=== PATIENT | female | born 1935 | race Caucasian/White ===

== ENCOUNTER 2017-03-12 14:53 | Emergency (ER) | payer OTHER ==
[2017-03-12 15:10] VITALS: BMI 34.3
[2017-03-12] MEDS ORDERED: LIDOCAINE 1%/EPI 1:100000 (50 ML MULTI DOSE VIAL) ONE (15:17)
--- NOTE | 2017-03-12 15:35 | PDOC ---
History of Present Illness - General History Source: Patient, Old Records Exam Limitations: No Limitations <Kasie Posadas - Last Filed: 03/12/17 15:37> - General History Source: Patient, Family, Old Records Exam Limitations: No Limitations - History of Present Illness Initial Comments: 03/12/17 15:48 The patient is a 81 year old female on coumadin for undetermined reason, who presents to the emergency department today with right thigh bleed. The patient states that she was sitting down when she began bleeding. The patient tried to wrap her thigh but the bleeding persisted. PCP: Dr. Kilgore [phone] <Wood Rojas - Last Filed: 03/12/17 15:48> <Wendy Carias - Last Filed: 03/12/17 18:30> - General Stated Complaint: LEG BLEED Time Seen by Provider: 03/12/17 15:08 Past History - Past Medical History Cardiac Disorders: Yes (A-Fib?) Hypercholesterolemia: Yes Thyroid Disease: Yes (hypothyroid) - Psycho/Social/Smoking Cessation Hx Anxiety: No Suicidal Ideation: No Smoking History: Never smoked Have you smoked in the past 12 months: No Information on smoking cessation initiated: No Hx Alcohol Use: No Drug/Substance Use Hx: No Substance Use Type: None <Kasie Posadas - Last Filed: 03/12/17 15:37> <Wood Rojas - Last Filed: 03/12/17 15:48> <Wendy Carias - Last Filed: 03/12/17 18:30> - Past Medical History Allergies/Adverse Reactions: Allergies Allergy/AdvReac Type Severity Reaction Status Date / Time No Known Allergies Allergy Verified 03/12/17 15:34 Home Medications: Ambulatory Orders Allopurinol 300 mg PO DAILY 03/12/17 Amlodipine Besylate [Norvasc -] 5 mg PO DAILY 03/12/17 Aspirin [Ecotrin] 81 mg PO DAILY 03/12/17 Cholecalciferol (Vitamin D3) [Vitamin D3] 2,000 unit PO DAILY 03/12/17 Furosemide [Lasix] 40 mg PO DAILY 03/12/17 Hydralazine HCl [Apresoline -] 75 mg PO BID 03/12/17 Losartan Potassium 100 mg PO DAILY 03/12/17 Methimazole 5 mg PO DAILY 03/12/17 Metoprolol Succinate [Toprol Xl] 100 mg PO BID 03/12/17 Pravastatin Sodium [Pravachol (Nf)] 80 mg PO HS 03/12/17 Warfarin Sodium [Coumadin] 6 mg PO DAILY 03/12/17 Review of Systems - Review of Systems Able to Perform ROS?: Yes Comments:: 03/12/17 15:48 CONSTITUTIONAL: Absent: fever, chills, diaphoresis, generalized weakness, malaise, loss of appetite HEENT: Absent: rhinorrhea, nasal congestion, throat pain, throat swelling, difficulty swallowing, mouth swelling, ear pain, eye pain, visual Changes CARDIOVASCULAR: Absent: chest pain, syncope, palpitations, irregular heart rate, lightheadedness , peripheral edema RESPIRATORY: Absent: cough, shortness of breath, dyspnea with exertion, orthopnea, wheezing, stridor, hemoptysis GASTROINTESTINAL: Absent: abdominal pain, abdominal distension, nausea, vomiting, diarrhea, constipation, melena, hematochezia GENITOURINARY: Absent: dysuria, frequency, urgency, hesitancy, hematuria, flank pain, genital pain MUSCULOSKELETAL: Absent: myalgia, arthralgia, joint swelling SKIN: Absent: rash, itching, pallor HEMATOLOGIC/IMMUNOLOGIC: Present: Easy bleeding Absent: easy bruising, lymphadenopathy, frequent infections ENDOCRINE: Absent: unexplained weight gain, unexplained weight loss, heat intolerance, cold intolerance NEUROLOGIC: Absent: headache, focal weakness or paresthesias, dizziness, unsteady gait, seizure, mental status changes, bladder or bowel incontinence PSYCHIATRIC: Absent: anxiety, depression, suicidal or homicidal ideation, hallucinations. <Wood Rojas - Last Filed: 03/12/17 15:48> *Physical Exam - Vital Signs Last Vital Signs Temp Pulse Resp BP Pulse Ox 98.1 F 84 18 191/93 03/12/17 15:02 03/12/17 15:02 03/12/17 15:02 03/12/17 15:02 <Kasie Posadas - Last Filed: 03/12/17 15:37> - Vital Signs Last Vital Signs Temp Pulse Resp BP Pulse Ox 98.1 F 84 18 191/93 03/12/17 15:02 03/12/17 15:02 03/12/17 15:02 03/12/17 15:02 - Physical Exam Comments: 03/12/17 15:49 GENERAL: Well developed, well nourished. Awake and alert. In no acute distress. HEENT: Normocephalic, atraumatic. PERRLA, EOMI. No conjunctival pallor. Sclera are non- icteric. Moist mucous membranes. Oropharynx is clear. NECK: Supple. Full ROM. No JVD. Carotid pulses 2+ and symmetric, without bruits. No thyromegaly. No lymphadenopathy. CARDIOVASCULAR: Regular rate and rhythm. No murmurs, rubs, or gallops. Distal pulses are 2+ and symmetric. PULMONARY: No evidence of respiratory distress. Lungs clear to auscultation bilaterally. No wheezing, rales or rhonchi. ABDOMINAL: Soft. Non-tender. Non-distended. No rebound or guarding. No organomegaly. Normoactive bowel sounds. MUSCULOSKELETAL Normal range of motion at all joints. No bony deformities or tenderness. No CVA tenderness. EXTREMITIES: (+) Active bleeding from a puncture lesion to post medial aspect of the distal thigh. Appears to be a small underlining varicosity. Thigh was soft and there was no subcutaneous hematoma development. No cyanosis. No clubbing. No edema. SKIN: Warm and dry. Normal capillary refill. No rashes. No jaundice. NEUROLOGICAL: Alert, awake, appropriate. Cranial nerves 2-12 intact. No deficits to light touch and temperature in face, upper extremities and lower extremities. No motor deficits in the in face, upper extremities and lower extremities. Normoreflexic in the upper and lower extremities. Normal speech. Toes are downgoing bilaterally. PSYCHIATRIC: Cooperative. Good eye contact. Appropriate mood and affect. <Wood Rojas - Last Filed: 03/12/17 15:48> - Vital Signs Last Vital Signs Temp Pulse Resp BP Pulse Ox 98.1 F 84 18 191/93 03/12/17 15:02 03/12/17 15:02 03/12/17 15:02 03/12/17 15:02 <Wendy Carias - Last Filed: 03/12/17 18:30> ED Treatment Course - LABORATORY CBC & Chemistry Diagram: 03/12/17 15:50 - ADDITIONAL ORDERS Additional order review: Laboratory Results 03/12/17 03/12/17 15:50 15:50 INR 2.71 H PTT (Actin FS) 41.1 H 03/12/17 15:50 RBC 4.18 MCV 87.8 MCHC 32.5 RDW 16.6 H MPV 8.7 Neutrophils % 80.8 Lymphocytes % 9.6 Monocytes % 6.7 Eosinophils % 1.7 Basophils % 1.2 <Wendy Carias - Last Filed: 03/12/17 18:30> Medical Decision Making - Medical Decision Making 03/12/17 15:37 81-year-old female with history of hypertension, on Coumadin for unclear reasons presents to the emergency department with bleeding from a varicosity that occurred spontaneously earlier this afternoon. Plan: 1. The patient was prepped with Betadine and anesthetized with 4 mL of 1% lidocaine with epinephrine. 4-0 Prolene was used to place a [id number] stitch at the bleeding site with appropriate hemostasis achieved. 2. Check CBC 3. Check PT/INR 4. Observe the bleeding site for hematoma and continued hemostasis 5. Observe and reevaluate <Kasie Posadas - Last Filed: 03/12/17 15:37> - Medical Decision Making 03/12/17 18:29 assumed care of pt at [address] Posadas,. pt here with bleeding varicose vein on coumadin which was tied off, and dressed. since observation no rebleeding or signs of induration or hematoma. given jv wrap for additional support and compression. advised to wear compression stocking. INR 2.7 within therapuetic limits. told to return for reeval or suture removal in 10 days. and follow [facility] pcp. nabil <Wendy Carias - Last Filed: 03/12/17 18:30> *DC/Admit/Observation/Transfer - Attestations Physician Attestion: 03/12/17 15:39 I, Dr. Kasie Posadas, attest that the scribes documentation that appears above has been prepared under my direction and personally reviewed by me in its entirety. I confirmed that the note above accurately reflects all work, treatment, procedures, and medical decision-making performed by me. <Kasie Posadas - Last Filed: 03/12/17 15:37> - Attestations Scribe Attestion: 03/12/17 15:49 Documentation prepared by Wood Rojas, acting as biomedical engineering technologist for Kasie Posadas MD. <Wood Rojas - Last Filed: 03/12/17 15:48> - Discharge Dispostion Admit: No <Wendy Carias - Last Filed: 03/12/17 18:30> Diagnosis at time of Disposition: Hemorrhage of varicose veins of right lower extremity - Referrals Referrals: Bg Kilgore MD [Primary Care Provider] - - Patient Instructions Printed Discharge Instructions: Varicose Veins (Alternative Therapy), Treatment of Varicose Veins of the Leg Additional Instructions: you should wear support stockings for prevention of worsening varicose veins. return for suture removal in 10 days. or sooner for signs of infection such as fever, redness , swelling or yellow discharge. if rebleeding, you should hold compression for 15 minutes. if it does not stop then return to ED. you should elevate legs today. use jv wrap for additional compression for 48 hours. follow up with your regular doctor. your INR is 2.7.
[2017-03-12 15:53] LABS: BASOPHIL 1.2 % (0-2.0); EOSINOPHIL 1.7 % (0-4.5); MCH 28.5 pg (25.7-33.7); MCHC 32.5 g/dl (32.0-36.0); MEAN CELL VOLUME 87.8 fl (80-96); MEAN PLT VOLUME 8.7 fl (7.5-11.1); NEUTROPHILS 80.8 % (42.8-82.8); PLATELET COUNT 168 K/MM3 (134-434); RDW 16.6 % (11.6-15.6); WHITE BLOOD COUNT 8.2 K/mm3 (4.0-10.0)
[2017-03-12 16:31] LABS: INR 2.71 (0.82-1.09); PROTHROMBIN TIME (PATIENT) 30.4 SEC (9.98-11.88)
[2017-03-12 18:42] VITALS: BP 172/78; PULSE 90; TEMP 98.4
== END 2017-03-12 18:43 | disposition home or self-care (01) ==
LOC: JER 14:53
PROC: 0HQHXZZ Repair Right Upper Leg Skin, External Approach (ICD-10-PCS; principal; 2017-03-12)
DX: I83.891 Varicose veins of right lower extremity with other complications (principal); I10 Essential (primary) hypertension; I48.91 Unspecified atrial fibrillation; Z79.01 Long term (current) use of anticoagulants; E03.9 Hypothyroidism, unspecified
CPT/HCPCS: 12001-25; 36415; 85025; 85610; 85730; 99283-25

== ENCOUNTER 2017-11-20 11:47 | Inpatient (IN) | payer OTHER ==
[2017-11-20 12:16] VITALS: BMI 35.7
--- NOTE | 2017-11-20 13:44 | PDOC ---
History of Present Illness - General Chief Complaint: Shortness of Breath Stated Complaint: SOB Time Seen by Provider: 11/20/17 13:07 History Source: Patient, Family Exam Limitations: No Limitations - History of Present Illness Initial Comments: This is a 81 YOF with h/o chronic constipation, A-fib on coumadin, HTN, HLD, and RLE venous stasis ulcer with prior bleeding varicose vein (seen by Dr. Prabhjot Long), who was advised by her PCP Dr. Kilgore to come to the ED to be seen for SOB, leg pain, and abdominal distention. The patient and her family state that for the past few weeks, she has been having worsening abdominal distention and leg swelling/pain. She additionally has had worsening shortness of breath for the past several days, which she describes as becoming winded quickly when exerting herself. She has been taking MiraLax as always for her chronic constipation, her last bowel movement was this morning and was small, and there has been no change in her baseline constipation. She has had no night sweats, fever, chills, nausea, vomiting, diarrhea, chest pain, abdominal pain, back pain, black/bloody stool, cough, or other symptoms. The family estimates she has gained at least 10 lbs in the past week. Past History - Past Medical History Allergies/Adverse Reactions: Allergies Allergy/AdvReac Type Severity Reaction Status Date / Time No Known Allergies Allergy Verified 03/12/17 15:34 Home Medications: Ambulatory Orders Allopurinol 300 mg PO DAILY 03/12/17 Amlodipine Besylate [Norvasc -] 5 mg PO DAILY 03/12/17 Aspirin [Ecotrin] 81 mg PO DAILY 03/12/17 Cholecalciferol (Vitamin D3) [Vitamin D3] 2,000 unit PO DAILY 03/12/17 Furosemide [Lasix] 40 mg PO DAILY 03/12/17 Losartan Potassium 100 mg PO DAILY 03/12/17 Methimazole 5 mg PO DAILY 03/12/17 Metoprolol Succinate [Toprol Xl] 100 mg PO BID 03/12/17 Pravastatin Sodium [Pravachol (Nf)] 80 mg PO HS 03/12/17 Warfarin Sodium [Coumadin] 6 mg PO DAILY 03/12/17 hydrALAZINE HCL [Apresoline -] 100 mg PO BID 03/12/17 Cardiac Disorders: Yes (A-Fib) COPD: No HTN: Yes Hypercholesterolemia: Yes Thyroid Disease: Yes (hypothyroid) - Suicide/Smoking/Psychosocial Hx Smoking History: Never smoked Have you smoked in the past 12 months: No Hx Alcohol Use: No Drug/Substance Use Hx: No Substance Use Type: None *Physical Exam - Vital Signs Last Vital Signs Temp Pulse Resp BP Pulse Ox 97.9 F 80 24 134/73 95 11/20/17 12:13 11/20/17 12:13 11/20/17 12:13 11/20/17 12:13 11/20/17 12:13 - Physical Exam General Appearance: Yes: Nourished, Appropriately Dressed, Mild Distress, Obese , Other (answering questions appropriately, accompanied by family, standing and swaying uncomfortably back and forth, holding her abdomen) HEENT: positive: EOMI, DICK, Normal Voice, Hearing Grossly Normal. negative: Scleral Icterus (R), Scleral Icterus (L), Nasal Congestion Neck: positive: Trachea midline, Supple. negative: Tender, Rigid Respiratory/Chest: positive: Lungs Clear, Normal Breath Sounds, Other (shallow respirations). negative: Respiratory Distress, Crackles, Rhonchi, Stridor, Wheezing Cardiovascular: positive: Regular Rhythm, Regular Rate, Edema (1+ pitting BLE). negative: Murmur Gastrointestinal/Abdominal: positive: Normal Bowel Sounds, Tender (minimal diffuse), Distended, Other (very protuberant tight abdomen, difficult to evaluate for organomegaly or pulsatile masses) Musculoskeletal: positive: Normal Inspection. negative: Decreased Range of Motion, Vertebral Tenderness Extremity: positive: Normal Capillary Refill, Normal Inspection, Normal Range of Motion. negative: Tender, Cyanosis Integumentary: positive: Normal Color, Dry, Warm, Other (very dry flaky skin BLE distally, BLE with venous stasis changes). 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 On exam VS are wnl, she is standing an swaying uncomfortably back and forth, holding her abdomen, very protuberant tight abdomen. Heart and lungs clear exams except shallow breathing, legs are painful with venous stasis changes, skin very dry/flaky. DDX IBNLT constipation, ascites, hemoperitoneum, diverticulitis, malignancy, ascites, organomegaly, AAA, etc. Ordered is CBCD CMP Mg Phos Cardiac panel BNP Lactate BCx Lipase UA and UCx EKG CXR and CT abdomen/pelvis. 11/20/17 15:17 INR is 2.96, BUN/Cr 46/1.8, LDH 292, otherwise blood labs unremarkable. Lactate is 2.2 (but notably patient gained weight even on diuretics Spoke with Dr. Kilgore who admits to Telemetry inpatient. States that she had ascites positive by US last week. Placed on diuretics but continued to gain. Requests consult placed to Dr. Irving. Decision to Admit and consult order placed. 11/20/17 16:00 Patient requesting pain medication for legs, Alk Phos 149 but otherwise LFTs wnl , given 650 Tylenol PO. *DC/Admit/Observation/Transfer Diagnosis at time of Disposition: Abdominal distention, Shortness of breath, Acute kidney injury - Discharge Dispostion Condition at time of disposition: Guarded Admit: Yes - Referrals - Patient Instructions - Post Discharge Activity
[2017-11-20 14:27] LABS: VENOUS PC02 45.6 mmHg (38-52); VENOUS PH 7.37 (7.32-7.42); VENOUS PO2 42.8 mmHg (28-48)
[2017-11-20 14:33] LABS: BASO % 1.4 % (0-2.0); EOS % 1.9 % (0-4.5); HEMATOCRIT 38.1 % (32.4-45.2); MCH 25.6 pg (25.7-33.7); MCHC 31.6 g/dl (32.0-36.0); MEAN CELL VOLUME 80.9 fl (80-96); MEAN PLT VOLUME 8.8 fl (7.5-11.1); MONO % 7.6 % (3.8-10.2); NEUT % 79.1 % (42.8-82.8); PLATELET COUNT 246 K/MM3 (134-434); RBC 4.71 M/mm3 (3.60-5.2); RDW 17.5 % (11.6-15.6); WHITE BLOOD COUNT 7.2 K/mm3 (4.0-10.0)
[2017-11-20 14:47] LABS: INR 2.96 (0.82-1.09); PROTHROMBIN TIME (PATIENT) 33.4 SEC (9.98-11.88)
[2017-11-20 14:50] LABS: ACTIVATED PTT 43.1 SECONDS (26.9-34.4)
[2017-11-20 15:00] LABS: ALBUMIN 3.4 g/dl (3.4-5.0); ANION GAP 14 (8-16); BLOOD UREA NITROGEN 46 mg/dL (7-18); CALCIUM 8.9 mg/dL (8.5-10.1); CHLORIDE 100 mmol/L (98-107); CO2 24 mmol/L (21-32); CREATININE 1.8 mg/dL (0.55-1.02); GLUCOSE,RANDOM 91 mg/dL (74-106); LDH 292 U/L (84-246); LIPASE 107 U/L (73-393); POTASSIUM 4.3 mmol/L (3.5-5.1); SGOT/AST 22 U/L (15-37); SGPT/ALT 18 U/L (12-78); SODIUM 138 mmol/L (136-145)
[2017-11-20 15:04] LABS: ALK PHOS 149 U/L (45-117)
--- NOTE | 2017-11-20 15:10 | PDOC ---
Attending Attestation - Resident Resident Name: Christine Jeong - ED Attending Attestation I have performed the following: I have examined & evaluated the patient, The case was reviewed & discussed with the resident, I agree w/resident's findings & plan, Exceptions are as noted - HPI HPI: 11/20/17 15:05 81y/o F p/w progressive abdominal distension and now MERINO over weeks. workup in Dr. Kilgore's office was unremarkable this week, sent to ED today for CTAP and further workup. no vomiting, some constipation. no edema, + SOB. at baseline sleeps in seated position. - Physicial Exam PE: 11/20/17 15:08 VSS well appearing speaking full sentences no jvd bibasilar crackles abd distended, tympanic. diffuse discomfort to palpation without guarding/ rebound. peripheral venous stasis changes, chronic - Medical Decision Making 11/20/17 15:09 Patient seen and evaluated with the resident. I agree with the overall evaluation, assessment, and management with the following summary of visit: 81-year-old female with progressive abdominal distention causing dyspnea on exertion. Question ascites versus obstruction, question primary cardiac pulmonary in etiology. Labs, urinalysis CT of the abdomen and pelvis. Chest and abdomen x-rays and echocardiogram performed as outpatient within the last week showed no acute abnormalities Reassess, likely admission, will discuss with Dr. Kilgore Heart Score/ECG Review #1 ECG reviewed & interpreted by me at: 14:28 11/20/17 15:11 afib at 76. inferior and V4-V6 TWI. no acute st changes.
--- NOTE | 2017-11-20 15:44 | EKG ---
Test Reason : Blood Pressure : / mmHG Vent. Rate : 074 BPM Atrial Rate : 075 BPM P-R Int : 000 ms QRS Dur : 100 ms QT Int : 390 ms P-R-T Axes : 000 105 -31 degrees QTc Int : 432 ms POOR DATA QUALITY, INTERPRETATION MAY BE ADVERSELY AFFECTED ATRIAL FIBRILLATION RIGHTWARD AXIS CANNOT RULE OUT ANTERIOR INFARCT , AGE UNDETERMINED ABNORMAL ECG NO PREVIOUS ECGS AVAILABLE Confirmed by NILS IRVING MD ([id number]) on 11/20/2017 3:44:20 PM Referred By: Confirmed By:NILS IRVING MD
[2017-11-20] MEDS ORDERED: ACETAMINOPHEN 325 MG TABLET (FP) PO ONE (16:00)
[2017-11-20] MEDS ORDERED: ACETAMINOPHEN 325 MG TABLET (FP) ONE (16:25)
[2017-11-20] MEDS: WARFARIN NA 3 MG TABLET PO SCH (21:33)
[2017-11-20] MEDS: ATORVASTATIN CA 20 MG TABLET (FP) PO SCH (21:33)
[2017-11-20] MEDS: hydrALAZINE HCL 50 MG TABLET (FP) PO SCH (21:33)
[2017-11-20] MEDS ORDERED: PATIENT'S OWN MEDICATION (NON-FORMULARY) (Pravastatin Sodium 80 MG) PO SCH (22:00)
[2017-11-21 07:12] LABS: EOS % 2.2 % (0-4.5); HEMATOCRIT 36.2 % (32.4-45.2); HEMOGLOBIN 11.4 GM/dL (10.7-15.3); LYMPH % 13.5 % (8-40); MCH 25.4 pg (25.7-33.7); MCHC 31.4 g/dl (32.0-36.0); MEAN CELL VOLUME 80.9 fl (80-96); MEAN PLT VOLUME 8.8 fl (7.5-11.1); MONO % 10.8 % (3.8-10.2); NEUT % 71.5 % (42.8-82.8); PLATELET COUNT 206 K/MM3 (134-434); RBC 4.48 M/mm3 (3.60-5.2); RDW 17.4 % (11.6-15.6); WHITE BLOOD COUNT 5.5 K/mm3 (4.0-10.0)
[2017-11-21 08:10] LABS: ALBUMIN 3.1 g/dl (3.4-5.0); ANION GAP 11 (8-16); BLOOD UREA NITROGEN 44 mg/dL (7-18); CALCIUM 8.6 mg/dL (8.5-10.1); CHLORIDE 102 mmol/L (98-107); CO2 28 mmol/L (21-32); GLUCOSE,RANDOM 107 mg/dL (74-106); POTASSIUM 4.2 mmol/L (3.5-5.1); SODIUM 141 mmol/L (136-145)
[2017-11-21 08:15] LABS: ALK PHOS 129 U/L (45-117); CREATININE 1.8 mg/dL (0.55-1.02); SGOT/AST 19 U/L (15-37); SGPT/ALT 16 U/L (12-78); TOT PROT 6.3 g/dl (6.4-8.2)
--- NOTE | 2017-11-21 08:59 | HP ---
Admitting History and Physical - Admission History of Present Illness: 81 YOF with h/o chronic constipation, A-fib on coumadin, HTN, HLD, and RLE venous stasis ulcer with prior bleeding varicose vein (seen by Dr. Prabhjot Long) , who was seen in office a few days ago with progressive swelling and refused admission and was started on diuretics and was seen in office yesterday and gained more wt and was advised to go to the ED to be seen for SOB, leg pain, and abdominal distention. The patient and her family state that for the past few weeks, she has been having worsening abdominal distention and leg swelling/ pain. She additionally has had worsening shortness of breath for the past several days, which she describes as becoming winded quickly when exerting herself. She has been taking MiraLax as always for her chronic constipation, her last bowel movement was this morning and was small, and there has been no change in her baseline constipation. She has had no night sweats, fever, chills , nausea, vomiting, diarrhea, chest pain, abdominal pain, back pain, black/ bloody stool, cough, or other symptoms. The family estimates she has gained at least 10 lbs in the past week. - Past Medical History Cardiovascular: Yes: AFIB, CHF, HTN, Other (venous insuficiency varicose veins) Pulmonary: Yes: COPD Gastrointestinal: Yes: Constipation, Other (has refused colonoscopy) - Smoking History Smoking history: Never smoked Have you smoked in the past 12 months: No - Alcohol/Substance Use Hx Alcohol Use: No Home Medications - Allergies Allergies/Adverse Reactions: Allergies Allergy/AdvReac Type Severity Reaction Status Date / Time No Known Allergies Allergy Verified 03/12/17 15:34 - Home Medications Home Medications: Ambulatory Orders Allopurinol 300 mg PO DAILY 03/12/17 Amlodipine Besylate [Norvasc -] 5 mg PO DAILY 03/12/17 Aspirin [Ecotrin] 81 mg PO DAILY 03/12/17 Cholecalciferol (Vitamin D3) [Vitamin D3] 2,000 unit PO DAILY 03/12/17 Furosemide [Lasix] 40 mg PO BID 03/12/17 Losartan Potassium 100 mg PO DAILY 03/12/17 Methimazole 5 mg PO DAILY 03/12/17 Metoprolol Succinate [Toprol Xl] 100 mg PO BID 03/12/17 Pravastatin Sodium [Pravachol (Nf)] 80 mg PO HS 03/12/17 Warfarin Sodium [Coumadin] 6 mg PO HS 03/12/17 hydrALAZINE HCL [Apresoline -] 100 mg PO BID 03/12/17 Acetaminophen 325 mg PO Q4H PRN 11/20/17 Polyethylene Glycol 3350 [Miralax (For Daily Use) -] 17 gm PO DAILY PRN Review of Systems - Review of Systems Cardiovascular: reports: Edema, Shortness of Breath. denies: Chest Pain Respiratory: reports: SOB, SOB on Exertion Gastrointestinal: reports: Abdominal Pain, Bloating, Constipation Genitourinary: denies: Burning, Dysuria, Flank Pain Physical Examination Vital Signs: Vital Signs Temperature 97.5 F L 11/21/17 06:30 Pulse Rate 69 11/21/17 06:30 Respiratory Rate 18 11/21/17 06:30 Blood Pressure 128/58 11/21/17 06:30 O2 Sat by Pulse Oximetry (%) 96 11/20/17 21:00 Neck: Yes: Supple Cardiovascular: Yes: S1, S2 Respiratory: Yes: Diminished, Rales Gastrointestinal: Yes: Normal Bowel Sounds, Soft, Ascites, Distention. No: Tenderness Edema: Yes Labs: CBC, BMP 11/21/17 06:27 11/21/17 06:27 Imaging - Results Cat Scan: Report Reviewed Problem List - Problems (1) Ascites Assessment/Plan: IV LASIX GI CONSULT CT NOTED Code(s): R18.8 - OTHER ASCITES (2) CHF (congestive heart failure) Assessment/Plan: IV LASIX ECHO CARDIO Code(s): I50.9 - HEART FAILURE, UNSPECIFIED (3) Abdominal distention Assessment/Plan: ABOVE Code(s): R14.0 - ABDOMINAL DISTENSION (GASEOUS) (4) Acute kidney injury Assessment/Plan: DUE TO DIURETICS CONTINUE WITH LASIX MONITOR Code(s): N17.9 - ACUTE KIDNEY FAILURE, UNSPECIFIED (5) Venous stasis ulcer Code(s): I83.009 - VARICOSE VEINS OF UNSP LOWER EXTREMITY W ULCER OF UNSP SITE; L97.909 - NON-PRS CHRONIC ULC UNSP PRT OF UNSP LOW LEG W UNSP SEVERITY
--- NOTE | 2017-11-21 09:25 | CON.CARD ---
Consult Consult Specialty:: Cardiology Referred by:: Dr. Torres Reason for Consultation:: Dyspnea with evidence of CHF - History of Present Illness Chief Complaint: Progressive SOB and leg edema History of Present Illness: 81 year-old woman with a PMHx of atrial fibrillation on Warfarin, HTN, HLD, venous stasis with ulcer and prior bleeding varicose vein (seen by Dr. Prabhjot Long), chronic constipation, admitted 11/20/2017 with progressive SOB, leg pain and abdominal distention. The patient has been having worsening shortness of breath on exertion with markedly decreased exercise tolerance, abdominal distention and leg swelling/ pain for several weeks before admission. She has been taking MiraLax as always for her chronic constipation. She has gained at least 10 lbs in the past week. She denies SOB at rest, chest pain, palpitation, dizziness, syncope or near syncope. No orthopnea on PND. ECG 11/20/2017 showed atrial fibrillation with controlled VR at 74 BPM with IVCD and inferior and lateral ST and T abnormalities. CT chest and abdomen 11/20/2017 revealed cardiomegaly, CHF, pleural effusion and free fluid in the abdomen. Echo 11/21/2017: LV is "D" shape with paradoxical septal motion and normal LV systolic function. RV is dilated and hypokinetic. Severe LA and RA dilatation. Severe pulmonary hypertension. PASP = 106 mmHg. - History Source History Provided By: Patient, Medical Record Limitations to Obtaining History: No Limitations - Past Medical History Cardio/Vascular: Yes: AFIB, CHF, HTN Gastrointestinal: Yes: Ascites, Other (Constipation) ...: No - Alcohol/Substance Use Hx Alcohol Use: No - Smoking History Smoking history: Never smoked Have you smoked in the past 12 months: No Home Medications - Allergies Allergies/Adverse Reactions: Allergies Allergy/AdvReac Type Severity Reaction Status Date / Time No Known Allergies Allergy Verified 03/12/17 15:34 - Home Medications Home Medications: Ambulatory Orders Allopurinol 300 mg PO DAILY 03/12/17 Amlodipine Besylate [Norvasc -] 5 mg PO DAILY 03/12/17 Aspirin [Ecotrin] 81 mg PO DAILY 03/12/17 Cholecalciferol (Vitamin D3) [Vitamin D3] 2,000 unit PO DAILY 03/12/17 Furosemide [Lasix] 40 mg PO BID 03/12/17 Losartan Potassium 100 mg PO DAILY 03/12/17 Methimazole 5 mg PO DAILY 03/12/17 Metoprolol Succinate [Toprol Xl] 100 mg PO BID 03/12/17 Pravastatin Sodium [Pravachol (Nf)] 80 mg PO HS 03/12/17 Warfarin Sodium [Coumadin] 6 mg PO HS 03/12/17 hydrALAZINE HCL [Apresoline -] 100 mg PO BID 03/12/17 Acetaminophen 325 mg PO Q4H PRN 11/20/17 Polyethylene Glycol 3350 [Miralax (For Daily Use) -] 17 gm PO DAILY PRN Review of Systems - Review of Systems Constitutional: reports: Weakness Eyes: reports: No Symptoms HENT: reports: No Symptoms Neck: reports: No Symptoms Cardiovascular: reports: Edema, Shortness of Breath Respiratory: reports: SOB, SOB on Exertion Gastrointestinal: reports: Constipation Genitourinary: reports: No Symptoms Breasts: reports: No Symptoms Reported Musculoskeletal: reports: No Symptoms Integumentary: reports: Change in Color, Erythema Psychiatric: reports: No Symptoms Vital Signs: Vital Signs Temperature 97.5 F L 11/21/17 06:30 Pulse Rate 69 11/21/17 06:30 Respiratory Rate 18 11/21/17 06:30 Blood Pressure 128/58 11/21/17 06:30 O2 Sat by Pulse Oximetry (%) 96 11/20/17 21:00 Constitutional: Yes: Well Nourished, No Distress, Calm HENT: Yes: Atraumatic, Normocephalic Neck: Yes: Supple, Trachea Midline Respiratory: Yes: Regular, Dullness, Poor Air Entry, Rales Gastrointestinal: Yes: Soft, Abdomen, Obese, Ascites, Distention Cardiovascular: Yes: Pulse Irregular JVD: Yes Carotid Bruit: No PMI: Non-Displaced Heart Sounds: Yes: S1, S2 Murmur: Yes: Systolic Murmur, Grade 1 Musculoskeletal: Yes: Joint Stiffness Extremities: Yes: Erythema Edema: LLE: 1+, RLE: 1+ Peripheral Pulses: 1+ Left Carotid, 1+ Right Carotid, 1+ Left Doralis Pedis, 1+ Right Dorsalis Pedis Integumentary: Yes: Erythema (Bilteral legs) - Other Data Labs, Other Data: CBC, BMP 11/21/17 06:27 11/21/17 06:27 INR, PTT INR 2.96 (0.82-1.09) H 11/20/17 14:02 Troponin, BNP 11/20/17 11/20/17 11/20/17 14:02 14:03 16:35 Troponin I 0.04 Cancelled Cancelled 11/21/17 06:27 Troponin I 0.04 Troponin, BNP 11/20/17 11/20/17 11/20/17 14:02 14:03 16:35 Troponin I 0.04 Cancelled Cancelled 11/21/17 06:27 Troponin I 0.04 ECG 11/20/2017 showed atrial fibrillation with controlled VR at 74 BPM with IVCD and inferior and lateral ST and T abnormalities. Echo: Report Reviewed (Echo 11/21/2017: LV is "D" shape with paradoxical septal motion and normal LV systolic function. RV is dilated and hypokinetic. Severe LA and RA dilatation. Severe pulmonary hypertension. PASP = 106 mmHg.) Ejection Fraction %: LVEF > or = 40 % (65%) Assessment/Plan 81 year-old woman with a PMHx of atrial fibrillation on Warfarin, HTN, HLD, venous stasis with ulcer and prior bleeding varicose vein (seen by Dr. Prabhjot Long), chronic constipation, admitted 11/20/2017 with progressive SOB, leg pain and abdominal distention with evidence of fluid overload. ECG 11/20/2017 showed atrial fibrillation with controlled VR at 74 BPM with IVCD and inferior and lateral ST and T abnormalities. CT chest and abdomen 11/20/2017 revealed cardiomegaly, CHF, pleural effusion and free fluid in the abdomen. Echo 11/21/2017: LV is "D" shape with paradoxical septal motion and normal LV systolic function. RV is dilated and hypokinetic. Severe LA and RA dilatation. Severe pulmonary hypertension. PASP = 106 mmHg. 1) CHF: Acute diastolic CHF, right heart failure and severe pulmonary hypertension. Diuresis with IV Lasix 40 mg q12h to keep Os > Is. Monitor renal function and electrolytes. Daily weight. Pulmonary evaluation to rule out pulmonary causes of severe pulmonary hypertension (Group III pulmonary hypertension). 2) Chronic atrial fibrillation: Ventricular rate is well controlled. Continue metoprolol Continue warfarin to keep INR 2-3. 3) HTN: BP controlled. Will discontinue Norvasc and hydralazine while receiving IV Lasix. Continue Metoprolol.
--- NOTE | 2017-11-21 09:43 | PN ---
Progress Note (short form) - Note Progress Note: ID CONSULT DICTATED imp/reccd elevated lactic acid- resolved increasing abdominal girth-ascites- ?gi versus cardiac s/p laser treatment of varicose veins both legs with incresed right ankle pain ( ulcers have healed) chronic venous stasis d/w daughter at the bedside will get xray of right ankle GI and Cardiology f/u no need for antibiotics at this time Problem List - Problems (1) Lactic acidosis Code(s): E87.2 - ACIDOSIS (2) Abdominal distention Code(s): R14.0 - ABDOMINAL DISTENSION (GASEOUS) (3) Ascites Code(s): R18.8 - OTHER ASCITES (4) Chronic venous stasis dermatitis Code(s): I87.2 - VENOUS INSUFFICIENCY (CHRONIC) (PERIPHERAL) (5) Right ankle pain Code(s): M25.571 - PAIN IN RIGHT ANKLE AND JOINTS OF RIGHT FOOT
[2017-11-21] MEDS: hydrALAZINE HCL 50 MG TABLET (FP) PO SCH (09:58)
[2017-11-21] MEDS: LOSARTAN POTASSIUM 50 MG TABLET (FP) PO SCH (09:58)
[2017-11-21] MEDS: ALLOPURINOL 300 MG TABLET (FP) PO SCH (09:58)
[2017-11-21] MEDS: METHIMAZOLE 5 MG TABLET (FP) PO SCH (09:58)
[2017-11-21] MEDS ORDERED: PATIENT'S OWN MEDICATION (NON-FORMULARY) (Losartan Potassium [Losartan Potassium] 100 MG) PO SCH (10:00)
--- NOTE | 2017-11-21 11:51 | CONS ---
INFECTIOUS DISEASE CONSULTATION DATE OF CONSULTATION: DATE OF DICTATION: 11/21/2017 REQUESTING PHYSICIAN: Bg Kilgore MD HISTORY OF PRESENT ILLNESS: This is a 81-year-old woman. She lives at home with her . She has a history of chronic constipation, atrial fibrillation on Coumadin, bilateral venous stasis ulcers. She has had laser surgery to both her legs, two to the left and one to the right which were completed about 2 months ago. She made a trip with her for 10 days to [place] because her brother . [place] and complained of worsening abdominal distention. She reports she feels her abdomen is like a balloon, and she states because it is so large, she is having trouble breathing. She has had no fever. She has had no chills. She had 1 small bowel movement this morning. She has no nausea, vomiting, chest pain, or abdominal pain. She has noted this abdominal girth as well. She complains that her right ankle is painful. She states it has been painful the entire time since she had the laser surgery to her legs, but that the pain is still present and perhaps has increased. Of note, the family notes that the superficial ulcerations on her legs, especially the right leg, have all healed and that the erythema to her leg from her venous stasis is at its baseline. ALLERGIES: She has no known drug allergies. MEDICATIONS AT HOME: Include allopurinol, amlodipine, aspirin, vitamin D, Lasix, losartan, methimazole, metoprolol, Pravachol, Coumadin, and Apresoline. PAST MEDICAL HISTORY: Notable for a history of atrial fibrillation, heart failure, hypertension, chronic venous stasis with varicose veins, COPD, chronic constipation. SOCIAL HISTORY: There is no history of any cigarette or substance use. Of note, she just returned from [place]. PHYSICAL EXAMINATION: General: She is awake and alert. Vital Signs: Temperature is 97.5, pulse of 69, blood pressure 128/58, respiratory rate is 18. HEENT: She is normocephalic. Her eyes are anicteric. She has no thrush. Neck: Supple. Lungs: Diminished breath sounds at the bases. Heart: Regular rate and rhythm. Abdomen: Distended, soft. Question of ascites. She has bilateral subcutaneous flank edema. Extremities: Notable for bilateral venous stasis changes. The right ankle has no swelling, but she reports discomfort on touching the leg. LABORATORY DATA: Labs are notable for a white count of 5.5, hemoglobin 11.4, platelets are 206. INR is 2.9. BUN is 44 and creatinine 1.8. On admission, she had a lactic acid of 2.2. That is 1.1 this morning. LFTs are notable for alkaline phosphatase of 129. Her albumin is 3.1. She had in the emergency room a chest x-ray that was notable for cardiomegaly and bilateral pleural effusions. She had CT scans of her abdomen, pelvis, and chest that were done, that were notable for mild congestion with bilateral pleural effusions, left greater than right, and cardiomegaly. CT of the abdomen and pelvis notable for moderate intraperitoneal fluid, prominent bilateral flank subcutaneous edema. In summary, this is a 81-year-old woman admitted with: 1. Increasing abdominal girth and ascites. Question of whether this is gastrointestinal versus cardiac. 2. Elevated lactic acid that is resolved. 3. Status post laser treatment of varicose veins in both her legs, with increased right ankle pain. Ulcers have healed. Family reports her legs look better. 4. Chronic venous stasis. Case was discussed at length with her daughter at the bedside. We will get an x-ray of her right ankle and foot. GI and cardiology followup have been ordered. No need for antibiotics at this time. Would send a UA as well. MARCIA WEBSTER M.D. [id number]
[2017-11-21] MEDS: ACETAMINOPHEN 325 MG TABLET (FP) PO PRN (12:10)
--- NOTE | 2017-11-21 12:18 | EKG ---
Test Reason : Blood Pressure : / mmHG Vent. Rate : 070 BPM Atrial Rate : 064 BPM P-R Int : 000 ms QRS Dur : 104 ms QT Int : 400 ms P-R-T Axes : 000 101 -17 degrees QTc Int : 432 ms ATRIAL FIBRILLATION WITH A COMPETING JUNCTIONAL PACEMAKER RIGHTWARD AXIS ABNORMAL QRS-T ANGLE, CONSIDER PRIMARY T WAVE ABNORMALITY ABNORMAL ECG WHEN COMPARED WITH ECG OF 20-NOV-2017 14:28, NONSPECIFIC T WAVE ABNORMALITY NO LONGER EVIDENT IN LATERAL LEADS Confirmed by MD PATRICIO, NILA ([id number]) on 11/21/2017 12:18:26 PM Referred By: Confirmed By:NILA CURRY MD
--- NOTE | 2017-11-21 12:20 | CON.GI ---
Consult Consult Specialty:: Gastroenterology Referred by:: Dr Kilgore Reason for Consultation:: Distended abdomen - History of Present Illness Chief Complaint: Increasing abdominal distension and worsening exercise tolerance History of Present Illness: 81F is admitted with 1 month h/o increasing abdominal distension associated with worsening dypsnea on exertion. She has chronic brawny LE edema and constipation. She has developed lower extremity ulcers and had recent vascular procedures with Dr Long. She has never had a colonoscopy and will not allow one. No FH of colon cancer. She denies narrowed stools or recent rectal bleeding. She was evaluated by Dr Celestin at one time and told of hemorrhoids. - History Source History Provided By: Patient, Family Member Limitations to Obtaining History: No Limitations - Past Medical History Cardio/Vascular: Yes: AFIB, CHF (LV diastolic dyspfunction and cor pulmonale), HTN, Hyperlipdemia, Pulmonary Hypertension, Other (venous insufficiency) Gastrointestinal: Yes: Ascites, Constipation, Hemorrhoids, Other (Constipation) ...: No Endocrine: Yes: Hyperthyroidism - Past Surgical History Past Surgical History: Yes: None - Alcohol/Substance Use Hx Alcohol Use: No History of Substance Use: reports: None - Smoking History Smoking history: Never smoked Have you smoked in the past 12 months: No - Social History Usual Living Arrangement: With Spouse ADL: Independent 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year[place] age 21 History of Recent Travel: Yes ([place]) Home Medications - Allergies Allergies/Adverse Reactions: Allergies Allergy/AdvReac Type Severity Reaction Status Date / Time No Known Allergies Allergy Verified 03/12/17 15:34 - Home Medications Home Medications: Ambulatory Orders Allopurinol 300 mg PO DAILY 03/12/17 Amlodipine Besylate [Norvasc -] 5 mg PO DAILY 03/12/17 Aspirin [Ecotrin] 81 mg PO DAILY 03/12/17 Cholecalciferol (Vitamin D3) [Vitamin D3] 2,000 unit PO DAILY 03/12/17 Furosemide [Lasix] 40 mg PO BID 03/12/17 Losartan Potassium 100 mg PO DAILY 03/12/17 Methimazole 5 mg PO DAILY 03/12/17 Metoprolol Succinate [Toprol Xl] 100 mg PO BID 03/12/17 Pravastatin Sodium [Pravachol (Nf)] 80 mg PO HS 03/12/17 Warfarin Sodium [Coumadin] 6 mg PO HS 03/12/17 hydrALAZINE HCL [Apresoline -] 100 mg PO BID 03/12/17 Acetaminophen 325 mg PO Q4H PRN 11/20/17 Polyethylene Glycol 3350 [Miralax (For Daily Use) -] 17 gm PO DAILY PRN Family Disease History - Family Disease History Family Disease History: Diabetes: Brother ( [place]), Heart Disease: Brother, Other: Father (lived into 80s), Mother (lived into 80s) Review of Systems - Review of Systems Constitutional: reports: Malaise Eyes: reports: No Symptoms HENT: reports: No Symptoms Neck: reports: Stiffness Cardiovascular: reports: Shortness of Breath Respiratory: reports: Exercise Intolerance, SOB, SOB on Exertion Gastrointestinal: reports: Bloating, Constipation Musculoskeletal: reports: No Symptoms Neurological: reports: No Symptoms Physical Exam-GI Vital Signs: Vital Signs Temperature 97.5 F L 11/21/17 06:30 Pulse Rate 69 11/21/17 06:30 Respiratory Rate 18 11/21/17 06:30 Blood Pressure 128/58 11/21/17 06:30 O2 Sat by Pulse Oximetry (%) 96 11/20/17 21:00 CBC,CMP WBC 5.5 K/mm3 (4.0-10.0) 11/21/17 06:27 RBC 4.48 M/mm3 (3.60-5.2) 11/21/17 06:27 Hgb 11.4 GM/dL (10.7-15.3) 11/21/17 06:27 Hct 36.2 % (32.4-45.2) 11/21/17 06:27 MCV 80.9 fl (80-96) 11/21/17 06:27 MCH 25.4 pg (25.7-33.7) L 11/21/17 06:27 MCHC 31.4 g/dl (32.0-36.0) L 11/21/17 06:27 RDW 17.4 % (11.6-15.6) H 11/21/17 06:27 Plt Count 206 K/MM3 (134-434) 11/21/17 06:27 MPV 8.8 fl (7.5-11.1) 11/21/17 06:27 Neutrophils % 71.5 % (42.8-82.8) 11/21/17 06:27 Lymphocytes % 13.5 % (8-40) D 11/21/17 06:27 Monocytes % 10.8 % (3.8-10.2) H 11/21/17 06:27 Eosinophils % 2.2 % (0-4.5) 11/21/17 06:27 Basophils % 2.0 % (0-2.0) 11/21/17 06:27 Sodium 141 mmol/L (136-145) 11/21/17 06:27 Potassium 4.2 mmol/L (3.5-5.1) 11/21/17 06:27 Chloride 102 mmol/L (98-107) 11/21/17 06:27 Carbon Dioxide 28 mmol/L (21-32) 11/21/17 06:27 Anion Gap 11 (8-16) 11/21/17 06:27 BUN 44 mg/dL (7-18) H 11/21/17 06:27 Creatinine 1.8 mg/dL (0.55-1.02) H 11/21/17 06:27 Creat Clearance w eGFR 27.14 (>60) 11/21/17 06:27 Random Glucose 107 mg/dL (74-106) H 11/21/17 06:27 Lactic Acid 1.1 mmol/L (0.0-2.0) 11/21/17 07:25 Calcium 8.6 mg/dL (8.5-10.1) 11/21/17 06:27 Total Bilirubin 1.0 mg/dL (0.2-1.0) 11/21/17 06:27 AST 19 U/L (15-37) 11/21/17 06:27 ALT 16 U/L (12-78) 11/21/17 06:27 Alkaline Phosphatase 129 U/L (45-117) H 11/21/17 06:27 LD Total 292 U/L (84-246) H 11/20/17 14:02 Creatine Kinase 56 IU/L (26-192) 11/21/17 06:27 Troponin I 0.04 ng/ml (0.00-0.05) 11/21/17 06:27 Total Protein 6.3 g/dl (6.4-8.2) L 11/21/17 06:27 Albumin 3.1 g/dl (3.4-5.0) L 11/21/17 06:27 Lipase 107 U/L (73-393) 11/20/17 14:02 Current Medications Generic Name Dose Route Start Last Admin Trade Name Freq PRN Reason Stop Dose Admin Acetaminophen 650 mg 11/21/17 11:08 11/21/17 12:10 Tylenol - PO 650 mg Q4H PRN Administration PAIN LEVEL 1-5 Allopurinol 300 mg 11/21/17 10:00 11/21/17 09:58 Zyloprim - PO 300 mg DAILY THONY Administration Atorvastatin Calcium 20 mg 11/20/17 22:00 11/20/17 21:33 Lipitor - PO 20 mg HS THONY Administration Furosemide 40 mg 11/21/17 14:00 Lasix Injection - IVPUSH BID@0600,1400 THONY Losartan Potassium 100 mg 11/21/17 10:00 11/21/17 09:58 Cozaar - PO 100 mg DAILY THONY Administration Methimazole 5 mg 11/21/17 10:00 11/21/17 09:58 Tapazole - PO 5 mg DAILY THONY Administration Metoprolol Succinate 100 mg 11/20/17 22:00 11/21/17 09:58 Toprol Xl - PO 100 mg BID THONY Administration Warfarin Sodium 6 mg 11/20/17 18:00 11/20/17 21:33 Coumadin - PO 6 mg DAILY@1800 THONY Administration Constitutional: Yes: Calm Eyes: Yes: Conjunctiva Clear HENT: Yes: Atraumatic Neck: Yes: Supple Cardiovascular: Yes: Pulse Irregular, Murmur (2/6 IAM LLSB) Respiratory: Yes: Diminished (breath sound as bases) Gastrointestinal Inspection: Yes: Distention ...Auscultate: Yes: Hypoactive Bowel Sounds ...Palpate: Yes: Soft, Other (nontender) ...Percussion: Yes: Tympanitic ...Rectal Exam: Yes: Guaiac Negative (brown formed stool. no impaction), Sphincter Tone Normal Edema: LUE: 3+ (brawny), RUE: 3+ (brawny) Neurological: Yes: Alert, Oriented Labs: CBC, BMP 11/21/17 06:27 11/21/17 06:27 INR, PTT INR 2.96 (0.82-1.09) H 11/20/17 14:02 Imaging - Results Cat Scan: Report Reviewed (Win Beatty Name: CHUCKIE GOMEZ DEPARTMENT OF RADIOLOGY Phys: Christine Jeong RESIDENT : 1935 Age: 81 Sex: F [facility] Acct: [id number] Loc: [address] Exam Date: 11/20/17 Status: [place] [address] Unit Number: [id number] EXAM#: TYPE/EXAM : RESULT: [id number] CT/ABDOMEN PELVIS CT W/O CONTR Abdomen and pelvis CT ( without contrast) Clinical information: abdominal distention Multiplanar imaging was performed. As requested no intravenous or enteric contrast was administered. No prior CT studies are available at this facility for direct comparison. A moderate amount of nonspecific free intraperitoneal fluid is seen within the abdomen and pelvis bilaterally. There is partial imaging of bilateral pleural effusions as well as cardiomegaly. Bilateral flank subcutaneous edema. No evidence of pneumoperitoneum or bowel obstruction. Moderate diffuse fatty replacement of the pancreas. Due to respiratory motion artifact the gallbladder cannot be definitely visualized (versus gallbladder contraction or prior surgery). The liver, spleen, adrenal glands and kidneys demonstrate no obvious noncontrast pathology. There is no aortic aneurysm. Extensive atherosclerotic aortic wall calcification is noted. There is no obvious lymphadenopathy. No gross small bowel pathology is seen There is no gross evidence of acute appendicitis or diverticulitis. No definite pelvic pathology is visualized aside from previously described free intraperitoneal fluid. Impression: A moderate amount of free intraperitoneal fluid is seen within the abdomen and pelvis bilaterally. Prominent bilateral flank subcutaneous edema. Bilateral pleural effusions. Cardiomegaly. Reported By: Manuel Blackwell MD 11/20/171905 Technologist: Beltran Benitez Transcribed Date/Time: 11/20/171905 Special Delivery Messenger: Manuel Blackwell Printed Date/Time: By: Signed by: Manuel Blackwell Signed on: 20-Nov-2017 19:08) Problem List - Problems (1) Ascites Assessment/Plan: I believe that Chuckie's ascites will prove to reflect congestive hepatopathy caused by right heart failure and pulmonary hypertension. I do not believe that she has significant liver disease or cirrhosis. I will order a diagnostic paracentesis to exclude malignant ascites but believe best management is cardiac output optimization and diuresis. I will screen for those liver diseases that inpatient studies permit. I discussed the situation with Chuckie and her family. Code(s): R18.8 - OTHER ASCITES Qualifiers: Ascites type: other type Qualified Code(s): R18.8 - Other ascites (2) Cor pulmonale (chronic) Code(s): I27.81 - COR PULMONALE (CHRONIC) (3) Pulmonary hypertension Code(s): I27.20 - PULMONARY HYPERTENSION, UNSPECIFIED (4) Constipation Assessment/Plan: Chuckie should ideally have a colonoscopy to exclude an obstructing neoplasm but her condition and her choice precludes this. I will give Miralax TID to resolve the component of fecal impaction that may be contributing to her bloating. Code(s): K59.00 - CONSTIPATION, UNSPECIFIED
[2017-11-21 14:37] LABS: URINE APPEARANCE SLCLOUDY; URINE BILIRUBIN NEGATIVE (NEGATIVE); URINE BLOOD NEGATIVE (NEGATIVE); URINE COLOR YELLOW; URINE GLUCOSE (UA) NEGATIVE (NEGATIVE); URINE KETONE NEGATIVE (NEGATIVE); URINE NITRITE NEGATIVE (NEGATIVE); URINE UROBILINOGEN 4.0 E.U/dl mg/dL (0.2-1.0)
[2017-11-21] MEDS: POLYETHYLENE GLYCOL 3350 119 GM BTL PO SCH ×2 (14:40→21:45)
[2017-11-21 14:45] LABS: URINE LEUK ESTERASE 1+ (NEGATIVE); URINE PROTEIN 1+ (NEGATIVE)
[2017-11-21 14:46] LABS: EPI CELLS RARE /HPF (FEW); URINE BACTERIA RARE /hpf (NONE SEEN); URINE HYALINE CAST 47 /lpf
[2017-11-21] MEDS: FUROSEMIDE 40 MG/4 ML INJECTABLE VIAL IVPUSH SCH (15:51)
--- NOTE | 2017-11-21 16:32 | EKG ---
Test Reason : Blood Pressure : / mmHG Vent. Rate : 066 BPM Atrial Rate : 375 BPM P-R Int : 000 ms QRS Dur : 096 ms QT Int : 380 ms P-R-T Axes : 000 105 -26 degrees QTc Int : 398 ms ATRIAL FIBRILLATION RIGHTWARD AXIS CANNOT RULE OUT ANTERIOR INFARCT , AGE UNDETERMINED ABNORMAL ECG WHEN COMPARED WITH ECG OF 20-NOV-2017 18:32, NORMAL SINUS RHYTHM 0CC PREMATURE VENTRICULAR COMPLEXES NO SIGNIFICANT CHANGE FROM PREVIOUS EKG Confirmed by MD PATRICIO, NILA ([id number]) on 11/21/2017 4:31:44 PM Referred By: DANYEL AGUILERA,MURIEL Confirmed By:NILA CURRY MD
[2017-11-21] MEDS ORDERED: WARFARIN SODIUM 6 MG PO SCH (18:00)
[2017-11-21] MEDS: WARFARIN NA 3 MG TABLET PO SCH (20:10)
[2017-11-21 20:33] LABS: INR 3.18 (0.82-1.09); PROTHROMBIN TIME (PATIENT) 35.9 SEC (9.98-11.88)
[2017-11-21] MEDS: ATORVASTATIN CA 20 MG TABLET (FP) PO SCH (21:45)
[2017-11-22] MEDS: POLYETHYLENE GLYCOL 3350 119 GM BTL PO SCH ×3 (05:42→22:03)
[2017-11-22] MEDS: FUROSEMIDE 40 MG/4 ML INJECTABLE VIAL IVPUSH SCH ×2 (05:42→14:30)
[2017-11-22] MEDS: METHIMAZOLE 5 MG TABLET (FP) PO SCH (10:23)
[2017-11-22] MEDS: ALLOPURINOL 300 MG TABLET (FP) PO SCH (10:23)
[2017-11-22] MEDS: LOSARTAN POTASSIUM 50 MG TABLET (FP) PO SCH (10:23)
--- NOTE | 2017-11-22 11:15 | PN ---
Progress Note, Physician Chief Complaint: AWAITING PARACENTESIS NO INR YET FOR TODAY - Current Medication List Current Medications: Active Medications Acetaminophen (Tylenol -) 650 mg PO Q4H PRN PRN Reason: PAIN LEVEL 1-5 Last Admin: 11/21/17 12:10 Dose: 650 mg Allopurinol (Zyloprim -) 300 mg PO DAILY [facility] Last Admin: 11/22/17 10:23 Dose: 300 mg Atorvastatin Calcium (Lipitor -) 20 mg PO HS [facility] Last Admin: 11/21/17 21:45 Dose: 20 mg Furosemide (Lasix Injection -) 40 mg IVPUSH BID@0600,1400 [facility] Last Admin: 11/22/17 05:42 Dose: 40 mg Losartan Potassium (Cozaar -) 100 mg PO DAILY [facility] Last Admin: 11/22/17 10:23 Dose: 100 mg Methimazole (Tapazole -) 5 mg PO DAILY [facility] Last Admin: 11/22/17 10:23 Dose: 5 mg Metoprolol Succinate (Toprol Xl -) 100 mg PO BID [facility] Last Admin: 11/22/17 10:23 Dose: 100 mg Polyethylene Glycol (Miralax (For Daily Use) -) 17 gm PO TID [facility] Last Admin: 11/22/17 05:42 Dose: 17 grams Warfarin Sodium (Coumadin -) 6 mg PO DAILY@1800 [facility] Last Admin: 11/21/17 20:10 Dose: Not Given - Objective Vital Signs: Vital Signs Temperature 97.3 F L 11/22/17 06:00 Pulse Rate 79 11/22/17 06:00 Respiratory Rate 19 11/22/17 06:00 Blood Pressure 144/76 11/22/17 06:00 O2 Sat by Pulse Oximetry (%) 97 11/21/17 21:00 Constitutional: Yes: Mild Distress Eyes: Yes: WNL HENT: Yes: WNL Neck: Yes: WNL Cardiovascular: Yes: Pulse Irregular Respiratory: Yes: WNL Gastrointestinal: Yes: Ascites, Distention Genitourinary: Yes: WNL Musculoskeletal: Yes: Other Extremities: Yes: WNL Edema: Yes Integumentary: Yes: WNL Wound/Incision: Yes: Clean/Dry Neurological: Yes: WNL ...Motor Strength: WNL Psychiatric: Yes: WNL Labs: CBC, BMP 11/21/17 06:27 11/21/17 06:27 INR, PTT INR 3.18 (0.82-1.09) H 11/21/17 19:00 Problem List - Problems (1) Abdominal distention Code(s): R14.0 - ABDOMINAL DISTENSION (GASEOUS) (2) Ascites Code(s): R18.8 - OTHER ASCITES Qualifiers: Ascites type: other type Qualified Code(s): R18.8 - Other ascites (3) CHF (congestive heart failure) Code(s): I50.9 - HEART FAILURE, UNSPECIFIED (4) Chronic venous stasis dermatitis Code(s): I87.2 - VENOUS INSUFFICIENCY (CHRONIC) (PERIPHERAL) (5) Pulmonary hypertension Code(s): I27.20 - PULMONARY HYPERTENSION, UNSPECIFIED Assessment/Plan AWAIT INR TODAY NPO INTERVENTIONAL RADIOLOGY FOR PARACENTESIS LASIX DAILY WEIGHTS ECHO CARDIO/GI F/U APPRECIATED
[2017-11-22 12:21] LABS: INR 3.17 (0.82-1.09); PROTHROMBIN TIME (PATIENT) 35.8 SEC (9.98-11.88)
--- NOTE | 2017-11-22 13:16 | PN ---
Progress Note (short form) - Note Progress Note: PULMONARY CONSULTATION DICTATED 3. IMP DYSPNEA ACUTE DIASTOLIC HF SEVERE PULMONARY HTN COR PULMONALE ASCITES SECONDARY TO ABOVE HTN HLD PVD OBESILY [place] LIKELY OSAS PLAN IV LASIX O2 DAILY WTS MONITOR LYTES,RENAL FUNCTION SLEEP SCREEN PFTS OUTPATIENT CHECK O2 SAT AT REST AND POST EXERCISE ON PRIOR TO DISCHARGE CTD W/U OUTPATIENT DR BOATENG Problem List - Problems (1) Diastolic heart failure Code(s): I50.30 - UNSPECIFIED DIASTOLIC (CONGESTIVE) HEART FAILURE (2) Abdominal distention Code(s): R14.0 - ABDOMINAL DISTENSION (GASEOUS) (3) Acute kidney injury Code(s): N17.9 - ACUTE KIDNEY FAILURE, UNSPECIFIED (4) Ascites Code(s): R18.8 - OTHER ASCITES Qualifiers: Ascites type: other type Qualified Code(s): R18.8 - Other ascites (5) CHF (congestive heart failure) Code(s): I50.9 - HEART FAILURE, UNSPECIFIED (6) Chronic venous stasis dermatitis Code(s): I87.2 - VENOUS INSUFFICIENCY (CHRONIC) (PERIPHERAL) (7) Cor pulmonale (chronic) Code(s): I27.81 - COR PULMONALE (CHRONIC) (8) Pulmonary hypertension Code(s): I27.20 - PULMONARY HYPERTENSION, UNSPECIFIED (9) Shortness of breath Code(s): R06.02 - SHORTNESS OF BREATH (10) Venous stasis ulcer Code(s): I83.009 - VARICOSE VEINS OF UNSP LOWER EXTREMITY W ULCER OF UNSP SITE; L97.909 - NON-PRS CHRONIC ULC UNSP PRT OF UNSP LOW LEG W UNSP SEVERITY
--- NOTE | 2017-11-22 14:30 | CONS ---
DATE OF CONSULTATION: 11/22/2017 REFERRING PHYSICIAN: Bg Kilgore MD The patient is a 81-year-old white female with a past medical history of chronic atrial fibrillation on Coumadin, hyperlipidemia, hypertension, chronic venous stasis, lower extremity ulcers with the history of prior bleeding varicose veins, followed by Dr. Prabhjot Long, eduard umaña, who was a non-smoker, admitted to [facility] on November 20, 2017 with the complaint of one-month history of increasing shortness of breath, lower extremity pain and abdominal distention. Patient states for the past month or so she started noticing increasing shortness of breath with minimal exertion. She also denied any complaint of chest pain, nausea, vomiting. She started noticing increasing lower extremity edema, as well as abdominal distention. Of note, is she recently returned from [place] approximately 2 weeks ago. She states that while in [place] her symptoms continued to worsen, but she did have the symptoms prior to leaving, prior to her trip. She returned home and for the past week or so she felt severe dyspnea with minimal exertion. She was also complaining of orthopnea. She denies any chest pain, nausea, vomiting, diaphoresis. She denies any hemoptysis, denies any syncope. She presented to the emergency room with above. In the ER, she had a chest CT performed, which revealed bilateral pleural effusion. She also had a CAT scan of the abdomen performed, which revealed evidence of moderate amount of ascites, as well as subcutaneous edema. She was evaluated by Cardiology who felt that the patient had acute diastolic heart failure associated with severe pulmonary hypertension. Of note, she had an echocardiogram performed, which revealed severe pulmonary hypertension with a pulmonary artery systolic pressure of 106. She had normal LV systolic function, paradoxical septal motion. RV was mildly dilated and hypokinetic. Patient was transferred to the Medical Telemetry Unit and started on Lasix. She was evaluated by GI who felt that ascites was most likely secondary to severe pulmonary hypertension and congestive heart failure. As stated before, she is a nonsmoker. She denies any history of occupational exposure to chemicals of fumes. She was born in [place], moved to the [place] many years ago. She denies any history of deep vein thrombosis or pulmonary emboli in the past. She denies any excessive daytime sleepiness or excessive snoring. PAST MEDICAL HISTORY: Again includes congestive heart failure, atrial fibrillation, hyperlipidemia, hypertension, chronic venous stasis, lower extremity ulcers, chronic constipation. REVIEW OF SYSTEMS: Positive orthopnea. Positive dyspnea. Positive cough non-productive with no fever, no chills, no chest pain, no palpitations. Positive increased abdominal girth. Positive lower extremity edema. MEDICATIONS: Medications prior to admission include: 1. Allopurinol 300 mg daily. 2. Coumadin 6 mg daily. 3. Pravachol. 4. Toprol. 5. Methimazole. 6. Losartan. 7. Lasix. 8. Vitamin D3. 9. Aspirin. 10. Acetaminophen. Current medications include: 1. Tylenol. 2. Cozaar. 3. Coumadin. 4. Zyloprim. 5. Tapazole. 6. Toprol-XL. 7. MiraLAX. 8. Lipitor. 9. Lasix. PHYSICAL EXAMINATION: General: On physical examination, is an elderly white female well-developed, well-nourished awake, alert, in no acute distress. Vital signs: She is 5 foot 5 inches tall, BMI of 36. She is afebrile. Blood pressure is 127/53. Respiratory rate is 20. O2 saturation is 98% on 3 L. HEENT: Normocephalic, atraumatic. Neck: Supple. Heart: Is irregularly irregular. Normal S1, S2. Chest: Bilateral crackles one-third up. Abdomen: Soft, ascites. Extremities: Chronic venous stasis changes bilaterally with some edema. LABORATORY STUDIES: WBC is 5.5, hemoglobin 11.4, hematocrit 36.2 with a platelet count of 206,000. INR is 3.17. Venous blood gas 7.37, pCO2 of 45, pO2 of 42. Chemistry: BUN is 44, creatinine 1.8. CRP is 0.8. Chest CT reveals bilateral cardiomegaly with bilateral pleural effusions with cardiomegaly, mild interstitial pulmonary vascular congestion. CT of the abdomen as noted earlier. IMPRESSION: 1. Dyspnea, secondary to acute diastolic heart failure. 2. Severe pulmonary hypertension. 3. Atrial fibrillation. 4. Chronic atrial fibrillation on AC. 5. Hypertension. 6. Hyperlipidemia. 7. Obesity. 8. Chronic venous stasis. 9. Peripheral arterial disease. PLAN: Continue IV Lasix. Supplement O2. Daily weights. Monitor electrolytes. Obtain sleep screen, as well as PFT as outpatient. Consider workup for possible autoimmune disease as the cause of her pulmonary hypertension. Also cannot exclude possible chronic thromboembolic pulmonary emboli, although patient has been maintained on anticoagulation for many years. Thank you. Will follow closely with you. ORTIZ BOATENG M.D. [id number] MTDD
--- NOTE | 2017-11-22 15:13 | PN ---
Progress Note, Physician Chief Complaint: Patient is sitting in chair and feels better. She has no SOB at rest and denies palpitation and chest pain. Tele shows atrial fibrillation with episodes of mild slow VR. No pauses longer than 3 seconds. History of Present Illness: 81 year-old woman with a PMHx of atrial fibrillation on Warfarin, HTN, HLD, venous stasis with ulcer and prior bleeding varicose vein (seen by Dr. Prabhjot Long), chronic constipation, admitted 11/20/2017 with progressive SOB, leg pain and abdominal distention. She was found to have acute diastolic CHF, severe pulmonary hypertension and cor pulmonale. She has been treated with IV Lasix. ECG 11/20/2017 showed atrial fibrillation with controlled VR at 74 BPM with IVCD and inferior and lateral ST and T abnormalities. CT chest and abdomen 11/20/2017 revealed cardiomegaly, CHF, pleural effusion and free fluid in the abdomen. Echo 11/21/2017: LV is "D" shape with paradoxical septal motion and normal LV systolic function. RV is dilated and hypokinetic. Severe LA and RA dilatation. Severe pulmonary hypertension. PASP = 106 mmHg. - Current Medication List Current Medications: Active Medications Acetaminophen (Tylenol -) 650 mg PO Q4H PRN PRN Reason: PAIN LEVEL 1-5 Last Admin: 11/21/17 12:10 Dose: 650 mg Allopurinol (Zyloprim -) 300 mg PO DAILY [facility] Last Admin: 11/22/17 10:23 Dose: 300 mg Atorvastatin Calcium (Lipitor -) 20 mg PO HS [facility] Last Admin: 11/21/17 21:45 Dose: 20 mg Furosemide (Lasix Injection -) 40 mg IVPUSH BID@0600,1400 [facility] Last Admin: 11/22/17 05:42 Dose: 40 mg Losartan Potassium (Cozaar -) 100 mg PO DAILY [facility] Last Admin: 11/22/17 10:23 Dose: 100 mg Methimazole (Tapazole -) 5 mg PO DAILY [facility] Last Admin: 11/22/17 10:23 Dose: 5 mg Metoprolol Succinate (Toprol Xl -) 100 mg PO BID [facility] Last Admin: 11/22/17 10:23 Dose: 100 mg Polyethylene Glycol (Miralax (For Daily Use) -) 17 gm PO TID [facility] Last Admin: 11/22/17 05:42 Dose: 17 grams Warfarin Sodium (Coumadin -) 6 mg PO DAILY@1800 [facility] Last Admin: 11/21/17 20:10 Dose: Not Given - Objective Vital Signs: Vital Signs Temperature 97.4 F L 11/22/17 14:00 Pulse Rate 68 11/22/17 14:00 Respiratory Rate 20 11/22/17 10:00 Blood Pressure 127/66 11/22/17 14:00 O2 Sat by Pulse Oximetry (%) 98 11/22/17 09:00 General: Well developed. Obese. No acute distress. Head: Normocephalic. Atraumatic, Eyes: PERRLA, EOMI. Sclerae anicteric. Conjunctivae clear. Neck: Supple. (+) JVD. No bruits. Heart: Normal S1, S2: Irregularly regular rhythm and rate. No murmur. No gallop or rub. Lungs: Symmetrical limited air entry. Bibasilar crackle. No wheezing or rhonchi. Abdomen: Obese. Distended. Soft. Bowel sound positive. Non tender. No masses. Extremities: Trace edema. Venous stasis with eythema. . Neuro: Intact, no focal findings. AAO X3. Labs: CBC, BMP 11/21/17 06:27 11/21/17 06:27 INR, PTT INR 3.17 (0.82-1.09) H 11/22/17 11:45 Assessment/Plan 81 year-old woman with a PMHx of atrial fibrillation on Warfarin, HTN, HLD, venous stasis with ulcer and prior bleeding varicose vein (seen by Dr. Prabhjot Long), chronic constipation, admitted 11/20/2017 with progressive SOB, leg pain and abdominal distention. She was found to have acute diastolic CHF, severe pulmonary hypertension and cor pulmonale. She has been treated with IV Lasix. ECG 11/20/2017 showed atrial fibrillation with controlled VR at 74 BPM with IVCD and inferior and lateral ST and T abnormalities. CT chest and abdomen 11/20/2017 revealed cardiomegaly, CHF, pleural effusion and free fluid in the abdomen. Echo 11/21/2017: LV is "D" shape with paradoxical septal motion and normal LV systolic function. RV is dilated and hypokinetic. Severe LA and RA dilatation. Severe pulmonary hypertension. PASP = 106 mmHg. 1) CHF: Acute diastolic CHF, right heart failure and severe pulmonary hypertension. Continue IV Lasix 40 mg q12h to keep Os > Is. Monitor renal function and electrolytes. Daily weight. Pulmonary evaluation appreciated. 2) Chronic atrial fibrillation: Ventricular rate is well controlled. Continue metoprolol Continue warfarin to keep INR 2-3. 3) HTN: BP controlled. Norvasc and hydralazine were discontinued. Continue Metoprolol and losartan.
[2017-11-22] MEDS: ACETAMINOPHEN 325 MG TABLET (FP) PO PRN (16:52)
--- NOTE | 2017-11-22 17:30 | PN ---
GI Progress Note Subjective: Gi NOte: No weight loss yet. Paracentesis has to be deferred until the coumadin wears off. Liver studies pending. Had a BM with Miralax. - Objective Vital Signs: Vital Signs Temperature 97.4 F L 11/22/17 14:00 Pulse Rate 68 11/22/17 14:00 Respiratory Rate 20 11/22/17 10:00 Blood Pressure 127/66 11/22/17 14:00 O2 Sat by Pulse Oximetry (%) 98 11/22/17 09:00 Laboratory Tests 11/20/17 11/21/17 11/22/17 14:02 06:27 06:05 PT with INR 33.40 H INR 2.96 H BUN 44 H Creatinine 1.8 H C-Reactive Protein 0.8 H Hepatitis A Ab Total Hep Bs Antigen Hep Bs Antibody Hep B Core Total Ab Hep C Ab Diagnostic 11/22/17 06:05 PT with INR INR BUN Creatinine C-Reactive Protein Hepatitis A Ab Total Pending Hep Bs Antigen Pending Hep Bs Antibody Pending Hep B Core Total Ab Pending Hep C Ab Diagnostic Pending Constitutional: No Distress Gastrointestinal Inspection: Yes: Distention ...Auscultate: Yes: Normoactive Bowel Sounds ...Palpate: Yes: Soft, Other (nontender) Labs: CBC, BMP 11/21/17 06:27 11/21/17 06:27 INR, PTT INR 3.17 (0.82-1.09) H 11/22/17 11:45 Problem List - Problems (1) Ascites Assessment/Plan: Echocardiogram reveals dilated RV supporting congestive hepatopathy. paracentesis deferred until INR corrects. Liver studies pending including Fibrosure. Continue diuresis. Code(s): R18.8 - OTHER ASCITES Qualifiers: Ascites type: other type Qualified Code(s): R18.8 - Other ascites (2) Cor pulmonale (chronic) Code(s): I27.81 - COR PULMONALE (CHRONIC) (3) Pulmonary hypertension Code(s): I27.20 - PULMONARY HYPERTENSION, UNSPECIFIED (4) Constipation Code(s): K59.00 - CONSTIPATION, UNSPECIFIED
[2017-11-22] MEDS: WARFARIN NA 3 MG TABLET PO SCH (17:35)
[2017-11-22] MEDS ORDERED: PT OWN MED DRAWER 7, Y5N ONE (18:37)
[2017-11-22] MEDS: ATORVASTATIN CA 20 MG TABLET (FP) PO SCH (22:03)
[2017-11-23 07:17] LABS: INR 2.54 (0.82-1.09); PROTHROMBIN TIME (PATIENT) 28.7 SEC (9.98-11.88)
[2017-11-23] MEDS: FUROSEMIDE 40 MG/4 ML INJECTABLE VIAL IVPUSH SCH ×2 (07:36→13:53)
[2017-11-23] MEDS: POLYETHYLENE GLYCOL 3350 119 GM BTL PO SCH ×3 (07:36→21:43)
[2017-11-23 08:12] LABS: SERUM IRON SATURATION 9 % (15-55); TOTAL IRON BINDING CAPACITY 396 ug/dL (250-450); UIBC 359 ug/dL (118-369)
[2017-11-23] MEDS: LOSARTAN POTASSIUM 50 MG TABLET (FP) PO SCH (10:22)
[2017-11-23] MEDS: ALLOPURINOL 300 MG TABLET (FP) PO SCH (10:22)
[2017-11-23] MEDS: METHIMAZOLE 5 MG TABLET (FP) PO SCH (10:22)
[2017-11-23] MEDS: ACETAMINOPHEN 325 MG TABLET (FP) PO PRN ×2 (10:23→18:21)
--- NOTE | 2017-11-23 10:53 | PN ---
Progress Note, Physician Chief Complaint: INR STILL ELEVATED PARACENTESIS POSTPONED TIL TOMORROW MILD DISTRESS SITTING IN CHAIR - Current Medication List Current Medications: Active Medications Acetaminophen (Tylenol -) 650 mg PO Q4H PRN PRN Reason: PAIN LEVEL 1-5 Last Admin: 11/23/17 10:23 Dose: 650 mg Allopurinol (Zyloprim -) 300 mg PO DAILY [facility] Last Admin: 11/23/17 10:22 Dose: 300 mg Atorvastatin Calcium (Lipitor -) 20 mg PO HS [facility] Last Admin: 11/22/17 22:03 Dose: 20 mg Furosemide (Lasix Injection -) 40 mg IVPUSH BID@0600,1400 [facility] Last Admin: 11/23/17 07:36 Dose: 40 mg Losartan Potassium (Cozaar -) 100 mg PO DAILY [facility] Last Admin: 11/23/17 10:22 Dose: 100 mg Methimazole (Tapazole -) 5 mg PO DAILY [facility] Last Admin: 11/23/17 10:22 Dose: 5 mg Metoprolol Succinate (Toprol Xl -) 100 mg PO BID [facility] Last Admin: 11/23/17 10:22 Dose: 100 mg Phytonadione (Aqua Mephy[place] Injection -) 2.5 mg SQ ONCE ONE Stop: 11/23/17 10:51 Polyethylene Glycol (Miralax (For Daily Use) -) 17 gm PO TID [facility] Last Admin: 11/23/17 07:36 Dose: 17 grams - Objective Vital Signs: Vital Signs Temperature 97.4 F L 11/23/17 02:03 Pulse Rate 69 11/23/17 06:00 Respiratory Rate 20 11/23/17 06:00 Blood Pressure 132/81 11/23/17 06:00 O2 Sat by Pulse Oximetry (%) 98 11/22/17 21:00 Constitutional: Yes: Mild Distress HENT: Yes: WNL Neck: Yes: WNL Cardiovascular: Yes: Pulse Irregular Respiratory: Yes: On Nasal O2 Gastrointestinal: Yes: Ascites, Distention Genitourinary: Yes: WNL Musculoskeletal: Yes: Muscle Weakness Extremities: Yes: WNL Edema: No Peripheral Pulses WNL: Yes Integumentary: Yes: Venous Stasis Changes Wound/Incision: Yes: Clean/Dry Neurological: Yes: WNL ...Motor Strength: WNL Psychiatric: Yes: WNL Labs: CBC, BMP 11/21/17 06:27 11/21/17 06:27 INR, PTT INR 2.54 (0.82-1.09) H 11/23/17 06:15 Problem List - Problems (1) Abdominal distention Code(s): R14.0 - ABDOMINAL DISTENSION (GASEOUS) (2) Ascites Code(s): R18.8 - OTHER ASCITES Qualifiers: Ascites type: other type Qualified Code(s): R18.8 - Other ascites (3) CHF (congestive heart failure) Code(s): I50.9 - HEART FAILURE, UNSPECIFIED (4) Chronic venous stasis dermatitis Code(s): I87.2 - VENOUS INSUFFICIENCY (CHRONIC) (PERIPHERAL) (5) Pulmonary hypertension Code(s): I27.20 - PULMONARY HYPERTENSION, UNSPECIFIED Assessment/Plan GIVE VITAMIN K 2.5MG NOW SQ AWAIT FROM IR DR SAUCEDO IF HE WOULD LIKE FFP TRANSFUSION?? WILL NEED TO RESTART COUMADIN AFTER PARACENTESIS AND BRIDGE BACK TO THERAPEUTIC INR GI F/U APPRECIATED
[2017-11-23] MEDS ORDERED: PHYTONADIONE 10 MG/1 ML AMP SQ ONE (11:30)
--- NOTE | 2017-11-23 14:24 | CONSULT ---
Consult - text type - Consultation Consultation Note: Renal consult for SLOANE This is a 81 year old woman with PMhx of Afib on Coumadin, HTN, Hyperlipidemia, Venous stasis, ? CKD who presented with complaints of worsening SOB, and Abd distension and admitted for Diastolic HF, Abd ascities and found to have Cr of 1.8. Pt last outpatient labs done 11/14 showed Cr of 1.21 and a bland UA. Pt is on a ARB but denies any NSAID use or contrast exposure. Denies any history of stones or flank pain. No recent Abx use. No skin rash. Pt is on higher dose of diuretics becasue of ascities. No N/V/D. No CP, + SOB and + MERINO. No CULVER, confusion or lethargy. PMhx: as above Allergies: NKDA Family hx: NC Social hx: No T/A/D ROS: as per HPI, all other pertinent ros negative Home Medications Medication Instructions Recorded Allopurinol 300 mg PO DAILY 03/12/17 Amlodipine Besylate [Norvasc -] 5 mg PO DAILY 03/12/17 Aspirin [Ecotrin] 81 mg PO DAILY 03/12/17 Cholecalciferol (Vitamin D3) 2,000 unit PO DAILY 03/12/17 [Vitamin D3] Furosemide [Lasix] 40 mg PO BID 03/12/17 Losartan Potassium 100 mg PO DAILY 03/12/17 Methimazole 5 mg PO DAILY 03/12/17 Metoprolol Succinate [Toprol Xl] 100 mg PO BID 03/12/17 Pravastatin Sodium [Pravachol (Nf)] 80 mg PO HS 03/12/17 Warfarin Sodium [Coumadin] 6 mg PO HS 03/12/17 hydrALAZINE HCL [Apresoline -] 100 mg PO BID 03/12/17 Acetaminophen 325 mg PO Q4H PRN 11/20/17 Polyethylene Glycol 3350 [Miralax 17 gm PO DAILY PRN 11/20/17 (For Daily Use) -] Vital Signs Temperature 97.4 F L 11/23/17 02:03 Pulse Rate 69 11/23/17 06:00 Respiratory Rate 20 11/23/17 06:00 Blood Pressure 132/81 11/23/17 06:00 O2 Sat by Pulse Oximetry (%) 94 L 11/23/17 09:00 Intake & Output 03/12/18 11/21/17 11/22/17 11/23/17 23:59 23:59 23:59 23:59 Intake Total 1010 810 200 Output Total 250 Balance 760 810 200 Weight 97.522 kg 98.339 kg 98.702 kg NAD awake and alert RRR, no M/R Dec BS at lung bases, no overt rales, wheeze Soft NT/ND No LE edema, no clubbing or cyanosis No bladder distension CBC, BMP 11/21/17 06:27 11/21/17 06:27 Laboratory Tests 11/21/17 11/21/17 11/21/17 06:27 06:27 07:25 MCV 80.9 Lactic Acid 1.1 Calcium 8.6 Iron TIBC Iron Saturation Albumin 3.1 L Urine Protein Urine Urobilinogen Ur Leukocyte Esterase Urine WBC (Auto) Urine RBC (Auto) 11/21/17 11/22/17 13:45 06:05 MCV Lactic Acid Calcium Iron 37 TIBC 396 Iron Saturation 9 L Albumin Urine Protein 1+ H Urine Urobilinogen 4.0 e.u/dl H Ur Leukocyte Esterase 1+ H Urine WBC (Auto) 16 Urine RBC (Auto) 2 Current Medications Acetaminophen (Tylenol -) 650 mg PO Q4H PRN PRN Reason: PAIN LEVEL 1-5 Last Admin: 11/23/17 10:23 Dose: 650 mg Allopurinol (Zyloprim -) 300 mg PO DAILY [facility] Last Admin: 11/23/17 10:22 Dose: 300 mg Atorvastatin Calcium (Lipitor -) 20 mg PO HS [facility] Last Admin: 11/22/17 22:03 Dose: 20 mg Furosemide (Lasix Injection -) 40 mg IVPUSH BID@0600,1400 [facility] Last Admin: 11/23/17 13:53 Dose: 40 mg Losartan Potassium (Cozaar -) 100 mg PO DAILY [facility] Last Admin: 11/23/17 10:22 Dose: 100 mg Methimazole (Tapazole -) 5 mg PO DAILY [facility] Last Admin: 11/23/17 10:22 Dose: 5 mg Metoprolol Succinate (Toprol Xl -) 100 mg PO BID [facility] Last Admin: 11/23/17 10:22 Dose: 100 mg Polyethylene Glycol (Miralax (For Daily Use) -) 17 gm PO TID [facility] Last Admin: 11/23/17 13:53 Dose: 17 grams 81 year old woman with PMhx of Afib on Coumadin, HTN, Hyperlipidemia, Venous stasis, ? CKD who presented with complaints of worsening SOB, and Abd distension and admitted for Diastolic HF, Abd ascities and found to have Cr of 1.8. #Acute Renal Failure with possible history of CKD in setting of HF/Asciteis Etiology could be renal hypoprofusion in setting of HF vs. HRS vs. normotensive ATN in setting of ARB D/C Losartan for now Continue IV Lasix for management of volume overload Check Urine stuides for FeUrea CT of the Abd showed normal kidneys w/o obstruction Trend BUN/Cr and electrolytes no indication for CELL INSPECTOR keep MAP > 65 avoid nephrotoxins and IV contrast #CHF/Abd Ascities continue Lasix check Hepatitis panel for paracentesis when INR lower #Hypertension D/c Losartan goal BP < 150/90 Thank you Will follow Denis Boogie DO
--- NOTE | 2017-11-23 14:40 | PN ---
Progress Note (short form) - Note Progress Note: Still mildly tachypneic at rest. No CP . INR remains elevated so paracentesis was held. Intake & Output 11/20/17 11/21/17 11/22/17 11/23/17 23:59 23:59 23:59 23:59 Intake Total 1010 810 200 Output Total 250 Balance 760 810 200 Weight 215 lb 216 lb 12.8 oz 217 lb 9.6 oz Last Vital Signs Temp Pulse Resp BP Pulse Ox 97.4 F L 69 20 132/81 94 L 11/23/17 02:03 11/23/17 06:00 11/23/17 06:00 11/23/17 06:00 11/23/17 09:00 Active Medications Acetaminophen (Tylenol -) 650 mg PO Q4H PRN PRN Reason: PAIN LEVEL 1-5 Last Admin: 11/23/17 10:23 Dose: 650 mg Allopurinol (Zyloprim -) 300 mg PO DAILY [facility] Last Admin: 11/23/17 10:22 Dose: 300 mg Atorvastatin Calcium (Lipitor -) 20 mg PO [facility] Last Admin: 11/22/17 22:03 Dose: 20 mg Furosemide (Lasix Injection -) 40 mg IVPUSH BID@0600,1400 [facility] Last Admin: 11/23/17 13:53 Dose: 40 mg Methimazole (Tapazole -) 5 mg PO DAILY [facility] Last Admin: 11/23/17 10:22 Dose: 5 mg Metoprolol Succinate (Toprol Xl -) 100 mg PO BID [facility] Last Admin: 11/23/17 10:22 Dose: 100 mg Polyethylene Glycol (Miralax (For Daily Use) -) 17 gm PO TID [facility] Last Admin: 11/23/17 13:53 Dose: 17 grams Constitutional: Yes: Mildly tachypneic HENT: Yes: WNL Neck: Yes: WNL Cardiovascular: Yes: Pulse Irregular Respiratory: Yes: On Nasal O2 Gastrointestinal: Yes: Ascites, Distention Genitourinary: Yes: WNL Musculoskeletal: Yes: Muscle Weakness Extremities: Yes: WNL Edema: No Peripheral Pulses WNL: Yes Integumentary: Yes: Venous Stasis Changes Wound/Incision: Yes: Clean/Dry Neurological: Yes: WNL ...Motor Strength: WNL Psychiatric: Yes: WNL Laboratory Results - last 24 hr 11/22/17 11/23/17 06:05 06:15 PT with INR 28.70 H INR 2.54 H Iron 37 TIBC 396 Iron Saturation 9 L CA 125 Antigen 710.2 H Hep C Ab Diagnostic <0.1 Problem List - Problems (1) Diastolic heart failure Code(s): I50.30 - UNSPECIFIED DIASTOLIC (CONGESTIVE) HEART FAILURE (2) Abdominal distention Code(s): R14.0 - ABDOMINAL DISTENSION (GASEOUS) (3) Acute kidney injury Code(s): N17.9 - ACUTE KIDNEY FAILURE, UNSPECIFIED (4) Ascites Code(s): R18.8 - OTHER ASCITES Qualifiers: Ascites type: other type Qualified Code(s): R18.8 - Other ascites (5) CHF (congestive heart failure) Code(s): I50.9 - HEART FAILURE, UNSPECIFIED (6) Chronic venous stasis dermatitis Code(s): I87.2 - VENOUS INSUFFICIENCY (CHRONIC) (PERIPHERAL) (7) Cor pulmonale (chronic) Code(s): I27.81 - COR PULMONALE (CHRONIC) (8) Pulmonary hypertension Code(s): I27.20 - PULMONARY HYPERTENSION, UNSPECIFIED (9) Shortness of breath Code(s): R06.02 - SHORTNESS OF BREATH (10) Venous stasis ulcer Code(s): I83.009 - VARICOSE VEINS OF UNSP LOWER EXTREMITY W ULCER OF UNSP SITE; L97.909 - NON-PRS CHRONIC ULC UNSP PRT OF UNSP LOW LEG W UNSP SEVERITY IMP DYSPNEA ACUTE DIASTOLIC HF SEVERE PULMONARY HTN COR PULMONALE ASCITES SECONDARY TO ABOVE HTN HLD PVD OBESILY SLOANE PROBABLE OSAS PLAN IV LASIX O2 DAILY WTS MONITOR LYTES,RENAL FUNCTION SLEEP SCREEN PFTS OUTPATIENT CHECK O2 SAT AT REST AND POST EXERCISE ON PRIOR TO DISCHARGE CTD W/U OUTPATIENT FOR PARACENTESIS WHEN COAGULOPATHY CORRECTED DR WEIR
--- NOTE | 2017-11-23 15:29 | PN ---
Progress Note, Physician Chief Complaint: Patient feels weak. She has no SOB at rest and denies palpitation and chest pain. Tele shows atrial fibrillation with episodes of mild slow VR. No pauses longer than 3 seconds. History of Present Illness: 81 year-old woman with a PMHx of atrial fibrillation on Warfarin, HTN, HLD, venous stasis with ulcer and prior bleeding varicose vein (seen by Dr. Prabhjot Long), chronic constipation, admitted 11/20/2017 with progressive SOB, leg pain and abdominal distention. She was found to have acute diastolic CHF, severe pulmonary hypertension and cor pulmonale. She has been treated with IV Lasix. ECG 11/20/2017 showed atrial fibrillation with controlled VR at 74 BPM with IVCD and inferior and lateral ST and T abnormalities. CT chest and abdomen 11/20/2017 revealed cardiomegaly, CHF, pleural effusion and free fluid in the abdomen. Echo 11/21/2017: LV is "D" shape with paradoxical septal motion and normal LV systolic function. RV is dilated and hypokinetic. Severe LA and RA dilatation. Severe pulmonary hypertension. PASP = 106 mmHg. - Current Medication List Current Medications: Active Medications Acetaminophen (Tylenol -) 650 mg PO Q4H PRN PRN Reason: PAIN LEVEL 1-5 Last Admin: 11/23/17 10:23 Dose: 650 mg Allopurinol (Zyloprim -) 300 mg PO DAILY [facility] Last Admin: 11/23/17 10:22 Dose: 300 mg Atorvastatin Calcium (Lipitor -) 20 mg PO HS [facility] Last Admin: 11/22/17 22:03 Dose: 20 mg Furosemide (Lasix Injection -) 40 mg IVPUSH BID@0600,1400 [facility] Last Admin: 11/23/17 13:53 Dose: 40 mg Methimazole (Tapazole -) 5 mg PO DAILY [facility] Last Admin: 11/23/17 10:22 Dose: 5 mg Metoprolol Succinate (Toprol Xl -) 100 mg PO BID [facility] Last Admin: 11/23/17 10:22 Dose: 100 mg Polyethylene Glycol (Miralax (For Daily Use) -) 17 gm PO TID [facility] Last Admin: 11/23/17 13:53 Dose: 17 grams - Objective Vital Signs: Vital Signs Temperature 97.4 F L 11/23/17 02:03 Pulse Rate 69 11/23/17 06:00 Respiratory Rate 20 11/23/17 06:00 Blood Pressure 132/81 11/23/17 06:00 O2 Sat by Pulse Oximetry (%) 94 L 11/23/17 09:00 General: Well developed. Obese. No acute distress. Head: Normocephalic. Atraumatic, Eyes: PERRLA, EOMI. Sclerae anicteric. Conjunctivae clear. Neck: Supple. (+) JVD. No bruits. Heart: Normal S1, S2: Irregularly regular rhythm and rate. No murmur. No gallop or rub. Lungs: Symmetrical limited air entry. Bibasilar crackle. No wheezing or rhonchi. Abdomen: Obese. Distended. Soft. Bowel sound positive. Non tender. No masses. Extremities: Trace edema. Venous stasis with eythema. . Neuro: Intact, no focal findings. AAO X3 Labs: CBC, BMP 11/21/17 06:27 11/21/17 06:27 INR, PTT INR 2.54 (0.82-1.09) H 11/23/17 06:15 Assessment/Plan 81 year-old woman with a PMHx of atrial fibrillation on Warfarin, HTN, HLD, venous stasis with ulcer and prior bleeding varicose vein (seen by Dr. Prabhjot Long), chronic constipation, admitted 11/20/2017 with progressive SOB, leg pain and abdominal distention. She was found to have acute diastolic CHF, severe pulmonary hypertension and cor pulmonale. She has been treated with IV Lasix. ECG 11/20/2017 showed atrial fibrillation with controlled VR at 74 BPM with IVCD and inferior and lateral ST and T abnormalities. CT chest and abdomen 11/20/2017 revealed cardiomegaly, CHF, pleural effusion and free fluid in the abdomen. Echo 11/21/2017: LV is "D" shape with paradoxical septal motion and normal LV systolic function. RV is dilated and hypokinetic. Severe LA and RA dilatation. Severe pulmonary hypertension. PASP = 106 mmHg. 1) CHF: Acute diastolic CHF, right heart failure and severe pulmonary hypertension. Increase IV Lasix to 80 mg q12h to keep Os > Is. Monitor renal function and electrolytes. Daily weight. Pulmonary evaluation appreciated. 2) Chronic atrial fibrillation: Ventricular rate is well controlled. Continue metoprolol Continue warfarin to keep INR 2-3. 3) HTN: BP controlled. Losartan, Norvasc and hydralazine were discontinued. Continue Metoprolol.
[2017-11-23] MEDS: ATORVASTATIN CA 20 MG TABLET (FP) PO SCH (21:46)
[2017-11-24] MEDS: POLYETHYLENE GLYCOL 3350 119 GM BTL PO SCH ×3 (05:59→21:39)
[2017-11-24] MEDS: FUROSEMIDE 40 MG/4 ML INJECTABLE VIAL IVPUSH SCH ×2 (05:59→15:08)
[2017-11-24 06:06] LABS: HBSAG SCREEN Negative (Negative); HEP A AB, IGM Negative (Negative); HEP B CORE AB, TOT Negative (Negative)
[2017-11-24 07:30] LABS: BASO % 2.4 % (0-2.0); EOS % 4.5 % (0-4.5); HEMATOCRIT 36.3 % (32.4-45.2); HEMOGLOBIN 11.4 GM/dL (10.7-15.3); LYMPH % 16.6 % (8-40); MCH 25.5 pg (25.7-33.7); MCHC 31.3 g/dl (32.0-36.0); MEAN CELL VOLUME 81.7 fl (80-96); MEAN PLT VOLUME 8.7 fl (7.5-11.1); MONO % 11.3 % (3.8-10.2); NEUT % 65.2 % (42.8-82.8); PLATELET COUNT 186 K/MM3 (134-434); RBC 4.45 M/mm3 (3.60-5.2); RDW 17.4 % (11.6-15.6); WHITE BLOOD COUNT 4.8 K/mm3 (4.0-10.0)
[2017-11-24 07:55] LABS: INR 1.72 (0.82-1.09); PROTHROMBIN TIME (PATIENT) 19.4 SEC (9.98-11.88)
[2017-11-24 08:25] LABS: ANION GAP 11 (8-16); BLOOD UREA NITROGEN 50 mg/dL (7-18); CALCIUM 8.5 mg/dL (8.5-10.1); CHLORIDE 103 mmol/L (98-107); CO2 28 mmol/L (21-32); GLUCOSE,RANDOM 102 mg/dL (74-106); MAGNESIUM 2.7 mg/dL (1.8-2.4); POTASSIUM 4.9 mmol/L (3.5-5.1); SODIUM 142 mmol/L (136-145)
[2017-11-24 08:29] LABS: ALK PHOS 119 U/L (45-117); CREATININE 1.8 mg/dL (0.55-1.02); PHOSPHOROUS 4.5 mg/dL (2.5-4.9); SGOT/AST 16 U/L (15-37); SGPT/ALT 19 U/L (12-78); TOT PROT 6.2 g/dl (6.4-8.2)
[2017-11-24] MEDS ORDERED: PT OWN MED DRAWER 7, Y5N ONE (09:40)
[2017-11-24] MEDS: METHIMAZOLE 5 MG TABLET (FP) PO SCH (09:43)
[2017-11-24] MEDS: ALLOPURINOL 300 MG TABLET (FP) PO SCH (09:43)
--- NOTE | 2017-11-24 12:07 | PN ---
Progress Note, Physician History of Present Illness: PULMONARY ALERT COMFORTABLE LESS DYSPNEIC S/P PARACENTESIS. SLEEP SCREEN AHI 57.2 C/W SEVERE SLEEP APNEA - Current Medication List Current Medications: Active Medications Acetaminophen (Tylenol -) 650 mg PO Q4H PRN PRN Reason: PAIN LEVEL 1-5 Last Admin: 11/23/17 18:21 Dose: 650 mg Allopurinol (Zyloprim -) 300 mg PO DAILY [facility] Last Admin: 11/24/17 09:43 Dose: 300 mg Atorvastatin Calcium (Lipitor -) 20 mg PO HS [facility] Last Admin: 11/23/17 21:46 Dose: 20 mg Furosemide (Lasix Injection -) 80 mg IVPUSH BID@0600,1400 [facility] Last Admin: 11/24/17 05:59 Dose: 80 mg Methimazole (Tapazole -) 5 mg PO DAILY [facility] Last Admin: 11/24/17 09:43 Dose: 5 mg Metoprolol Succinate (Toprol Xl -) 100 mg PO BID [facility] Last Admin: 11/24/17 09:43 Dose: 100 mg Polyethylene Glycol (Miralax (For Daily Use) -) 17 gm PO TID [facility] Last Admin: 11/24/17 05:59 Dose: 17 grams - Objective Vital Signs: Vital Signs Temperature 97.7 F 11/24/17 09:38 Pulse Rate 72 11/24/17 09:38 Respiratory Rate 20 11/24/17 09:38 Blood Pressure 118/56 11/24/17 09:38 O2 Sat by Pulse Oximetry (%) 100 11/24/17 09:00 Constitutional: Yes: Well Nourished, Calm Eyes: Yes: WNL HENT: Yes: WNL Neck: Yes: WNL Cardiovascular: Yes: Regular Rate and Rhythm, S1, S2 Respiratory: Yes: Rales (BILATERAL CRCKLES 1/3 UP) Gastrointestinal: Yes: Normal Bowel Sounds, Soft Extremities: Yes: WNL Edema: Yes Labs: CBC, BMP 11/24/17 07:05 11/24/17 07:05 INR, PTT INR 1.72 (0.82-1.09) H D 11/24/17 07:05 Problem List - Problems (1) Diastolic heart failure Code(s): I50.30 - UNSPECIFIED DIASTOLIC (CONGESTIVE) HEART FAILURE (2) Abdominal distention Code(s): R14.0 - ABDOMINAL DISTENSION (GASEOUS) (3) Acute kidney injury Code(s): N17.9 - ACUTE KIDNEY FAILURE, UNSPECIFIED (4) Ascites Code(s): R18.8 - OTHER ASCITES Qualifiers: Ascites type: other type Qualified Code(s): R18.8 - Other ascites (5) CHF (congestive heart failure) Code(s): I50.9 - HEART FAILURE, UNSPECIFIED (6) Chronic venous stasis dermatitis Code(s): I87.2 - VENOUS INSUFFICIENCY (CHRONIC) (PERIPHERAL) (7) Cor pulmonale (chronic) Code(s): I27.81 - COR PULMONALE (CHRONIC) (8) Pulmonary hypertension Code(s): I27.20 - PULMONARY HYPERTENSION, UNSPECIFIED (9) Shortness of breath Code(s): R06.02 - SHORTNESS OF BREATH (10) Venous stasis ulcer Code(s): I83.009 - VARICOSE VEINS OF UNSP LOWER EXTREMITY W ULCER OF UNSP SITE; L97.909 - NON-PRS CHRONIC ULC UNSP PRT OF UNSP LOW LEG W UNSP SEVERITY Assessment/Plan IMP DYSPNEA ACUTE DIASTOLIC HF SEVERE PULMONARY HTN COR PULMONALE ASCITES SECONDARY TO ABOVE HTN HLD PVD OBESILY SLOANE SEVERE SLEEP APNEA AHI 57.2 PLAN IV LASIX O2 DAILY WTS MONITOR LYTES,RENAL FUNCTION FORMAL SLEEP STUDIES OUTPATIENT PFTS OUTPATIENT CHECK O2 SAT AT REST AND POST EXERCISE ON PRIOR TO DISCHARGE CTD W/U OUTPATIENT DR BOATENG Problem List - Problems (1) Diastolic heart failure Code(s): I50.30 - UNSPECIFIED DIASTOLIC (CONGESTIVE) HEART FAILURE (2) Abdominal distention Code(s): R14.0 - ABDOMINAL DISTENSION (GASEOUS) (3) Acute kidney injury Code(s): N17.9 - ACUTE KIDNEY FAILURE, UNSPECIFIED (4) Ascites Code(s): R18.8 - OTHER ASCITES Qualifiers: Ascites type: other type Qualified Code(s): R18.8 - Other ascites (5) CHF (congestive heart failure) Code(s): I50.9 - HEART FAILURE, UNSPECIFIED (6) Chronic venous stasis dermatitis Code(s): I87.2 - VENOUS INSUFFICIENCY (CHRONIC) (PERIPHERAL) (7) Cor pulmonale (chronic) Code(s): I27.81 - COR PULMONALE (CHRONIC) (8) Pulmonary hypertension Code(s): I27.20 - PULMONARY HYPERTENSION, UNSPECIFIED (9) Shortness of breath Code(s): R06.02 - SHORTNESS OF BREATH (10) Venous stasis ulcer Code(s): I83.009 - VARICOSE VEINS OF UNSP LOWER EXTREMITY W ULCER OF UNSP SITE; L97.909 - NON-PRS CHRONIC ULC UNSP PRT OF UNSP LOW LEG W UNSP SEVERITY
[2017-11-24 12:35] LABS: TOTAL PROTEIN,PERITONEAL FLUID 3 gm/dL
--- NOTE | 2017-11-24 13:41 | PN ---
Progress Note, Physician Chief Complaint: patient seen s/p paracentesis feeling a little better - Current Medication List Current Medications: Active Medications Acetaminophen (Tylenol -) 650 mg PO Q4H PRN PRN Reason: PAIN LEVEL 1-5 Last Admin: 11/23/17 18:21 Dose: 650 mg Allopurinol (Zyloprim -) 300 mg PO DAILY [facility] Last Admin: 11/24/17 09:43 Dose: 300 mg Atorvastatin Calcium (Lipitor -) 20 mg PO HS [facility] Last Admin: 11/23/17 21:46 Dose: 20 mg Furosemide (Lasix Injection -) 80 mg IVPUSH BID@0600,1400 [facility] Last Admin: 11/24/17 05:59 Dose: 80 mg Methimazole (Tapazole -) 5 mg PO DAILY [facility] Last Admin: 11/24/17 09:43 Dose: 5 mg Metoprolol Succinate (Toprol Xl -) 100 mg PO BID [facility] Last Admin: 11/24/17 09:43 Dose: 100 mg Polyethylene Glycol (Miralax (For Daily Use) -) 17 gm PO TID [facility] Last Admin: 11/24/17 05:59 Dose: 17 grams - Objective Vital Signs: Vital Signs Temperature 97.7 F 11/24/17 09:38 Pulse Rate 72 11/24/17 09:38 Respiratory Rate 20 11/24/17 09:38 Blood Pressure 118/56 11/24/17 09:38 O2 Sat by Pulse Oximetry (%) 100 11/24/17 09:00 Constitutional: Yes: Calm Cardiovascular: Yes: Regular Rate and Rhythm, S1, S2 Respiratory: Yes: On Nasal O2, Other (crackles) Gastrointestinal: Yes: Normal Bowel Sounds, Soft, Distention Edema: Yes Labs: CBC, BMP 11/24/17 07:05 11/24/17 07:05 INR, PTT INR 1.72 (0.82-1.09) H D 11/24/17 07:05 Problem List - Problems (1) Abdominal distention Assessment/Plan: s/p paracentesis Code(s): R14.0 - ABDOMINAL DISTENSION (GASEOUS) (2) Ascites Assessment/Plan: s/p paracentesis Code(s): R18.8 - OTHER ASCITES Qualifiers: Ascites type: other type Qualified Code(s): R18.8 - Other ascites (3) CHF (congestive heart failure) Assessment/Plan: iv lasix Code(s): I50.9 - HEART FAILURE, UNSPECIFIED (4) Atrial fibrillation Assessment/Plan: restart coumadin daily INR metoprolol Code(s): I48.91 - UNSPECIFIED ATRIAL FIBRILLATION (5) Hyperthyroidism Assessment/Plan: tapazole Code(s): E05.90 - THYROTOXICOSIS, UNSP WITHOUT THYROTOXIC CRISIS OR STORM
[2017-11-24 15:39] LABS: PERITONEAL RBC 3261 /mm3
[2017-11-24 15:43] LABS: PERITONEAL FLUID EOSINOPHIL 1 %; PERITONEAL FLUID LYMPHOCYTE 15 %; PERITONEAL FLUID MACROPHAGE 83 %; PERITONEAL FLUID NEUTROPHIL 1 %
--- NOTE | 2017-11-24 16:40 | PN ---
Progress Note, Physician Chief Complaint: Patient feels better after paracentesis with 2100 ml serous fluid removal. She has no SOB at rest and denies palpitation and chest pain. Tele shows atrial fibrillation with episodes of mild slow VR. No pauses longer than 3 seconds. History of Present Illness: 81 year-old woman with a PMHx of atrial fibrillation on Warfarin, HTN, HLD, venous stasis with ulcer and prior bleeding varicose vein (seen by Dr. Prabhjot Long), chronic constipation, admitted 11/20/2017 with progressive SOB, leg pain and abdominal distention. She was found to have acute diastolic CHF, severe pulmonary hypertension and cor pulmonale. She has been treated with IV Lasix. S/ p paracentesis with 2100 ml serous fluid removal. Severe obstructive sleep apnea noted. ECG 11/20/2017 showed atrial fibrillation with controlled VR at 74 BPM with IVCD and inferior and lateral ST and T abnormalities. CT chest and abdomen 11/20/2017 revealed cardiomegaly, CHF, pleural effusion and free fluid in the abdomen. Echo 11/21/2017: LV is "D" shape with paradoxical septal motion and normal LV systolic function. RV is dilated and hypokinetic. Severe LA and RA dilatation. Severe pulmonary hypertension. PASP = 106 mmHg. - Current Medication List Current Medications: Active Medications Acetaminophen (Tylenol -) 650 mg PO Q4H PRN PRN Reason: PAIN LEVEL 1-5 Last Admin: 11/23/17 18:21 Dose: 650 mg Allopurinol (Zyloprim -) 300 mg PO DAILY [facility] Last Admin: 11/24/17 09:43 Dose: 300 mg Atorvastatin Calcium (Lipitor -) 20 mg PO HS [facility] Last Admin: 11/23/17 21:46 Dose: 20 mg Furosemide (Lasix Injection -) 80 mg IVPUSH BID@0600,1400 [facility] Last Admin: 11/24/17 15:08 Dose: 80 mg Methimazole (Tapazole -) 5 mg PO DAILY [facility] Last Admin: 11/24/17 09:43 Dose: 5 mg Metoprolol Succinate (Toprol Xl -) 100 mg PO BID [facility] Last Admin: 11/24/17 09:43 Dose: 100 mg Polyethylene Glycol (Miralax (For Daily Use) -) 17 gm PO TID [facility] Last Admin: 11/24/17 13:58 Dose: 17 grams Warfarin Sodium (Coumadin -) 6 mg PO DAILY@1800 [facility] - Objective Vital Signs: Vital Signs Temperature 97.9 F 11/24/17 14:05 Pulse Rate 74 11/24/17 14:05 Respiratory Rate 20 11/24/17 14:05 Blood Pressure 132/57 11/24/17 14:05 O2 Sat by Pulse Oximetry (%) 100 11/24/17 09:00 General: Well developed. Obese. No acute distress. Head: Normocephalic. Atraumatic, Eyes: PERRLA, EOMI. Sclerae anicteric. Conjunctivae clear. Neck: Supple. (+) JVD. No bruits. Heart: Normal S1, S2: Irregularly regular rhythm and rate. No murmur. No gallop or rub. Lungs: Symmetrical limited air entry. Bibasilar crackle. No wheezing or rhonchi. Abdomen: Obese. Distended. Soft. Bowel sound positive. Non tender. No masses. Extremities: Trace edema. Venous stasis with eythema. . Neuro: Intact, no focal findings. AAO X3 Labs: CBC, BMP 11/24/17 07:05 11/24/17 07:05 INR, PTT INR 1.72 (0.82-1.09) H D 11/24/17 07:05 Assessment/Plan 81 year-old woman with a PMHx of atrial fibrillation on Warfarin, HTN, HLD, venous stasis with ulcer and prior bleeding varicose vein (seen by Dr. Prabhjot Long), chronic constipation, admitted 11/20/2017 with progressive SOB, leg pain and abdominal distention. She was found to have acute diastolic CHF, severe pulmonary hypertension and cor pulmonale. She has been treated with IV Lasix. S/ p paracentesis with 2100 ml serous fluid removal. Severe obstructive sleep apnea noted. ECG 11/20/2017 showed atrial fibrillation with controlled VR at 74 BPM with IVCD and inferior and lateral ST and T abnormalities. CT chest and abdomen 11/20/2017 revealed cardiomegaly, CHF, pleural effusion and free fluid in the abdomen. Echo 11/21/2017: LV is "D" shape with paradoxical septal motion and normal LV systolic function. RV is dilated and hypokinetic. Severe LA and RA dilatation. Severe pulmonary hypertension. PASP = 106 mmHg. 1) CHF: Acute diastolic CHF, right heart failure and severe pulmonary hypertension. Continue IV Lasix to 80 mg q12h to keep Os > Is. Monitor renal function and electrolytes. Daily weight. Pulmonary evaluation appreciated. Severe obstructive sleep apnea noted. 2) Chronic atrial fibrillation: Ventricular rate is well controlled. Continue metoprolol Continue warfarin to keep INR 2-3. 3) HTN: BP controlled. Losartan, Norvasc and hydralazine were discontinued. Continue Metoprolol.
[2017-11-24] MEDS: WARFARIN NA 3 MG TABLET PO SCH (17:41)
--- NOTE | 2017-11-24 18:08 | PN ---
Progress Note (short form) - Note Progress Note: Renal follow up for SLOANE Pt seen and examined at the bedside awake and alert no acute complaints Vital Signs Temperature 97.9 F 11/24/17 14:05 Pulse Rate 74 11/24/17 14:05 Respiratory Rate 20 11/24/17 14:05 Blood Pressure 132/57 11/24/17 14:05 O2 Sat by Pulse Oximetry (%) 100 11/24/17 09:00 Intake & Output 11/21/17 11/22/17 11/23/17 11/24/17 23:59 23:59 23:59 23:59 Intake Total 1010 810 630 240 Output Total 250 Balance 760 810 630 240 Weight 98.339 kg 98.702 kg NAD Dec BS at lung bases soft NT/ND No LE edema CBC, BMP 11/24/17 07:05 11/24/17 07:05 Current Medications Acetaminophen (Tylenol -) 650 mg PO Q4H PRN PRN Reason: PAIN LEVEL 1-5 Last Admin: 11/23/17 18:21 Dose: 650 mg Allopurinol (Zyloprim -) 300 mg PO DAILY [facility] Last Admin: 11/24/17 09:43 Dose: 300 mg Atorvastatin Calcium (Lipitor -) 20 mg PO HS [facility] Last Admin: 11/23/17 21:46 Dose: 20 mg Furosemide (Lasix Injection -) 80 mg IVPUSH BID@0600,1400 [facility] Last Admin: 11/24/17 15:08 Dose: 80 mg Methimazole (Tapazole -) 5 mg PO DAILY [facility] Last Admin: 11/24/17 09:43 Dose: 5 mg Metoprolol Succinate (Toprol Xl -) 100 mg PO BID [facility] Last Admin: 11/24/17 09:43 Dose: 100 mg Polyethylene Glycol (Miralax (For Daily Use) -) 17 gm PO TID [facility] Last Admin: 11/24/17 13:58 Dose: 17 grams Warfarin Sodium (Coumadin -) 6 mg PO DAILY@1800 [facility] Last Admin: 11/24/17 17:41 Dose: 6 mg 81 year old woman with PMhx of Afib on Coumadin, HTN, Hyperlipidemia, Venous stasis, ? CKD who presented with complaints of worsening SOB, and Abd distension and admitted for Diastolic HF, Abd ascities and found to have Cr of 1.8. #Acute Renal Failure with possible history of CKD in setting of HF/Asciteis Urine studies consistent with pre-renal injury continue to hold ARB continue Lasix as needed for volume management trend BUN/Cr no indication for [employer] Denis Boogie DO
--- NOTE | 2017-11-24 18:57 | PN ---
GI Progress Note Subjective: GI NOte: Had paracentesis. The fluid analysis is consistent with chronic passive congestion due to right heart failure. Her Ca 125 is over 700 but her ovaries are not evident on CT. Await cytology. She has not lost any weight. No evidence for chronic viral hepatitis. Situation discussed with patient and her family at the bedside - Objective Vital Signs: Vital Signs Temperature 97.9 F 11/24/17 14:05 Pulse Rate 74 11/24/17 14:05 Respiratory Rate 20 11/24/17 14:05 Blood Pressure 132/57 11/24/17 14:05 O2 Sat by Pulse Oximetry (%) 100 11/24/17 09:00 Constitutional: No Distress Gastrointestinal Inspection: Yes: Distention ...Auscultate: Yes: Normoactive Bowel Sounds ...Palpate: Yes: Other (nontender) Labs: CBC, BMP 11/24/17 07:05 11/24/17 07:05 INR, PTT INR 1.72 (0.82-1.09) H D 11/24/17 07:05 Assessment/Plan Ascites due to right heart failure but await cytology to exclude ovarian cancer Problem List - Problems (1) Ascites Code(s): R18.8 - OTHER ASCITES Qualifiers: Ascites type: other type Qualified Code(s): R18.8 - Other ascites (2) Cor pulmonale (chronic) Code(s): I27.81 - COR PULMONALE (CHRONIC) (3) Pulmonary hypertension Code(s): I27.20 - PULMONARY HYPERTENSION, UNSPECIFIED (4) Constipation Code(s): K59.00 - CONSTIPATION, UNSPECIFIED
[2017-11-24] MEDS: ATORVASTATIN CA 20 MG TABLET (FP) PO SCH (21:39)
[2017-11-25] MEDS: POLYETHYLENE GLYCOL 3350 119 GM BTL PO SCH ×3 (05:54→21:13)
[2017-11-25] MEDS: FUROSEMIDE 40 MG/4 ML INJECTABLE VIAL IVPUSH SCH ×2 (05:55→13:54)
[2017-11-25 07:39] LABS: BASO % 1.5 % (0-2.0); EOS % 4.7 % (0-4.5); HEMATOCRIT 34.6 % (32.4-45.2); HEMOGLOBIN 10.7 GM/dL (10.7-15.3); LYMPH % 14.7 % (8-40); MCH 25.4 pg (25.7-33.7); MEAN CELL VOLUME 82.1 fl (80-96); MEAN PLT VOLUME 9.2 fl (7.5-11.1); MONO % 9.7 % (3.8-10.2); NEUT % 69.4 % (42.8-82.8); PLATELET COUNT 164 K/MM3 (134-434); RBC 4.21 M/mm3 (3.60-5.2); RDW 17.1 % (11.6-15.6); WHITE BLOOD COUNT 4.7 K/mm3 (4.0-10.0)
[2017-11-25 07:54] LABS: INR 1.39 (0.82-1.09); PROTHROMBIN TIME (PATIENT) 15.7 SEC (9.98-11.88)
[2017-11-25 08:04] LABS: ANION GAP 3 (8-16); BLOOD UREA NITROGEN 50 mg/dL (7-18); CHLORIDE 105 mmol/L (98-107); CO2 33 mmol/L (21-32); CREATININE 1.8 mg/dL (0.55-1.02); GLUCOSE,RANDOM 125 mg/dL (74-106); MAGNESIUM 2.2 mg/dL (1.8-2.4); PHOSPHOROUS 4.4 mg/dL (2.5-4.9); POTASSIUM 4.8 mmol/L (3.5-5.1); SODIUM 141 mmol/L (136-145)
[2017-11-25] MEDS: METHIMAZOLE 5 MG TABLET (FP) PO SCH (10:38)
[2017-11-25] MEDS: ALLOPURINOL 300 MG TABLET (FP) PO SCH (10:38)
--- NOTE | 2017-11-25 12:32 | PN ---
Progress Note, Physician Chief Complaint: less sob tele af controlled VR History of Present Illness: 81 year-old woman with a PMHx of atrial fibrillation on Warfarin, HTN, HLD, venous stasis with ulcer and prior bleeding varicose vein (seen by Dr. Prabhjot Long), chronic constipation, admitted 11/20/2017 with progressive SOB, leg pain and abdominal distention. She was found to have acute diastolic CHF, severe pulmonary hypertension and cor pulmonale. She has been treated with IV Lasix. S/ p paracentesis with 2100 ml serous fluid removal. Severe obstructive sleep apnea noted. ECG 11/20/2017 showed atrial fibrillation with controlled VR at 74 BPM with IVCD and inferior and lateral ST and T abnormalities. CT chest and abdomen 11/20/2017 revealed cardiomegaly, CHF, pleural effusion and free fluid in the abdomen. Echo 11/21/2017: LV is "D" shape with paradoxical septal motion and normal LV systolic function. RV is dilated and hypokinetic. Severe LA and RA dilatation. Severe pulmonary hypertension. PASP = 106 mmHg. - Current Medication List Current Medications: Active Medications Acetaminophen (Tylenol -) 650 mg PO Q4H PRN PRN Reason: PAIN LEVEL 1-5 Last Admin: 11/23/17 18:21 Dose: 650 mg Allopurinol (Zyloprim -) 300 mg PO DAILY [facility] Last Admin: 11/25/17 10:38 Dose: 300 mg Atorvastatin Calcium (Lipitor -) 20 mg PO HS [facility] Last Admin: 11/24/17 21:39 Dose: 20 mg Furosemide (Lasix Injection -) 80 mg IVPUSH BID@0600,1400 [facility] Last Admin: 11/25/17 05:55 Dose: 80 mg Methimazole (Tapazole -) 5 mg PO DAILY [facility] Last Admin: 11/25/17 10:38 Dose: 5 mg Metoprolol Succinate (Toprol Xl -) 100 mg PO BID [facility] Last Admin: 11/25/17 10:38 Dose: 100 mg Polyethylene Glycol (Miralax (For Daily Use) -) 17 gm PO TID [facility] Last Admin: 11/25/17 05:54 Dose: 17 grams Warfarin Sodium (Coumadin -) 6 mg PO DAILY@1800 [facility] Last Admin: 11/24/17 17:41 Dose: 6 mg - Objective Vital Signs: Vital Signs Temperature 97.6 F 11/25/17 09:21 Pulse Rate 75 03/17/18 12:11 Respiratory Rate 20 11/25/17 12:11 Blood Pressure 133/64 11/25/17 12:11 O2 Sat by Pulse Oximetry (%) 97 11/25/17 09:00 Constitutional: Yes: No Distress, Calm Eyes: Yes: Conjunctiva Clear, EOM Intact HENT: Yes: Atraumatic, Normocephalic Neck: Yes: Trachea Midline Cardiovascular: Yes: Pulse Irregular, JVD Respiratory: Yes: CTA Bilaterally Gastrointestinal: Yes: Ascites, Distention Extremities: Yes: WNL Edema: LLE: 2+, RLE: 2+ Peripheral Pulses WNL: Yes Labs: CBC, BMP 11/25/17 06:59 11/25/17 06:59 INR, PTT INR 1.39 (0.82-1.09) H 11/25/17 06:59 Assessment/Plan 1) CHF: Acute on chronic diastolic CHF, right heart failure and severe pulmonary hypertension. Continue IV Lasix to 80 mg q12h to keep Os > Is. Monitor renal function and electrolytes. Daily weight. Pulmonary evaluation appreciated. Severe obstructive sleep apnea noted. Her Echocardiogram is c/w Cor Pulmonale which is probably the cause of her ascites. Unclear etiology of cor pulmonale. Consider Duplex and PE workup as well. 2) Chronic atrial fibrillation: Ventricular rate is well controlled. Continue metoprolol Continue warfarin to keep INR 2-3. 3) HTN: BP controlled. Losartan, Norvasc and hydralazine were discontinued. Continue Metoprolol.
--- NOTE | 2017-11-25 12:54 | PN ---
Progress Note (short form) - Note Progress Note: Resting in NAD. Appears more comfortable. Intake & Output 11/22/17 11/23/17 11/24/17 11/25/17 23:59 23:59 23:59 23:59 Intake Total 810 630 360 240 Balance 810 630 360 240 Weight 216 lb 12.8 oz 217 lb 9.6 oz 211 lb 4 oz Last Vital Signs Temp Pulse Resp BP Pulse Ox 97.6 F 75 20 133/64 97 11/25/17 09:21 11/25/17 12:11 11/25/17 12:11 11/25/17 12:11 11/25/17 09:00 Active Medications Acetaminophen (Tylenol -) 650 mg PO Q4H PRN PRN Reason: PAIN LEVEL 1-5 Last Admin: 11/23/17 18:21 Dose: 650 mg Allopurinol (Zyloprim -) 300 mg PO DAILY [facility] Last Admin: 11/25/17 10:38 Dose: 300 mg Atorvastatin Calcium (Lipitor -) 20 mg PO HS [facility] Last Admin: 11/24/17 21:39 Dose: 20 mg Furosemide (Lasix Injection -) 80 mg IVPUSH BID@0600,1400 [facility] Last Admin: 11/25/17 05:55 Dose: 80 mg Methimazole (Tapazole -) 5 mg PO DAILY [facility] Last Admin: 11/25/17 10:38 Dose: 5 mg Metoprolol Succinate (Toprol Xl -) 100 mg PO BID [facility] Last Admin: 11/25/17 10:38 Dose: 100 mg Polyethylene Glycol (Miralax (For Daily Use) -) 17 gm PO TID [facility] Last Admin: 11/25/17 05:54 Dose: 17 grams Warfarin Sodium (Coumadin -) 6 mg PO DAILY@1800 [facility] Last Admin: 11/24/17 17:41 Dose: 6 mg Constitutional: Yes: NAD HENT: Yes: WNL Neck: Yes: WNL Cardiovascular: Yes: Pulse Irregular Respiratory: Yes: On Nasal O2 Gastrointestinal: Yes: Ascites, Distention Genitourinary: Yes: WNL Musculoskeletal: Yes: Muscle Weakness Extremities: Yes: WNL Edema: No Peripheral Pulses WNL: Yes Integumentary: Yes: Venous Stasis Changes Wound/Incision: Yes: Clean/Dry Neurological: Yes: WNL ...Motor Strength: WNL Psychiatric: Yes: WNL Laboratory Results - last 24 hr 11/24/17 11/25/17 11/25/17 10:30 06:59 06:59 WBC 4.7 RBC 4.21 Hgb 10.7 Hct 34.6 MCV 82.1 MCH 25.4 L MCHC 31.0 L RDW 17.1 H Plt Count 164 MPV 9.2 Neutrophils % 69.4 Lymphocytes % 14.7 Monocytes % 9.7 Eosinophils % 4.7 H Basophils % 1.5 PT with INR 15.70 H INR 1.39 H Sodium Potassium Chloride Carbon Dioxide Anion Gap BUN Creatinine Random Glucose Calcium Phosphorus Magnesium Peritoneal WBC 382 Peritoneal RBC 3261 Periton Neutrophils 1 Periton Lymphocytes 15 Peritoneal Eosinophils 1 Periton Macrophages 83 11/25/17 06:59 WBC RBC Hgb Hct MCV MCH MCHC RDW Plt Count MPV Neutrophils % Lymphocytes % Monocytes % Eosinophils % Basophils % PT with INR INR Sodium 141 Potassium 4.8 Chloride 105 Carbon Dioxide 33 H Anion Gap 3 L BUN 50 H Creatinine 1.8 H Random Glucose 125 H Calcium 8.0 L Phosphorus 4.4 Magnesium 2.2 Peritoneal WBC Peritoneal RBC Periton Neutrophils Periton Lymphocytes Peritoneal Eosinophils Periton Macrophages Problem List - Problems (1) Diastolic heart failure Code(s): I50.30 - UNSPECIFIED DIASTOLIC (CONGESTIVE) HEART FAILURE (2) Abdominal distention Code(s): R14.0 - ABDOMINAL DISTENSION (GASEOUS) (3) Acute kidney injury Code(s): N17.9 - ACUTE KIDNEY FAILURE, UNSPECIFIED (4) Ascites Code(s): R18.8 - OTHER ASCITES Qualifiers: Ascites type: other type Qualified Code(s): R18.8 - Other ascites (5) CHF (congestive heart failure) Code(s): I50.9 - HEART FAILURE, UNSPECIFIED (6) Chronic venous stasis dermatitis Code(s): I87.2 - VENOUS INSUFFICIENCY (CHRONIC) (PERIPHERAL) (7) Cor pulmonale (chronic) Code(s): I27.81 - COR PULMONALE (CHRONIC) (8) Pulmonary hypertension Code(s): I27.20 - PULMONARY HYPERTENSION, UNSPECIFIED (9) Shortness of breath Code(s): R06.02 - SHORTNESS OF BREATH (10) Venous stasis ulcer Code(s): I83.009 - VARICOSE VEINS OF UNSP LOWER EXTREMITY W ULCER OF UNSP SITE; L97.909 - NON-PRS CHRONIC ULC UNSP PRT OF UNSP LOW LEG W UNSP SEVERITY IMP DYSPNEA ACUTE DIASTOLIC HF SEVERE PULMONARY HTN COR PULMONALE ASCITES SECONDARY TO ABOVE HTN HLD PVD OBESILY SLOANE PROBABLE OSAS PLAN IV LASIX O2 DAILY WTS MONITOR LYTES,RENAL FUNCTION PFTS OUTPATIENT CHECK O2 SAT AT REST AND POST EXERCISE ON PRIOR TO DISCHARGE CTD W/U OUTPATIENT DR WEIR
--- NOTE | 2017-11-25 12:55 | PN ---
Progress Note (short form) - Note Progress Note: Renal follow up for SLOANE Pt seen and examined at the bedside awake and alert s/p paracentesis yesterday reports improvement in sob no fever, chills, N/V/D family at the bedside Vital Signs Temperature 97.6 F 11/25/17 09:21 Pulse Rate 75 11/25/17 12:11 Respiratory Rate 20 11/25/17 12:11 Blood Pressure 133/64 11/25/17 12:11 O2 Sat by Pulse Oximetry (%) 97 11/25/17 09:00 Intake & Output 11/22/17 11/23/17 11/24/17 11/25/17 23:59 23:59 23:59 23:59 Intake Total 810 630 360 240 Balance 810 630 360 240 Weight 98.339 kg 98.702 kg 95.821 kg NAD Dec BS at lung bases soft NT/ND, + ascities No LE edema CBC, BMP 11/25/17 06:59 11/25/17 06:59 Current Medications Acetaminophen (Tylenol -) 650 mg PO Q4H PRN PRN Reason: PAIN LEVEL 1-5 Last Admin: 11/23/17 18:21 Dose: 650 mg Allopurinol (Zyloprim -) 300 mg PO DAILY [facility] Last Admin: 11/25/17 10:38 Dose: 300 mg Atorvastatin Calcium (Lipitor -) 20 mg PO HS [facility] Last Admin: 11/24/17 21:39 Dose: 20 mg Furosemide (Lasix Injection -) 80 mg IVPUSH BID@0600,1400 [facility] Last Admin: 11/25/17 05:55 Dose: 80 mg Methimazole (Tapazole -) 5 mg PO DAILY [facility] Last Admin: 11/25/17 10:38 Dose: 5 mg Metoprolol Succinate (Toprol Xl -) 100 mg PO BID [facility] Last Admin: 11/25/17 10:38 Dose: 100 mg Polyethylene Glycol (Miralax (For Daily Use) -) 17 gm PO TID [facility] Last Admin: 11/25/17 05:54 Dose: 17 grams Warfarin Sodium (Coumadin -) 6 mg PO DAILY@1800 [facility] Last Admin: 11/24/17 17:41 Dose: 6 mg 81 year old woman with PMhx of Afib on Coumadin, HTN, Hyperlipidemia, Venous stasis, ? CKD who presented with complaints of worsening SOB, and Abd distension and admitted for Diastolic HF, Abd ascities and found to have Cr of 1.8. #Acute Renal Failure with possible history of CKD in setting of HF/Asciteis Urine studies consistent with pre-renal injury Renal function stable during admission (BUN slighly uptrended) would continue Lasix as needed for fluid management would avoid ARB/ACEi as pt getting diuretics trend serum bicarb, if it continues to rise it may be due to contraction alkalosis in setting of diuresis keep MAP > 65 s/p paracentesis yesterday trend daily weights Denis Boogie DO
[2017-11-25] MEDS: ACETAMINOPHEN 325 MG TABLET (FP) PO PRN (13:52)
--- NOTE | 2017-11-25 15:21 | PN ---
Physical Exam: SUBJECTIVE: Patient seen and examined. She is sleeping. She moves in response to pain but does not arouse. OBJECTIVE: Vital Signs Period Temp Pulse Resp BP Sys/Stevens Pulse Ox Last 24 Hr 97.6 F-99 F 69-80 20-22 94-154/41-82 97-99 GENERAL: The patient is sleeping and unarousable. LUNGS: Breath sounds diminished at bases. HEART: Irregularly irregular. ABDOMEN: Soft, distended, normoactive bowel sounds. EXTREMITIES: 2+ pulses, warm, well-perfused, 1+ edema. Laboratory Results - last 24 hr 11/24/17 11/25/17 11/25/17 10:30 06:59 06:59 WBC 4.7 RBC 4.21 Hgb 10.7 Hct 34.6 MCV 82.1 MCH 25.4 L MCHC 31.0 L RDW 17.1 H Plt Count 164 MPV 9.2 Neutrophils % 69.4 Lymphocytes % 14.7 Monocytes % 9.7 Eosinophils % 4.7 H Basophils % 1.5 PT with INR 15.70 H INR 1.39 H Sodium Potassium Chloride Carbon Dioxide Anion Gap BUN Creatinine Random Glucose Calcium Phosphorus Magnesium Peritoneal WBC 382 Peritoneal RBC 3261 Periton Neutrophils 1 Periton Lymphocytes 15 Peritoneal Eosinophils 1 Periton Macrophages 83 11/25/17 06:59 WBC RBC Hgb Hct MCV MCH MCHC RDW Plt Count MPV Neutrophils % Lymphocytes % Monocytes % Eosinophils % Basophils % PT with INR INR Sodium 141 Potassium 4.8 Chloride 105 Carbon Dioxide 33 H Anion Gap 3 L BUN 50 H Creatinine 1.8 H Random Glucose 125 H Calcium 8.0 L Phosphorus 4.4 Magnesium 2.2 Peritoneal WBC Peritoneal RBC Periton Neutrophils Periton Lymphocytes Peritoneal Eosinophils Periton Macrophages Active Medications Generic Name Dose Route Start Last Admin Trade Name Freq PRN Reason Stop Dose Admin Acetaminophen 650 mg 11/21/17 11:08 11/25/17 13:52 Tylenol - PO 650 mg Q4H PRN Administration PAIN LEVEL 1-5 Allopurinol 300 mg 11/21/17 10:00 11/25/17 10:38 Zyloprim - PO 300 mg DAILY [facility] Administration Atorvastatin Calcium 20 mg 11/20/17 22:00 11/24/17 21:39 Lipitor - PO 20 mg HS [facility] Administration Furosemide 80 mg 11/24/17 06:00 11/25/17 13:54 Lasix Injection - IVPUSH 80 mg BID@0600,1400 [facility] Administration Methimazole 5 mg 11/21/17 10:00 11/25/17 10:38 Tapazole - PO 5 mg DAILY [facility] Administration Metoprolol Succinate 100 mg 11/20/17 22:00 11/25/17 10:38 Toprol Xl - PO 100 mg BID [facility] Administration Polyethylene Glycol 17 gm 11/21/17 14:00 11/25/17 13:55 Miralax (For Daily Use) - PO 17 grams TID [facility] Administration Warfarin Sodium 6 mg 11/24/17 18:00 11/24/17 17:41 Coumadin - PO 6 mg DAILY@1800 [facility] Administration ASSESSMENT/PLAN: 1. Acute metabolic encephalopathy - Check ABG - Consider BiPAP 2. Acute diastolic and right sided heart failure - Continue Lasix IV - s/p paracentesis for ascites 11/24 - Monitor I&O, weight - Oxygen to maintain saturation>90% 3. Chronic cor pulmonale secondary to severe pulmonary HTN 4. Permanent atrial fibrillation - Rate controlled - Continue Toprol XL, Coumadin 5. HTN - Continue Toprol XL 6. Hyperthyroidism - Continue Tapazole 7. Obesity 8. Probable OFELIA - BiPAP at night 9. Acute kidney injury, probable stage 3 CKD - Creatinine stable Visit type - Emergency Visit Emergency Visit: Yes ED Registration Date: 11/20/17 Care time: The patient presented to the Emergency Department on the above date and was hospitalized for further evaluation of their emergent condition. - New Patient This patient is new to me today: Yes Date on this admission: 11/25/17 - Critical Care Critical Care patient: No - Discharge Referral Referred to [facility] Med P.C.: No
[2017-11-25 16:37] LABS: ARTERIAL BLD GAS O2 SATURATION 97.1 % (90-98.9); ARTERIAL BLOOD GAS BASE EXCESS 2.8 meq/l (-2-2); ARTERIAL BLOOD GAS PO2 97.1 mmHg (70-100); ARTERIAL BLOOD GAS pH 7.27 (7.35-7.45)
[2017-11-25 16:39] LABS: ALLENS TEST POSITIVE
[2017-11-25 16:40] LABS: ARTERIAL BLOOD GAS PCO2 70.1 mmHg (35-45)
[2017-11-25 17:08] LABS: BASO % 1.5 % (0-2.0); EOS % 4.2 % (0-4.5); HEMATOCRIT 35.8 % (32.4-45.2); HEMOGLOBIN 11.2 GM/dL (10.7-15.3); LYMPH % 12.9 % (8-40); MCH 25.7 pg (25.7-33.7); MCHC 31.2 g/dl (32.0-36.0); MEAN CELL VOLUME 82.3 fl (80-96); MEAN PLT VOLUME 9.2 fl (7.5-11.1); MONO % 9.6 % (3.8-10.2); NEUT % 71.8 % (42.8-82.8); PLATELET COUNT 170 K/MM3 (134-434); RBC 4.35 M/mm3 (3.60-5.2); WHITE BLOOD COUNT 5.1 K/mm3 (4.0-10.0)
[2017-11-25] MEDS: WARFARIN NA 3 MG TABLET PO SCH (17:11)
[2017-11-25 17:43] LABS: ANION GAP 4 (8-16); BILIRUBIN,TOTAL 0.6 mg/dL (0.2-1.0); BLOOD UREA NITROGEN 50 mg/dL (7-18); CALCIUM 8.1 mg/dL (8.5-10.1); CHLORIDE 105 mmol/L (98-107); CO2 32 mmol/L (21-32); CREATININE 1.8 mg/dL (0.55-1.02); GLUCOSE,RANDOM 125 mg/dL (74-106); POTASSIUM 4.8 mmol/L (3.5-5.1); SGOT/AST 20 U/L (15-37); SGPT/ALT 20 U/L (12-78); SODIUM 141 mmol/L (136-145)
[2017-11-25 17:44] LABS: ALK PHOS 128 U/L (45-117)
[2017-11-25] MEDS: ATORVASTATIN CA 20 MG TABLET (FP) PO SCH (21:12)
[2017-11-26] MEDS: FUROSEMIDE 40 MG/4 ML INJECTABLE VIAL IVPUSH SCH ×2 (06:58→15:50)
[2017-11-26] MEDS: POLYETHYLENE GLYCOL 3350 119 GM BTL PO SCH ×3 (07:05→22:28)
[2017-11-26 07:08] LABS: ARTERIAL BLD GAS O2 SATURATION 98.9 % (90-98.9); ARTERIAL BLOOD GAS BASE EXCESS 3.8 meq/l (-2-2); ARTERIAL BLOOD GAS pH 7.32 (7.35-7.45)
[2017-11-26 07:12] LABS: ALLENS TEST POSITIVE
[2017-11-26 07:14] LABS: ARTERIAL BLOOD GAS PCO2 60.5 mmHg (35-45)
[2017-11-26 07:18] LABS: BASO % 1.8 % (0-2.0); EOS % 3.9 % (0-4.5); HEMATOCRIT 34.4 % (32.4-45.2); HEMOGLOBIN 10.7 GM/dL (10.7-15.3); LYMPH % 13.1 % (8-40); MCH 25.6 pg (25.7-33.7); MCHC 31.3 g/dl (32.0-36.0); MEAN CELL VOLUME 81.9 fl (80-96); MEAN PLT VOLUME 8.5 fl (7.5-11.1); MONO % 8.4 % (3.8-10.2); NEUT % 72.8 % (42.8-82.8); PLATELET COUNT 172 K/MM3 (134-434); RDW 17.2 % (11.6-15.6); WHITE BLOOD COUNT 4.8 K/mm3 (4.0-10.0)
[2017-11-26 07:54] LABS: ANION GAP 10 (8-16); BLOOD UREA NITROGEN 45 mg/dL (7-18); CALCIUM 8.6 mg/dL (8.5-10.1); CHLORIDE 104 mmol/L (98-107); CO2 30 mmol/L (21-32); CREATININE 1.6 mg/dL (0.55-1.02); GLUCOSE,RANDOM 124 mg/dL (74-106); MAGNESIUM 2.4 mg/dL (1.8-2.4); PHOSPHOROUS 3.7 mg/dL (2.5-4.9); POTASSIUM 4.6 mmol/L (3.5-5.1); SODIUM 144 mmol/L (136-145)
[2017-11-26] MEDS: ALLOPURINOL 300 MG TABLET (FP) PO SCH (10:19)
[2017-11-26] MEDS: METHIMAZOLE 5 MG TABLET (FP) PO SCH (10:19)
[2017-11-26] MEDS: ACETAMINOPHEN 325 MG TABLET (FP) PO PRN (12:19)
--- NOTE | 2017-11-26 12:42 | PN ---
Progress Note (short form) - Note Progress Note: Appears more comfortable. Less SOB. Intake & Output 11/23/17 11/24/17 11/25/17 11/26/17 23:59 23:59 23:59 23:59 Intake Total 630 360 850 Output Total 400 Balance 630 360 450 Weight 217 lb 9.6 oz 211 lb 4 oz 213 lb Last Vital Signs Temp Pulse Resp BP Pulse Ox 97.7 F 78 20 124/62 95 11/26/17 05:00 11/26/17 05:00 11/26/17 05:00 11/26/17 05:00 11/25/17 21:00 Active Medications Acetaminophen (Tylenol -) 650 mg PO Q4H PRN PRN Reason: PAIN LEVEL 1-5 Last Admin: 11/26/17 12:19 Dose: 650 mg Allopurinol (Zyloprim -) 300 mg PO DAILY [facility] Last Admin: 11/26/17 10:19 Dose: 300 mg Atorvastatin Calcium (Lipitor -) 20 mg PO HS [facility] Last Admin: 11/25/17 21:12 Dose: 20 mg Furosemide (Lasix Injection -) 80 mg IVPUSH BID@0600,1400 [facility] Last Admin: 11/26/17 06:58 Dose: 80 mg Methimazole (Tapazole -) 5 mg PO DAILY [facility] Last Admin: 11/26/17 10:19 Dose: 5 mg Metoprolol Succinate (Toprol Xl -) 100 mg PO BID [facility] Last Admin: 11/26/17 10:19 Dose: 100 mg Polyethylene Glycol (Miralax (For Daily Use) -) 17 gm PO TID [facility] Last Admin: 11/26/17 07:05 Dose: 17 grams Warfarin Sodium (Coumadin -) 6 mg PO DAILY@1800 [facility] Last Admin: 11/25/17 17:11 Dose: 6 mg Constitutional: Yes: NAD HENT: Yes: WNL Neck: Yes: WNL Cardiovascular: Yes: Pulse Irregular Respiratory: Yes: On Nasal O2 Gastrointestinal: Yes: Ascites, Distention Genitourinary: Yes: WNL Musculoskeletal: Yes: Muscle Weakness Extremities: Yes: WNL Edema: No Peripheral Pulses WNL: Yes Integumentary: Yes: Venous Stasis Changes Wound/Incision: Yes: Clean/Dry Neurological: Yes: WNL ...Motor Strength: WNL Psychiatric: Yes: WNL Laboratory Results - last 24 hr 11/25/17 11/25/17 11/25/17 16:30 17:00 17:00 WBC 5.1 RBC 4.35 Hgb 11.2 Hct 35.8 MCV 82.3 MCH 25.7 MCHC 31.2 L RDW 17.0 H Plt Count 170 MPV 9.2 Neutrophils % 71.8 Lymphocytes % 12.9 Monocytes % 9.6 Eosinophils % 4.2 Basophils % 1.5 Anticoagulation Therapy No Result Required. Puncture Site Right brachial ABG pH 7.27 L ABG pCO2 at Pt Temp 70.1 H* ABG pO2 at Pt Temp 97.1 ABG HCO3 31.0 H ABG O2 Sat (Measured) 97.1 ABG O2 Content 15.8 ABG Base Excess 2.8 H Memo Test Positive O2 Delivery Device Nc Oxygen Flow Rate 3l Vent Mode No Result Required. Vent Rate No Result Required. Mechanical Rate No Result Required. Pressure Support Vent No Result Required. Sodium 141 Potassium 4.8 Chloride 105 Carbon Dioxide 32 Anion Gap 4 L BUN 50 H Creatinine 1.8 H Creat Clearance w eGFR 27.14 Random Glucose 125 H Calcium 8.1 L Phosphorus Magnesium Total Bilirubin 0.6 D AST 20 ALT 20 Alkaline Phosphatase 128 H Total Protein 6.0 L Albumin 3.0 L 11/26/17 11/26/17 11/26/17 06:50 06:57 06:57 WBC 4.8 RBC 4.20 Hgb 10.7 Hct 34.4 MCV 81.9 MCH 25.6 L MCHC 31.3 L RDW 17.2 H Plt Count 172 MPV 8.5 Neutrophils % 72.8 Lymphocytes % 13.1 Monocytes % 8.4 Eosinophils % 3.9 Basophils % 1.8 Anticoagulation Therapy Puncture Site Left radial ABG pH 7.32 L ABG pCO2 at Pt Temp 60.5 H* ABG pO2 at Pt Temp 126.0 H D ABG HCO3 30.6 H ABG O2 Sat (Measured) 98.9 ABG O2 Content 14.9 L ABG Base Excess 3.8 H Memo Test Positive O2 Delivery Device Bipap Oxygen Flow Rate 40% Vent Mode S/t Vent Rate 16 Mechanical Rate Pressure Support Vent 12/5 Sodium 144 Potassium 4.6 Chloride 104 Carbon Dioxide 30 Anion Gap 10 BUN 45 H Creatinine 1.6 H Creat Clearance w eGFR Random Glucose 124 H Calcium 8.6 Phosphorus 3.7 Magnesium 2.4 Total Bilirubin AST ALT Alkaline Phosphatase Total Protein Albumin Problem List - Problems (1) Diastolic heart failure Code(s): I50.30 - UNSPECIFIED DIASTOLIC (CONGESTIVE) HEART FAILURE (2) Abdominal distention Code(s): R14.0 - ABDOMINAL DISTENSION (GASEOUS) (3) Acute kidney injury Code(s): N17.9 - ACUTE KIDNEY FAILURE, UNSPECIFIED (4) Ascites Code(s): R18.8 - OTHER ASCITES Qualifiers: Ascites type: other type Qualified Code(s): R18.8 - Other ascites (5) CHF (congestive heart failure) Code(s): I50.9 - HEART FAILURE, UNSPECIFIED (6) Chronic venous stasis dermatitis Code(s): I87.2 - VENOUS INSUFFICIENCY (CHRONIC) (PERIPHERAL) (7) Cor pulmonale (chronic) Code(s): I27.81 - COR PULMONALE (CHRONIC) (8) Pulmonary hypertension Code(s): I27.20 - PULMONARY HYPERTENSION, UNSPECIFIED (9) Shortness of breath Code(s): R06.02 - SHORTNESS OF BREATH (10) Venous stasis ulcer Code(s): I83.009 - VARICOSE VEINS OF UNSP LOWER EXTREMITY W ULCER OF UNSP SITE; L97.909 - NON-PRS CHRONIC ULC UNSP PRT OF UNSP LOW LEG W UNSP SEVERITY IMP DYSPNEA ACUTE DIASTOLIC HF SEVERE PULMONARY HTN COR PULMONALE ASCITES SECONDARY TO ABOVE HTN HLD PVD OBESILY SLOANE PROBABLE OSAS PLAN IV LASIX O2 NEEDED TO MAINTAIN SATURATION DAILY WTS MONITOR LYTES,RENAL FUNCTION PFTS OUTPATIENT CHECK O2 SAT AT REST AND POST EXERCISE ON PRIOR TO DISCHARGE CTD W/U OUTPATIENT DR WEIR
--- NOTE | 2017-11-26 13:16 | PN ---
Progress Note, Physician Chief Complaint: less sob tele af controlled VR History of Present Illness: 81 year-old woman with a PMHx of atrial fibrillation on Warfarin, HTN, HLD, venous stasis with ulcer and prior bleeding varicose vein (seen by Dr. Prabhjot Long), chronic constipation, admitted 11/20/2017 with progressive SOB, leg pain and abdominal distention. She was found to have acute diastolic CHF, severe pulmonary hypertension and cor pulmonale. She has been treated with IV Lasix. S/ p paracentesis with 2100 ml serous fluid removal. Severe obstructive sleep apnea noted. ECG 11/20/2017 showed atrial fibrillation with controlled VR at 74 BPM with IVCD and inferior and lateral ST and T abnormalities. CT chest and abdomen 11/20/2017 revealed cardiomegaly, CHF, pleural effusion and free fluid in the abdomen. Echo 11/21/2017: LV is "D" shape with paradoxical septal motion and normal LV systolic function. RV is dilated and hypokinetic. Severe LA and RA dilatation. Severe pulmonary hypertension. PASP = 106 mmHg. - Current Medication List Current Medications: Active Medications Acetaminophen (Tylenol -) 650 mg PO Q4H PRN PRN Reason: PAIN LEVEL 1-5 Last Admin: 11/26/17 12:19 Dose: 650 mg Allopurinol (Zyloprim -) 300 mg PO DAILY [facility] Last Admin: 11/26/17 10:19 Dose: 300 mg Atorvastatin Calcium (Lipitor -) 20 mg PO HS [facility] Last Admin: 11/25/17 21:12 Dose: 20 mg Furosemide (Lasix Injection -) 80 mg IVPUSH BID@0600,1400 [facility] Last Admin: 11/26/17 06:58 Dose: 80 mg Methimazole (Tapazole -) 5 mg PO DAILY [facility] Last Admin: 11/26/17 10:19 Dose: 5 mg Metoprolol Succinate (Toprol Xl -) 100 mg PO BID [facility] Last Admin: 11/26/17 10:19 Dose: 100 mg Polyethylene Glycol (Miralax (For Daily Use) -) 17 gm PO TID [facility] Last Admin: 11/26/17 07:05 Dose: 17 grams Warfarin Sodium (Coumadin -) 6 mg PO DAILY@1800 [facility] Last Admin: 11/25/17 17:11 Dose: 6 mg - Objective Vital Signs: Vital Signs Temperature 97.7 F 11/26/17 05:00 Pulse Rate 78 03/18/18 05:00 Respiratory Rate 20 11/26/17 05:00 Blood Pressure 124/62 11/26/17 05:00 O2 Sat by Pulse Oximetry (%) 95 11/25/17 21:00 Constitutional: Yes: No Distress, Calm Eyes: Yes: Conjunctiva Clear, EOM Intact HENT: Yes: Atraumatic, Normocephalic Neck: Yes: Trachea Midline Cardiovascular: Yes: Regular Rate and Rhythm, Pulse Irregular Respiratory: Yes: Dullness (bilat bases) Gastrointestinal: Yes: Abdomen, Obese, Ascites Edema: Yes Edema: LLE: 1+, RLE: 1+ Peripheral Pulses WNL: Yes Labs: CBC, BMP 11/26/17 06:57 11/26/17 06:57 INR, PTT INR 1.39 (0.82-1.09) H 11/25/17 06:59 Problem List - Problems (1) Atrial fibrillation Assessment/Plan: Chronic atrial fibrillation: Ventricular rate is well controlled. Continue metoprolol Continue warfarin to keep INR 2-3. Code(s): I48.91 - UNSPECIFIED ATRIAL FIBRILLATION (2) CHF (congestive heart failure) Assessment/Plan: chronic diastolic chf. I doubt that this is the cause of her severe pulm htn. BP controlled. Losartan, Norvasc and hydralazine were discontinued. Continue Metoprolol. Code(s): I50.9 - HEART FAILURE, UNSPECIFIED (3) Pulmonary hypertension Assessment/Plan: Acute on chronic diastolic CHF, right heart failure and severe pulmonary hypertension. Continue IV Lasix to 80 mg q12h to keep Os > Is. Monitor renal function and electrolytes. Daily weight. Pulmonary evaluation appreciated. Severe obstructive sleep apnea noted. Her Echocardiogram is c/w Cor Pulmonale which is probably the cause of her ascites. Unclear etiology of cor pulmonale. Consider Duplex and PE workup as well. Code(s): I27.20 - PULMONARY HYPERTENSION, UNSPECIFIED Assessment/Plan 1) CHF: Acute on chronic diastolic CHF, right heart failure and severe pulmonary hypertension. Continue IV Lasix to 80 mg q12h to keep Os > Is. Monitor renal function and electrolytes. Daily weight. Pulmonary evaluation appreciated. Severe obstructive sleep apnea noted. Her Echocardiogram is c/w Cor Pulmonale which is probably the cause of her ascites. Unclear etiology of cor pulmonale. Consider Duplex and PE workup as well. 2) Chronic atrial fibrillation: Ventricular rate is well controlled. Continue metoprolol Continue warfarin to keep INR 2-3. 3) HTN: BP controlled. Losartan, Norvasc and hydralazine were discontinued. Continue Metoprolol.
--- NOTE | 2017-11-26 17:13 | PN ---
Physical Exam: SUBJECTIVE: Patient seen and examined. She used BiPAP x 4 hrs last night. This morning she was more alert but now she is drowsy. OBJECTIVE: Vital Signs Period Temp Pulse Resp BP Sys/Stevens Pulse Ox Last 24 Hr 97.7 F-99 F 65-83 20-20 115-144/52-70 93-95 GENERAL: The patient is drowsy but arousable, in no acute distress. LUNGS: Breath sounds diminished at bases. HEART: Irregularly irregular. ABDOMEN: Obese, soft, nontender, distended, normoactive bowel sounds, no guarding, no rebound, no hepatosplenomegaly, no masses. EXTREMITIES: 2+ pulses, warm, well-perfused, 1+ edema. Laboratory Results - last 24 hr 11/25/17 11/26/17 11/26/17 17:00 06:50 06:57 WBC 4.8 RBC 4.20 Hgb 10.7 Hct 34.4 MCV 81.9 MCH 25.6 L MCHC 31.3 L RDW 17.2 H Plt Count 172 MPV 8.5 Neutrophils % 72.8 Lymphocytes % 13.1 Monocytes % 8.4 Eosinophils % 3.9 Basophils % 1.8 Puncture Site Left radial ABG pH 7.32 L ABG pCO2 at Pt Temp 60.5 H* ABG pO2 at Pt Temp 126.0 H D ABG HCO3 30.6 H ABG O2 Sat (Measured) 98.9 ABG O2 Content 14.9 L ABG Base Excess 3.8 H Memo Test Positive O2 Delivery Device Bipap Oxygen Flow Rate 40% Vent Mode S/t Vent Rate 16 Pressure Support Vent 12/5 Sodium 141 Potassium 4.8 Chloride 105 Carbon Dioxide 32 Anion Gap 4 L BUN 50 H Creatinine 1.8 H Creat Clearance w eGFR 27.14 Random Glucose 125 H Calcium 8.1 L Phosphorus Magnesium Total Bilirubin 0.6 D AST 20 ALT 20 Alkaline Phosphatase 128 H Total Protein 6.0 L Albumin 3.0 L 11/26/17 06:57 WBC RBC Hgb Hct MCV MCH MCHC RDW Plt Count MPV Neutrophils % Lymphocytes % Monocytes % Eosinophils % Basophils % Puncture Site ABG pH ABG pCO2 at Pt Temp ABG pO2 at Pt Temp ABG HCO3 ABG O2 Sat (Measured) ABG O2 Content ABG Base Excess Memo Test O2 Delivery Device Oxygen Flow Rate Vent Mode Vent Rate Pressure Support Vent Sodium 144 Potassium 4.6 Chloride 104 Carbon Dioxide 30 Anion Gap 10 BUN 45 H Creatinine 1.6 H Creat Clearance w eGFR Random Glucose 124 H Calcium 8.6 Phosphorus 3.7 Magnesium 2.4 Total Bilirubin AST ALT Alkaline Phosphatase Total Protein Albumin Active Medications Generic Name Dose Route Start Last Admin Trade Name Freq PRN Reason Stop Dose Admin Acetaminophen 650 mg 11/21/17 11:08 11/26/17 12:19 Tylenol - PO 650 mg Q4H PRN Administration PAIN LEVEL 1-5 Allopurinol 300 mg 11/21/17 10:00 11/26/17 10:19 Zyloprim - PO 300 mg DAILY [facility] Administration Atorvastatin Calcium 20 mg 11/20/17 22:00 11/25/17 21:12 Lipitor - PO 20 mg HS [facility] Administration Furosemide 80 mg 11/24/17 06:00 11/26/17 15:50 Lasix Injection - IVPUSH 80 mg BID@0600,1400 [facility] Administration Methimazole 5 mg 11/21/17 10:00 11/26/17 10:19 Tapazole - PO 5 mg DAILY [facility] Administration Metoprolol Succinate 100 mg 11/20/17 22:00 11/26/17 10:19 Toprol Xl - PO 100 mg BID [facility] Administration Polyethylene Glycol 17 gm 11/21/17 14:00 11/26/17 15:51 Miralax (For Daily Use) - PO 17 grams TID [facility] Administration Warfarin Sodium 6 mg 11/24/17 18:00 11/25/17 17:11 Coumadin - PO 6 mg DAILY@1800 [facility] Administration ASSESSMENT/PLAN: 1. Acute metabolic encephalopathy secondary to acute hypercapnic respiratory failure with respiratory acidosis - Had improvement with BiPAP - Continue BiPAP while asleep and as needed 2. Acute diastolic and right sided heart failure - Continue Lasix IV - s/p paracentesis for ascites 11/24 - Monitor I&O, weight (increased 0.8 kg since yesterday) - Oxygen to maintain saturation>90% 3. Chronic cor pulmonale secondary to severe pulmonary HTN - Venous dopplers to evaluate for DVT (unable to do chest CTA to evaluate for PE secondary to respiratory status and elevated creatinine) 4. Permanent atrial fibrillation - Rate controlled - Continue Toprol XL, Coumadin 5. HTN - Continue Toprol XL 6. Hyperthyroidism - Continue Tapazole 7. Obesity 8. Probable OFELIA - Continue BiPAP at night 9. Acute kidney injury, probable stage 3 CKD - Creatinine stable Visit type - Emergency Visit Emergency Visit: Yes ED Registration Date: 11/20/17 Care time: The patient presented to the Emergency Department on the above date and was hospitalized for further evaluation of their emergent condition. - New Patient This patient is new to me today: No - Critical Care Critical Care patient: No - Discharge Referral Referred to [facility] Med P.C.: No
[2017-11-26] MEDS: WARFARIN NA 3 MG TABLET PO SCH (17:49)
[2017-11-26] MEDS: ATORVASTATIN CA 20 MG TABLET (FP) PO SCH (22:29)
[2017-11-27] MEDS: FUROSEMIDE 40 MG/4 ML INJECTABLE VIAL IVPUSH SCH ×2 (06:38→14:46)
[2017-11-27] MEDS: POLYETHYLENE GLYCOL 3350 119 GM BTL PO SCH ×3 (06:38→21:45)
[2017-11-27 07:06] LABS: ARTERIAL BLD GAS O2 SATURATION 97.1 % (90-98.9); ARTERIAL BLOOD GAS BASE EXCESS 4.8 meq/l (-2-2); ARTERIAL BLOOD GAS PCO2 52.7 mmHg (35-45); ARTERIAL BLOOD GAS PO2 85.7 mmHg (70-100); ARTERIAL BLOOD GAS pH 7.38 (7.35-7.45)
[2017-11-27 07:13] LABS: ALLENS TEST POSITIVE
[2017-11-27 07:23] LABS: ANION GAP 9 (8-16); BLOOD UREA NITROGEN 47 mg/dL (7-18); CHLORIDE 102 mmol/L (98-107); CO2 30 mmol/L (21-32); GLUCOSE,RANDOM 115 mg/dL (74-106); POTASSIUM 4.7 mmol/L (3.5-5.1); SODIUM 141 mmol/L (136-145)
[2017-11-27 07:25] LABS: CREATININE 1.5 mg/dL (0.55-1.02); MAGNESIUM 2.4 mg/dL (1.8-2.4)
[2017-11-27 07:42] LABS: BASO % 1.1 % (0-2.0); EOS % 4.7 % (0-4.5); HEMATOCRIT 34.9 % (32.4-45.2); HEMOGLOBIN 11.1 GM/dL (10.7-15.3); LYMPH % 12.4 % (8-40); MCH 25.9 pg (25.7-33.7); MCHC 31.7 g/dl (32.0-36.0); MEAN CELL VOLUME 81.8 fl (80-96); MEAN PLT VOLUME 8.9 fl (7.5-11.1); MONO % 9.1 % (3.8-10.2); NEUT % 72.7 % (42.8-82.8); PLATELET COUNT 188 K/MM3 (134-434); RBC 4.27 M/mm3 (3.60-5.2); RDW 17.4 % (11.6-15.6); WHITE BLOOD COUNT 5.9 K/mm3 (4.0-10.0)
[2017-11-27 07:50] LABS: INR 1.6 (0.82-1.09); PROTHROMBIN TIME (PATIENT) 18.1 SEC (9.98-11.88)
[2017-11-27] MEDS ORDERED: WARFARIN NA 3 MG TABLET PO SCH (10:03)
--- NOTE | 2017-11-27 10:13 | PN ---
Progress Note, Physician - Current Medication List Current Medications: Active Medications Acetaminophen (Tylenol -) 650 mg PO Q4H PRN PRN Reason: PAIN LEVEL 1-5 Last Admin: 11/26/17 12:19 Dose: 650 mg Allopurinol (Zyloprim -) 300 mg PO DAILY [facility] Last Admin: 11/26/17 10:19 Dose: 300 mg Atorvastatin Calcium (Lipitor -) 20 mg PO HS [facility] Last Admin: 11/26/17 22:29 Dose: 20 mg Furosemide (Lasix Injection -) 80 mg IVPUSH BID@0600,1400 [facility] Last Admin: 11/27/17 06:38 Dose: 80 mg Methimazole (Tapazole -) 5 mg PO DAILY [facility] Last Admin: 11/26/17 10:19 Dose: 5 mg Metoprolol Succinate (Toprol Xl -) 100 mg PO BID [facility] Last Admin: 11/26/17 22:29 Dose: 100 mg Polyethylene Glycol (Miralax (For Daily Use) -) 17 gm PO TID [facility] Last Admin: 11/27/17 06:38 Dose: 17 grams Warfarin Sodium (Coumadin -) 7 mg PO DAILY@1800 [facility] - Objective Vital Signs: Vital Signs Temperature 97.4 F L 11/27/17 06:00 Pulse Rate 80 11/27/17 06:00 Respiratory Rate 20 11/27/17 06:00 Blood Pressure 157/84 11/27/17 06:00 O2 Sat by Pulse Oximetry (%) 100 11/26/17 21:00 Constitutional: Yes: No Distress, Calm Eyes: Yes: Conjunctiva Clear, EOM Intact HENT: Yes: Atraumatic, Normocephalic Neck: Yes: Trachea Midline Cardiovascular: Yes: Regular Rate and Rhythm, Pulse Irregular Respiratory: Yes: Dullness (bilat bases) Gastrointestinal: Yes: Abdomen, Obese, Ascites Edema: Yes Edema: LLE: 1+, RLE: 1+ Peripheral Pulses WNL: Yes Labs: CBC, BMP 11/27/17 06:30 11/27/17 06:30 INR, PTT INR 1.60 (0.82-1.09) H 11/27/17 06:30 Problem List - Problems (1) Heart failure, diastolic, with acute decompensation Code(s): I50.33 - ACUTE ON CHRONIC DIASTOLIC (CONGESTIVE) HEART FAILURE (2) Permanent atrial fibrillation Code(s): I48.2 - CHRONIC ATRIAL FIBRILLATION (3) Cor pulmonale (chronic) Code(s): I27.81 - COR PULMONALE (CHRONIC) (4) Hyperthyroidism Code(s): E05.90 - THYROTOXICOSIS, UNSP WITHOUT THYROTOXIC CRISIS OR STORM (5) Acute kidney injury Code(s): N17.9 - ACUTE KIDNEY FAILURE, UNSPECIFIED (6) Chronic venous stasis dermatitis Code(s): I87.2 - VENOUS INSUFFICIENCY (CHRONIC) (PERIPHERAL)
[2017-11-27] MEDS: ALLOPURINOL 300 MG TABLET (FP) PO SCH (10:48)
[2017-11-27] MEDS: METHIMAZOLE 5 MG TABLET (FP) PO SCH (10:48)
--- NOTE | 2017-11-27 11:27 | PN ---
Progress Note, Physician History of Present Illness: PULMONARY ALERT,LESS DYSPNEIC,OOB-CHAIR - Current Medication List Current Medications: Active Medications Acetaminophen (Tylenol -) 650 mg PO Q4H PRN PRN Reason: PAIN LEVEL 1-5 Last Admin: 11/26/17 12:19 Dose: 650 mg Allopurinol (Zyloprim -) 300 mg PO DAILY [facility] Last Admin: 11/27/17 10:48 Dose: 300 mg Atorvastatin Calcium (Lipitor -) 20 mg PO HS [facility] Last Admin: 11/26/17 22:29 Dose: 20 mg Furosemide (Lasix Injection -) 80 mg IVPUSH BID@0600,1400 [facility] Last Admin: 11/27/17 06:38 Dose: 80 mg Methimazole (Tapazole -) 5 mg PO DAILY [facility] Last Admin: 11/27/17 10:48 Dose: 5 mg Metoprolol Succinate (Toprol Xl -) 100 mg PO BID [facility] Last Admin: 11/27/17 10:48 Dose: 100 mg Polyethylene Glycol (Miralax (For Daily Use) -) 17 gm PO TID [facility] Last Admin: 11/27/17 06:38 Dose: 17 grams Warfarin Sodium 2 mg/ Warfarin (Sodium 5 mg) 7 mg PO DAILY@1800 [facility] - Objective Vital Signs: Vital Signs Temperature 97.4 F L 11/27/17 06:00 Pulse Rate 80 11/27/17 06:00 Respiratory Rate 20 11/27/17 06:00 Blood Pressure 157/84 11/27/17 06:00 O2 Sat by Pulse Oximetry (%) 100 11/26/17 21:00 Constitutional: Yes: Well Nourished, Calm Eyes: Yes: WNL HENT: Yes: WNL Neck: Yes: WNL Cardiovascular: Yes: Pulse Irregular, S1, S2 Respiratory: Yes: Rales (BIBASILAR CRACKLES) Gastrointestinal: Yes: Normal Bowel Sounds, Soft Extremities: Yes: WNL Edema: Yes Labs: CBC, BMP 11/27/17 06:30 11/27/17 06:30 INR, PTT INR 1.60 (0.82-1.09) H 11/27/17 06:30 Problem List - Problems (1) Diastolic heart failure Code(s): I50.30 - UNSPECIFIED DIASTOLIC (CONGESTIVE) HEART FAILURE (2) Abdominal distention Code(s): R14.0 - ABDOMINAL DISTENSION (GASEOUS) (3) Acute kidney injury Code(s): N17.9 - ACUTE KIDNEY FAILURE, UNSPECIFIED (4) Ascites Code(s): R18.8 - OTHER ASCITES Qualifiers: Ascites type: other type Qualified Code(s): R18.8 - Other ascites (5) CHF (congestive heart failure) Code(s): I50.9 - HEART FAILURE, UNSPECIFIED (6) Chronic venous stasis dermatitis Code(s): I87.2 - VENOUS INSUFFICIENCY (CHRONIC) (PERIPHERAL) (7) Cor pulmonale (chronic) Code(s): I27.81 - COR PULMONALE (CHRONIC) (8) Pulmonary hypertension Code(s): I27.20 - PULMONARY HYPERTENSION, UNSPECIFIED (9) Shortness of breath Code(s): R06.02 - SHORTNESS OF BREATH (10) Venous stasis ulcer Code(s): I83.009 - VARICOSE VEINS OF UNSP LOWER EXTREMITY W ULCER OF UNSP SITE; L97.909 - NON-PRS CHRONIC ULC UNSP PRT OF UNSP LOW LEG W UNSP SEVERITY Assessment/Plan IMP DYSPNEA ACUTE DIASTOLIC HF SEVERE PULMONARY HTN COR PULMONALE ASCITES SECONDARY TO ABOVE AFIB HTN HLD PVD OBESILY SLOANE SEVERE SLEEP APNEA AHI 57.2 PLAN IV LASIX O2 DAILY WTS MONITOR LYTES,RENAL FUNCTION FORMAL SLEEP STUDIES OUTPATIENT PFTS OUTPATIENT CHECK O2 SAT AT REST AND POST EXERCISE ON PRIOR TO DISCHARGE AC CTD W/U OUTPATIENT DR BOATENG Problem List - Problems (1) Diastolic heart failure Code(s): I50.30 - UNSPECIFIED DIASTOLIC (CONGESTIVE) HEART FAILURE (2) Abdominal distention Code(s): R14.0 - ABDOMINAL DISTENSION (GASEOUS) (3) Acute kidney injury Code(s): N17.9 - ACUTE KIDNEY FAILURE, UNSPECIFIED (4) Ascites Code(s): R18.8 - OTHER ASCITES Qualifiers: Ascites type: other type Qualified Code(s): R18.8 - Other ascites (5) CHF (congestive heart failure) Code(s): I50.9 - HEART FAILURE, UNSPECIFIED (6) Chronic venous stasis dermatitis Code(s): I87.2 - VENOUS INSUFFICIENCY (CHRONIC) (PERIPHERAL) (7) Cor pulmonale (chronic) Code(s): I27.81 - COR PULMONALE (CHRONIC) (8) Pulmonary hypertension Code(s): I27.20 - PULMONARY HYPERTENSION, UNSPECIFIED (9) Shortness of breath Code(s): R06.02 - SHORTNESS OF BREATH (10) Venous stasis ulcer Code(s): I83.009 - VARICOSE VEINS OF UNSP LOWER EXTREMITY W ULCER OF UNSP SITE; L97.909 - NON-PRS CHRONIC ULC UNSP PRT OF UNSP LOW LEG W UNSP SEVERITY
--- NOTE | 2017-11-27 14:55 | PATH ---
Cytology Non-Gynecological Report Patient Name: CHUCKIE GOMEZ [facility]. Rec. #: [id number] /Age/Gender: 1935 (Age: 81) / F Account: [id number] Location: [address] [place] [address]/[facility] Taken: 11/24/2017 Received: 11/24/2017 Reported: 11/27/2017 Physicians: Eddy Ware M.D. Specimen(s) Received A: ABDOMINAL FLUID B: ABDOMINAL FLUID Clinical History Ascites, SLOANE Final Diagnosis A & B. ABDOMINAL FLUID, PARACENTESIS: SATISFACTORY FOR EVALUATION. NO MALIGNANT CELLS IDENTIFIED. MESOTHELIAL CELLS, SCATTERED NEUTROPHILS AND LYMPHOCYTES PRESENT. Electronically Signed Valentine Jensen M.D. Gross Description A. Approximately 50 cc of yellow fluid received fixed in 50% alcohol. Two cytofunnels and one cellblock prepared. B. Approximately 1800 cc of yellow fluid received fresh. Two cytofunnels and one cellblock prepared.
--- NOTE | 2017-11-27 15:12 | PN ---
Progress Note, Physician Chief Complaint: Cardiology FU No events. History of Present Illness: 81 year-old woman with a PMHx of atrial fibrillation on Warfarin, HTN, HLD, venous stasis with ulcer and prior bleeding varicose vein (seen by Dr. Prabhjot Long), chronic constipation, admitted 11/20/2017 with progressive SOB, leg pain and abdominal distention. She was found to have acute diastolic CHF, severe pulmonary hypertension and cor pulmonale. She has been treated with IV Lasix. S/ p paracentesis with 2100 ml serous fluid removal. Severe obstructive sleep apnea noted. ECG 11/20/2017 showed atrial fibrillation with controlled VR at 74 BPM with IVCD and inferior and lateral ST and T abnormalities. CT chest and abdomen 11/20/2017 revealed cardiomegaly, CHF, pleural effusion and free fluid in the abdomen. Echo 11/21/2017: LV is "D" shape with paradoxical septal motion and normal LV systolic function. RV is dilated and hypokinetic. Severe LA and RA dilatation. Severe pulmonary hypertension. PASP = 106 mmHg. - Current Medication List Current Medications: Active Medications Acetaminophen (Tylenol -) 650 mg PO Q4H PRN PRN Reason: PAIN LEVEL 1-5 Last Admin: 11/26/17 12:19 Dose: 650 mg Allopurinol (Zyloprim -) 300 mg PO DAILY [facility] Last Admin: 11/27/17 10:48 Dose: 300 mg Atorvastatin Calcium (Lipitor -) 20 mg PO HS [facility] Last Admin: 11/26/17 22:29 Dose: 20 mg Furosemide (Lasix Injection -) 80 mg IVPUSH BID@0600,1400 [facility] Last Admin: 11/27/17 14:46 Dose: 80 mg Methimazole (Tapazole -) 5 mg PO DAILY [facility] Last Admin: 11/27/17 10:48 Dose: 5 mg Metoprolol Succinate (Toprol Xl -) 100 mg PO BID [facility] Last Admin: 11/27/17 10:48 Dose: 100 mg Polyethylene Glycol (Miralax (For Daily Use) -) 17 gm PO TID [facility] Last Admin: 11/27/17 14:46 Dose: 17 grams Warfarin Sodium 2 mg/ Warfarin (Sodium 5 mg) 7 mg PO DAILY@1800 [facility] - Objective Vital Signs: Vital Signs Temperature 97.8 F 11/27/17 14:00 Pulse Rate 72 11/27/17 14:00 Respiratory Rate 22 11/27/17 14:00 Blood Pressure 136/71 11/27/17 14:00 O2 Sat by Pulse Oximetry (%) 96 11/27/17 09:00 Wgt 213 down from 217lb Constitutional: Yes: Well Nourished, No Distress Eyes: Yes: Conjunctiva Clear, EOM Intact HENT: Yes: Atraumatic, Normocephalic Neck: Yes: Supple, Trachea Midline Cardiovascular: Yes: Pulse Irregular, JVD, S1, S2 Respiratory: Yes: Regular, Rales Gastrointestinal: Yes: Normal Bowel Sounds, Soft, Distention Edema: Yes Edema: LLE: 1+, RLE: 1+ Labs: CBC, BMP 11/27/17 06:30 11/27/17 06:30 INR, PTT INR 1.60 (0.82-1.09) H 11/27/17 06:30 Problem List - Problems (1) Ascites Code(s): R18.8 - OTHER ASCITES Qualifiers: Ascites type: other type Qualified Code(s): R18.8 - Other ascites (2) Atrial fibrillation Code(s): I48.91 - UNSPECIFIED ATRIAL FIBRILLATION (3) CHF (congestive heart failure) Code(s): I50.9 - HEART FAILURE, UNSPECIFIED (4) Cor pulmonale (chronic) Code(s): I27.81 - COR PULMONALE (CHRONIC) (5) Diastolic heart failure Code(s): I50.30 - UNSPECIFIED DIASTOLIC (CONGESTIVE) HEART FAILURE (6) Heart failure, diastolic, with acute decompensation Code(s): I50.33 - ACUTE ON CHRONIC DIASTOLIC (CONGESTIVE) HEART FAILURE Assessment/Plan 81 F chronic Afib on AC, severe Right sided volume overload with ascities and severe pulmonary HTN with diastolic heart failure and severe OFELIA. Her weight has been decreasing with diuresis although I/O do not reflect net negative UO, she has noted significnat subjective diuresis. 1. Monitor UO closely. Goal UO of 3L daily. Check weight daily. 2. Using nocturnal CPAP is tan. 3. Continue IV diuretics. 4. Would ultimately get VQ scan or CT to exclude chronic PE after further diuresis (or as out patient). She may benefit from right heart categorization in the future. 5. Rate controlled Afib. On AC.
[2017-11-27] MEDS ORDERED: WARFARIN NA 2 MG TABLET (UD) ONE (17:29)
[2017-11-27] MEDS ORDERED: WARFARIN NA 5 MG TABLET (UD) ONE (17:29)
[2017-11-27] MEDS: WARFARIN NA 2 MG, WARFARIN NA 5 MG PO SCH (17:30)
--- NOTE | 2017-11-27 18:25 | PN ---
Progress Note (short form) - Note Progress Note: Renal follow up for SLOANE Pt seen and examined at the bedside sitting in chair reports feeling better making urine has some abd distension no pain no sob, cp Vital Signs Temperature 97.8 F 11/27/17 14:00 Pulse Rate 72 11/27/17 14:00 Respiratory Rate 22 11/27/17 14:00 Blood Pressure 136/71 11/27/17 14:00 O2 Sat by Pulse Oximetry (%) 98 11/27/17 18:07 Intake & Output 11/24/17 11/25/17 11/26/17 11/27/17 23:59 23:59 23:59 23:59 Intake Total 360 850 560 120 Output Total 400 0 Balance 360 450 560 120 Weight 95.821 kg 96.615 kg 96.615 kg NAD Dec BS at lung bases soft NT/ND, + ascities No LE edema CBC, BMP 11/27/17 06:30 11/27/17 06:30 Current Medications Acetaminophen (Tylenol -) 650 mg PO Q4H PRN PRN Reason: PAIN LEVEL 1-5 Last Admin: 11/26/17 12:19 Dose: 650 mg Allopurinol (Zyloprim -) 300 mg PO DAILY [facility] Last Admin: 11/27/17 10:48 Dose: 300 mg Atorvastatin Calcium (Lipitor -) 20 mg PO HS [facility] Last Admin: 11/26/17 22:29 Dose: 20 mg Furosemide (Lasix Injection -) 80 mg IVPUSH BID@0600,1400 [facility] Last Admin: 11/27/17 14:46 Dose: 80 mg Methimazole (Tapazole -) 5 mg PO DAILY [facility] Last Admin: 11/27/17 10:48 Dose: 5 mg Metoprolol Succinate (Toprol Xl -) 100 mg PO BID [facility] Last Admin: 11/27/17 10:48 Dose: 100 mg Polyethylene Glycol (Miralax (For Daily Use) -) 17 gm PO TID [facility] Last Admin: 11/27/17 14:46 Dose: 17 grams Warfarin Sodium 2 mg/ Warfarin (Sodium 5 mg) 7 mg PO DAILY@1800 [facility] Last Admin: 11/27/17 17:30 Dose: 7 mg 81 year old woman with PMhx of Afib on Coumadin, HTN, Hyperlipidemia, Venous stasis, ? CKD who presented with complaints of worsening SOB, and Abd distension and admitted for Diastolic HF, Abd ascities and found to have Cr of 1.8. #Acute Renal Failure with possible history of CKD in setting of HF/Asciteis Urine studies consistent with pre-renal injury/Cardio-renal syndrome Renal function is overall improved Pt on Lasix 80mg IV BID (since 11/24), weights unchanged exact I and O not recorded, will ask for strict I and O titrate diuretics per cardiology Trend BUN/Cr and electrolytes daily Low salt diet no overt proteinura to be another cause of fluid accumulation will continue to monitor Denis Boogie DO
[2017-11-27] MEDS: ATORVASTATIN CA 20 MG TABLET (FP) PO SCH (20:59)
[2017-11-27] MEDS: ACETAMINOPHEN 325 MG TABLET (FP) PO PRN (20:59)
--- NOTE | 2017-11-27 21:52 | PN ---
GI Progress Note Subjective: GI NOte: Has lost about 4 lbs. Still feels distended. It doesn't appear that any ascitic fluid was sent for cytology but C/S reveals no growth.. - Objective Vital Signs: Vital Signs Temperature 97.3 F L 11/27/17 18:00 Pulse Rate 76 11/27/17 18:00 Respiratory Rate 20 11/27/17 18:00 Blood Pressure 148/94 11/27/17 18:00 O2 Sat by Pulse Oximetry (%) 95 11/27/17 20:21 Laboratory Tests 11/22/17 11/24/17 11/27/17 06:05 07:05 06:30 BUN 50 H 47 H Creatinine 1.8 H 1.5 H CODIE Screen Negative Hep C Ab Diagnostic <0.1 Constitutional: Anxious ...Auscultate: Yes: Normoactive Bowel Sounds ...Palpate: Yes: Soft, Other (nontender) Labs: CBC, BMP 11/27/17 06:30 11/27/17 06:30 INR, PTT INR 1.60 (0.82-1.09) H 11/27/17 06:30 Assessment/Plan Ascites due to right heart failure diuresing slowly. Problem List - Problems (1) Ascites Code(s): R18.8 - OTHER ASCITES Qualifiers: Ascites type: other type Qualified Code(s): R18.8 - Other ascites (2) Cor pulmonale (chronic) Code(s): I27.81 - COR PULMONALE (CHRONIC) (3) Pulmonary hypertension Code(s): I27.20 - PULMONARY HYPERTENSION, UNSPECIFIED (4) Constipation Code(s): K59.00 - CONSTIPATION, UNSPECIFIED
[2017-11-28] MEDS: FUROSEMIDE 40 MG/4 ML INJECTABLE VIAL IVPUSH SCH ×2 (05:33→14:49)
[2017-11-28] MEDS: POLYETHYLENE GLYCOL 3350 119 GM BTL PO SCH ×3 (05:33→22:07)
[2017-11-28 08:19] LABS: BASO % 1.5 % (0-2.0); EOS % 5.7 % (0-4.5); HEMATOCRIT 35.9 % (32.4-45.2); HEMOGLOBIN 11.2 GM/dL (10.7-15.3); LYMPH % 13.5 % (8-40); MCH 25.7 pg (25.7-33.7); MCHC 31.3 g/dl (32.0-36.0); MEAN PLT VOLUME 8.8 fl (7.5-11.1); MONO % 9.1 % (3.8-10.2); NEUT % 70.2 % (42.8-82.8); PLATELET COUNT 181 K/MM3 (134-434); RBC 4.38 M/mm3 (3.60-5.2); RDW 17.4 % (11.6-15.6); WHITE BLOOD COUNT 5.6 K/mm3 (4.0-10.0)
--- NOTE | 2017-11-28 08:36 | PN ---
Progress Note, Physician - Current Medication List Current Medications: Active Medications Acetaminophen (Tylenol -) 650 mg PO Q4H PRN PRN Reason: PAIN LEVEL 1-5 Last Admin: 11/27/17 20:59 Dose: 650 mg Allopurinol (Zyloprim -) 300 mg PO DAILY [facility] Last Admin: 11/27/17 10:48 Dose: 300 mg Atorvastatin Calcium (Lipitor -) 20 mg PO HS [facility] Last Admin: 11/27/17 20:59 Dose: 20 mg Furosemide (Lasix Injection -) 80 mg IVPUSH BID@0600,1400 [facility] Last Admin: 11/28/17 05:33 Dose: 80 mg Methimazole (Tapazole -) 5 mg PO DAILY [facility] Last Admin: 11/27/17 10:48 Dose: 5 mg Metolazone (Zaroxolyn -) 5 mg PO DAILY [facility] Metoprolol Succinate (Toprol Xl -) 100 mg PO BID [facility] Last Admin: 11/27/17 20:59 Dose: 100 mg Polyethylene Glycol (Miralax (For Daily Use) -) 17 gm PO TID [facility] Last Admin: 11/28/17 05:33 Dose: 17 grams Warfarin Sodium 2 mg/ Warfarin (Sodium 5 mg) 7 mg PO DAILY@1800 [facility] Last Admin: 11/27/17 17:30 Dose: 7 mg - Objective Vital Signs: Vital Signs Temperature 98.4 F 11/28/17 08:00 Pulse Rate 76 11/28/17 08:00 Respiratory Rate 18 11/28/17 08:00 Blood Pressure 125/68 11/28/17 08:00 O2 Sat by Pulse Oximetry (%) 95 11/27/17 20:21 Labs: INR, PTT INR 1.60 (0.82-1.09) H 11/27/17 06:30 Problem List - Problems (1) CHF (congestive heart failure) Assessment/Plan: -IV LASIX add zaroxyln - s/p paracentesis for ascites 11/24 - Monitor I&O, weight (increased since yesterday) - Oxygen to maintain saturation>90% Code(s): I50.9 - HEART FAILURE, UNSPECIFIED (2) Ascites Assessment/Plan: IV LASIX GI CONSULT NOTED S/P PARACENTESIS CT NOTED Code(s): R18.8 - OTHER ASCITES Qualifiers: Ascites type: other type Qualified Code(s): R18.8 - Other ascites (3) Abdominal distention Assessment/Plan: ABOVE Code(s): R14.0 - ABDOMINAL DISTENSION (GASEOUS) (4) Acute kidney injury Assessment/Plan: DUE TO DIURETICS CONTINUE WITH LASIX MONITOR Code(s): N17.9 - ACUTE KIDNEY FAILURE, UNSPECIFIED (5) Venous stasis ulcer Code(s): I83.009 - VARICOSE VEINS OF UNSP LOWER EXTREMITY W ULCER OF UNSP SITE; L97.909 - NON-PRS CHRONIC ULC UNSP PRT OF UNSP LOW LEG W UNSP SEVERITY (6) Anemia Assessment/Plan: GI W/U ONCE CARDIAC ISSUE IMPROVE Code(s): D64.9 - ANEMIA, UNSPECIFIED (7) Atrial fibrillation Assessment/Plan: ON AC Code(s): I48.91 - UNSPECIFIED ATRIAL FIBRILLATION (8) Cor pulmonale (chronic) Assessment/Plan: PULM ON BOARD BIPAP CONSIDER CATH Code(s): I27.81 - COR PULMONALE (CHRONIC)
[2017-11-28 08:42] LABS: ANION GAP 4 (8-16); BLOOD UREA NITROGEN 42 mg/dL (7-18); CALCIUM 8.4 mg/dL (8.5-10.1); CHLORIDE 103 mmol/L (98-107); CO2 33 mmol/L (21-32); CREATININE 1.4 mg/dL (0.55-1.02); GLUCOSE,RANDOM 102 mg/dL (74-106); PHOSPHOROUS 3.9 mg/dL (2.5-4.9); POTASSIUM 4.5 mmol/L (3.5-5.1); SODIUM 140 mmol/L (136-145)
[2017-11-28 08:52] LABS: INR 2.07 (0.82-1.09); PROTHROMBIN TIME (PATIENT) 23.4 SEC (9.98-11.88)
[2017-11-28] MEDS: METHIMAZOLE 5 MG TABLET (FP) PO SCH (09:44)
[2017-11-28] MEDS: ALLOPURINOL 300 MG TABLET (FP) PO SCH (09:44)
--- NOTE | 2017-11-28 09:57 | PN ---
Progress Note, Physician Chief Complaint: Cardiology FU No events. History of Present Illness: 81 year-old woman with a PMHx of atrial fibrillation on Warfarin, HTN, HLD, venous stasis with ulcer and prior bleeding varicose vein (seen by Dr. Prabhjot Long), chronic constipation, admitted 11/20/2017 with SOB, leg pain and abdominal distention. She was found to have diastolic CHF, severe pulmonary hypertension and cor pulmonale. She has been treated with IV Lasix. S/p paracentesis with 2100 ml serous fluid removal. Severe obstructive sleep apnea noted. ECG 11/20/2017 showed atrial fibrillation with controlled VR at 74 BPM with IVCD and inferior and lateral ST and T abnormalities. CT chest and abdomen 11/20/2017 revealed cardiomegaly, CHF, pleural effusion and free fluid in the abdomen. Echo 11/21/2017: LV is "D" shape with paradoxical septal motion and normal LV systolic function. RV is dilated and hypokinetic. Severe LA and RA dilatation. Severe pulmonary hypertension. PASP = 106 mmHg. - Current Medication List Current Medications: Active Medications Acetaminophen (Tylenol -) 650 mg PO Q4H PRN PRN Reason: PAIN LEVEL 1-5 Last Admin: 11/27/17 20:59 Dose: 650 mg Allopurinol (Zyloprim -) 300 mg PO DAILY [facility] Last Admin: 11/28/17 09:44 Dose: 300 mg Atorvastatin Calcium (Lipitor -) 20 mg PO HS [facility] Last Admin: 11/27/17 20:59 Dose: 20 mg Furosemide (Lasix Injection -) 80 mg IVPUSH BID@0600,1400 [facility] Last Admin: 11/28/17 05:33 Dose: 80 mg Methimazole (Tapazole -) 5 mg PO DAILY [facility] Last Admin: 11/28/17 09:44 Dose: 5 mg Metolazone (Zaroxolyn -) 5 mg PO DAILY@1330 [facility] Metoprolol Succinate (Toprol Xl -) 100 mg PO BID [facility] Last Admin: 11/28/17 09:44 Dose: 100 mg Polyethylene Glycol (Miralax (For Daily Use) -) 17 gm PO TID [facility] Last Admin: 11/28/17 05:33 Dose: 17 grams Warfarin Sodium 2 mg/ Warfarin (Sodium 5 mg) 7 mg PO DAILY@1800 [facility] Last Admin: 11/27/17 17:30 Dose: 7 mg - Objective Vital Signs: Vital Signs Temperature 98.4 F 11/28/17 08:00 Pulse Rate 76 11/28/17 08:00 Respiratory Rate 18 11/28/17 08:00 Blood Pressure 125/68 11/28/17 08:00 O2 Sat by Pulse Oximetry (%) 95 11/27/17 20:21 Wgt 216 Constitutional: Yes: No Distress, Calm Eyes: Yes: Conjunctiva Clear HENT: Yes: Normocephalic Neck: Yes: Trachea Midline Cardiovascular: Yes: Pulse Irregular, JVD, S1, S2. No: Murmur Respiratory: Yes: Regular, Rales (at bases) Gastrointestinal: Yes: Normal Bowel Sounds, Distention. No: Tenderness Edema: Yes Edema: LLE: 1+, RLE: 1+ Labs: CBC, BMP 11/28/17 07:35 11/28/17 07:35 INR, PTT INR 2.07 (0.82-1.09) H 11/28/17 07:35 Problem List - Problems (1) Ascites Code(s): R18.8 - OTHER ASCITES Qualifiers: Qualified Code(s): R18.8 - Other ascites (2) Atrial fibrillation Code(s): I48.91 - UNSPECIFIED ATRIAL FIBRILLATION (3) CHF (congestive heart failure) Code(s): I50.9 - HEART FAILURE, UNSPECIFIED (4) Cor pulmonale (chronic) Code(s): I27.81 - COR PULMONALE (CHRONIC) (5) Diastolic heart failure Code(s): I50.30 - UNSPECIFIED DIASTOLIC (CONGESTIVE) HEART FAILURE (6) Heart failure, diastolic, with acute decompensation Code(s): I50.33 - ACUTE ON CHRONIC DIASTOLIC (CONGESTIVE) HEART FAILURE Assessment/Plan 81 F chronic Afib on AC, severe Right sided volume overload with ascities and severe pulmonary HTN with diastolic heart failure and severe OFELIA. Her weight has been decreasing with diuresis although I/O do not reflect net negative UO, she has noted significnat subjective diuresis. 1. Agree with Metolazone. To be given 30 min prior to AM lasix. Continue IV diuretics.Monitor UO closely. Goal UO of 3L daily. Check weight daily. * CKD improved with diuresis. 2. Using nocturnal CPAP is tan. 3. Rate controlled Afib. On AC.
[2017-11-28 10:14] LABS: ALPHA 2 MACROGLOBULINS,QN 217 mg/dL (110-276); ALT(SGPT)P5P 16 IU/L (0-40); CHOLESTEROL TOTAL 102 mg/dL (100-199); GGT= 61 IU/L (0-60); GLUCOSE SERUM 121 mg/dL (65-99)
--- NOTE | 2017-11-28 11:38 | PN ---
Progress Note (short form) - Note Progress Note: PULMONARY States breathing is improving. No cough or wheezing. No chest pain. Last Vital Signs Temp Pulse Resp BP Pulse Ox 98.4 F 76 18 125/68 95 11/28/17 08:00 11/28/17 08:00 11/28/17 08:00 11/28/17 08:00 11/27/17 20:21 Gen: NAD in chair Heart: irregular Lung: left base rales Abd: softly distended, nontender Ext: + edema CBC, BMP 11/28/17 07:35 11/28/17 07:35 INR, PTT INR 2.07 (0.82-1.09) H 11/28/17 07:35 Active Medications Acetaminophen (Tylenol -) 650 mg PO Q4H PRN PRN Reason: PAIN LEVEL 1-5 Last Admin: 11/27/17 20:59 Dose: 650 mg Allopurinol (Zyloprim -) 300 mg PO DAILY [facility] Last Admin: 11/28/17 09:44 Dose: 300 mg Atorvastatin Calcium (Lipitor -) 20 mg PO HS [facility] Last Admin: 11/27/17 20:59 Dose: 20 mg Furosemide (Lasix Injection -) 80 mg IVPUSH BID@0600,1400 [facility] Last Admin: 11/28/17 05:33 Dose: 80 mg Methimazole (Tapazole -) 5 mg PO DAILY [facility] Last Admin: 11/28/17 09:44 Dose: 5 mg Metolazone (Zaroxolyn -) 5 mg PO DAILY@1330 [facility] Metoprolol Succinate (Toprol Xl -) 100 mg PO BID [facility] Last Admin: 11/28/17 09:44 Dose: 100 mg Polyethylene Glycol (Miralax (For Daily Use) -) 17 gm PO TID [facility] Last Admin: 11/28/17 05:33 Dose: 17 grams Warfarin Sodium 2 mg/ Warfarin (Sodium 5 mg) 7 mg PO DAILY@1800 [facility] Last Admin: 11/27/17 17:30 Dose: 7 mg A/P Acute on Chronic Diastolic Heart Failure Severe Pulmonary HTN Atrial Fibrillation Ascites Acute Kidney Injury improving HTN Hyperlipidemia OFELIA - continue lasix, zaroxolyn - monitor urine output, creatinine - daily weights - O2 to keep SpO2 >90% - rate controlled - continue anticoagulation - PT eval - outpt PFTs
[2017-11-28] MEDS ORDERED: METOLAZONE 5 MG TABLET PO SCH (13:30)
[2017-11-28] MEDS: ACETAMINOPHEN 325 MG TABLET (FP) PO PRN (16:52)
[2017-11-28] MEDS ORDERED: WARFARIN NA 5 MG TABLET (UD) ONE (17:49)
[2017-11-28] MEDS ORDERED: WARFARIN NA 2 MG TABLET (UD) ONE (17:49)
[2017-11-28] MEDS: WARFARIN NA 2 MG, WARFARIN NA 5 MG PO SCH (17:51)
--- NOTE | 2017-11-28 18:12 | PN ---
Progress Note (short form) - Note Progress Note: Renal follow up for SLOANE Pt seen and examined at the bedside sitting in chair has leg swelling no sob, chest pain, abd pain ewing pain in legs because of swelling Vital Signs Temperature 97.5 F L 11/28/17 14:00 Pulse Rate 73 11/28/17 14:00 Respiratory Rate 22 11/28/17 14:00 Blood Pressure 155/79 11/28/17 14:00 O2 Sat by Pulse Oximetry (%) 95 11/28/17 08:00 Intake & Output 11/25/17 11/26/17 11/27/17 11/28/17 23:59 23:59 23:59 23:59 Intake Total 850 560 620 700 Output Total 400 0 600 Balance 450 560 620 100 Weight 95.821 kg 96.615 kg 96.615 kg 98.231 kg NAD Dec BS at lung bases soft NT/ND, + ascities + edema in LE, + tenderness CBC, BMP 11/28/17 07:35 11/28/17 07:35 Current Medications Acetaminophen (Tylenol -) 650 mg PO Q4H PRN PRN Reason: PAIN LEVEL 1-5 Last Admin: 11/28/17 16:52 Dose: 650 mg Allopurinol (Zyloprim -) 300 mg PO DAILY [facility] Last Admin: 11/28/17 09:44 Dose: 300 mg Atorvastatin Calcium (Lipitor -) 20 mg PO HS [facility] Last Admin: 11/27/17 20:59 Dose: 20 mg Furosemide (Lasix Injection -) 80 mg IVPUSH BID@0600,1400 [facility] Last Admin: 11/28/17 14:49 Dose: 80 mg Methimazole (Tapazole -) 5 mg PO DAILY [facility] Last Admin: 11/28/17 09:44 Dose: 5 mg Metolazone (Zaroxolyn -) 5 mg PO DAILY@1330 [facility] Last Admin: 11/28/17 13:42 Dose: 5 mg Metoprolol Succinate (Toprol Xl -) 100 mg PO BID [facility] Last Admin: 11/28/17 09:44 Dose: 100 mg Polyethylene Glycol (Miralax (For Daily Use) -) 17 gm PO TID [facility] Last Admin: 11/28/17 13:46 Dose: 17 grams Warfarin Sodium 2 mg/ Warfarin (Sodium 5 mg) 7 mg PO DAILY@1800 [facility] Last Admin: 11/28/17 17:51 Dose: 7 mg 81 year old woman with PMhx of Afib on Coumadin, HTN, Hyperlipidemia, Venous stasis, ? CKD who presented with complaints of worsening SOB, and Abd distension and admitted for Diastolic HF, Abd ascities and found to have Cr of 1.8. #Acute Renal Failure with possible history of CKD in setting of HF/Asciteis Renal function improving with ongoing diuresis weights and edema remain unchanged continue IV Lasix, Metolazone added today Trend renal function, electrolytes and weights would hold off starting LOCO/ARB until pt has completed IV diuresis Denis Boogie DO
[2017-11-28] MEDS: ATORVASTATIN CA 20 MG TABLET (FP) PO SCH (22:07)
[2017-11-29] MEDS: POLYETHYLENE GLYCOL 3350 119 GM BTL PO SCH ×3 (05:38→21:22)
[2017-11-29] MEDS: FUROSEMIDE 40 MG/4 ML INJECTABLE VIAL IVPUSH SCH ×2 (05:38→13:37)
[2017-11-29 08:44] LABS: BASO % 1.2 % (0-2.0); EOS % 5.3 % (0-4.5); HEMATOCRIT 39.3 % (32.4-45.2); HEMOGLOBIN 12.1 GM/dL (10.7-15.3); LYMPH % 11.8 % (8-40); MCH 25.5 pg (25.7-33.7); MCHC 30.8 g/dl (32.0-36.0); MEAN CELL VOLUME 82.8 fl (80-96); MEAN PLT VOLUME 8.7 fl (7.5-11.1); MONO % 9.5 % (3.8-10.2); NEUT % 72.2 % (42.8-82.8); PLATELET COUNT 198 K/MM3 (134-434); RBC 4.74 M/mm3 (3.60-5.2); RDW 17.5 % (11.6-15.6); WHITE BLOOD COUNT 6.4 K/mm3 (4.0-10.0)
[2017-11-29 08:59] LABS: INR 2.76 (0.82-1.09); PROTHROMBIN TIME (PATIENT) 31.2 SEC (9.98-11.88)
--- NOTE | 2017-11-29 09:04 | PN ---
Progress Note, Physician - Current Medication List Current Medications: Active Medications Acetaminophen (Tylenol -) 650 mg PO Q4H PRN PRN Reason: PAIN LEVEL 1-5 Last Admin: 11/28/17 16:52 Dose: 650 mg Allopurinol (Zyloprim -) 300 mg PO DAILY [facility] Last Admin: 11/28/17 09:44 Dose: 300 mg Atorvastatin Calcium (Lipitor -) 20 mg PO HS [facility] Last Admin: 11/28/17 22:07 Dose: 20 mg Furosemide (Lasix Injection -) 80 mg IVPUSH BID@0600,1400 [facility] Last Admin: 11/29/17 05:38 Dose: 80 mg Methimazole (Tapazole -) 5 mg PO BID [facility] Metolazone (Zaroxolyn -) 5 mg PO DAILY@1330 [facility] Last Admin: 11/28/17 13:42 Dose: 5 mg Metoprolol Succinate (Toprol Xl -) 100 mg PO BID [facility] Last Admin: 11/28/17 22:07 Dose: 100 mg Polyethylene Glycol (Miralax (For Daily Use) -) 17 gm PO TID [facility] Last Admin: 11/29/17 05:38 Dose: 17 grams Warfarin Sodium 2 mg/ Warfarin (Sodium 5 mg) 7 mg PO DAILY@1800 [facility] Last Admin: 11/28/17 17:51 Dose: 7 mg - Objective Vital Signs: Vital Signs Temperature 98.8 F 11/29/17 06:00 Pulse Rate 77 11/29/17 08:48 Respiratory Rate 18 11/29/17 06:00 Blood Pressure 117/54 11/29/17 06:00 O2 Sat by Pulse Oximetry (%) 98 11/29/17 08:48 Cardiovascular: Yes: S1, S2 Respiratory: Yes: Diminished Gastrointestinal: Yes: Normal Bowel Sounds, Soft, Ascites, Distention Edema: Yes Labs: CBC, BMP 11/29/17 07:50 INR, PTT INR 2.07 (0.82-1.09) H 11/28/17 07:35 Problem List - Problems (1) CHF (congestive heart failure) Assessment/Plan: -IV LASIX add zaroxyln bid--if no response consider drip--question if albumin of any benefit - s/p paracentesis for ascites 11/24 - Monitor I&O, weight (increased since yesterday) - Oxygen to maintain saturation>90% Code(s): I50.9 - HEART FAILURE, UNSPECIFIED (2) Ascites Assessment/Plan: IV LASIX GI CONSULT NOTED S/P PARACENTESIS CT NOTED Code(s): R18.8 - OTHER ASCITES Qualifiers: Ascites type: other type Qualified Code(s): R18.8 - Other ascites (3) Abdominal distention Assessment/Plan: ABOVE Code(s): R14.0 - ABDOMINAL DISTENSION (GASEOUS) (4) Acute kidney injury Assessment/Plan: DUE TO DIURETICS CONTINUE WITH LASIX MONITOR Code(s): N17.9 - ACUTE KIDNEY FAILURE, UNSPECIFIED (5) Venous stasis ulcer Code(s): I83.009 - VARICOSE VEINS OF UNSP LOWER EXTREMITY W ULCER OF UNSP SITE; L97.909 - NON-PRS CHRONIC ULC UNSP PRT OF UNSP LOW LEG W UNSP SEVERITY (6) Anemia Assessment/Plan: GI W/U ONCE CARDIAC ISSUE IMPROVE Code(s): D64.9 - ANEMIA, UNSPECIFIED (7) Atrial fibrillation Assessment/Plan: ON AC Code(s): I48.91 - UNSPECIFIED ATRIAL FIBRILLATION (8) Cor pulmonale (chronic) Assessment/Plan: PULM ON BOARD BIPAP CONSIDER CATH Code(s): I27.81 - COR PULMONALE (CHRONIC)
[2017-11-29 09:17] LABS: CHLORIDE 99 mmol/L (98-107); POTASSIUM 4.5 mmol/L (3.5-5.1); SODIUM 142 mmol/L (136-145)
[2017-11-29 09:24] LABS: ALBUMIN 3.5 g/dl (3.4-5.0); ALK PHOS 130 U/L (45-117); ANION GAP 10 (8-16); BILIRUBIN,TOTAL 0.8 mg/dL (0.2-1.0); BLOOD UREA NITROGEN 46 mg/dL (7-18); CALCIUM 9.3 mg/dL (8.5-10.1); CO2 33 mmol/L (21-32); CREATININE 1.5 mg/dL (0.55-1.02); GLUCOSE,RANDOM 146 mg/dL (74-106); MAGNESIUM 2.3 mg/dL (1.8-2.4); PHOSPHOROUS 3.8 mg/dL (2.5-4.9); SGOT/AST 26 U/L (15-37); SGPT/ALT 23 U/L (12-78); TOT PROT 6.6 g/dl (6.4-8.2)
[2017-11-29] MEDS ORDERED: METHIMAZOLE 5 MG TABLET (FP) PO SCH ×2 (10:00→15:30)
[2017-11-29] MEDS ORDERED: METOLAZONE 5 MG TABLET PO SCH ×2 (10:00→15:15)
[2017-11-29] MEDS: ALLOPURINOL 300 MG TABLET (FP) PO SCH (10:02)
--- NOTE | 2017-11-29 12:03 | PN ---
Progress Note (short form) - Note Progress Note: PULMONARY Breathing continues to improve. No cough or wheezing. No chest pain. Family at bedside, requesting if she can use BiPAP during day. Last Vital Signs Temp Pulse Resp BP Pulse Ox 97.8 F 77 18 130/69 98 11/29/17 08:00 11/29/17 08:48 11/29/17 08:00 11/29/17 08:00 11/29/17 08:48 Gen: NAD in chair Heart: irregular Lung: left base rales Abd: softly distended, nontender Ext: + edema CBC, BMP 11/29/17 07:50 11/29/17 07:50 Active Medications Acetaminophen (Tylenol -) 650 mg PO Q4H PRN PRN Reason: PAIN LEVEL 1-5 Last Admin: 11/28/17 16:52 Dose: 650 mg Allopurinol (Zyloprim -) 300 mg PO DAILY [facility] Last Admin: 11/29/17 10:02 Dose: 300 mg Atorvastatin Calcium (Lipitor -) 20 mg PO HS [facility] Last Admin: 11/28/17 22:07 Dose: 20 mg Furosemide (Lasix Injection -) 80 mg IVPUSH BID@0600,1400 [facility] Last Admin: 11/29/17 05:38 Dose: 80 mg Methimazole (Tapazole -) 5 mg PO BID@0530,1530 [facility] Metolazone (Zaroxolyn -) 5 mg PO BID [facility] Last Admin: 11/29/17 10:02 Dose: 5 mg Metoprolol Succinate (Toprol Xl -) 100 mg PO BID [facility] Last Admin: 11/29/17 10:02 Dose: 100 mg Polyethylene Glycol (Miralax (For Daily Use) -) 17 gm PO TID [facility] Last Admin: 11/29/17 05:38 Dose: 17 grams Warfarin Sodium 2 mg/ Warfarin (Sodium 5 mg) 7 mg PO DAILY@1800 [facility] Last Admin: 11/28/17 17:51 Dose: 7 mg A/P Acute on Chronic Hypercapneic Respiratory Failure improving Acute on Chronic Diastolic Heart Failure Severe Pulmonary HTN Atrial Fibrillation Ascites Acute Kidney Injury improving HTN Hyperlipidemia OFELIA - continue lasix, zaroxolyn - monitor urine output, creatinine - daily weights - will repeat CXR today - BiPAP at night and PRN during day - O2 to keep SpO2 >90% - rate controlled - continue anticoagulation - PT eval - outpt PFTs
--- NOTE | 2017-11-29 14:50 | PN ---
Progress Note, Physician Chief Complaint: Cardiology FU No events. Family at bedside. History of Present Illness: 81 year-old woman with a PMHx of atrial fibrillation on Warfarin, HTN, HLD, venous stasis with ulcer and prior bleeding varicose vein (seen by Dr. Prabhjot Long), chronic constipation, admitted 11/20/2017 with SOB, leg pain and abdominal distention. She was found to have diastolic CHF, severe pulmonary hypertension and cor pulmonale. She has been treated with IV Lasix. S/p paracentesis with 2100 ml serous fluid removal. Severe obstructive sleep apnea noted. ECG 11/20/2017 showed atrial fibrillation with controlled VR at 74 BPM with IVCD and inferior and lateral ST and T abnormalities. CT chest and abdomen 11/20/2017 revealed cardiomegaly, CHF, pleural effusion and free fluid in the abdomen. Echo 11/21/2017: LV is "D" shape with paradoxical septal motion and normal LV systolic function. RV is dilated and hypokinetic. Severe LA and RA dilatation. Severe pulmonary hypertension. PASP = 106 mmHg. - Current Medication List Current Medications: Active Medications Acetaminophen (Tylenol -) 650 mg PO Q4H PRN PRN Reason: PAIN LEVEL 1-5 Last Admin: 11/28/17 16:52 Dose: 650 mg Allopurinol (Zyloprim -) 300 mg PO DAILY [facility] Last Admin: 11/29/17 10:02 Dose: 300 mg Atorvastatin Calcium (Lipitor -) 20 mg PO HS [facility] Last Admin: 11/28/17 22:07 Dose: 20 mg Furosemide (Lasix Injection -) 80 mg IVPUSH BID@0600,1400 [facility] Last Admin: 11/29/17 13:37 Dose: 80 mg Methimazole (Tapazole -) 5 mg PO BID@0530,1530 [facility] Metolazone (Zaroxolyn -) 5 mg PO BID [facility] Last Admin: 11/29/17 10:02 Dose: 5 mg Metoprolol Succinate (Toprol Xl -) 100 mg PO BID [facility] Last Admin: 11/29/17 10:02 Dose: 100 mg Polyethylene Glycol (Miralax (For Daily Use) -) 17 gm PO TID [facility] Last Admin: 11/29/17 13:37 Dose: Not Given Warfarin Sodium 2 mg/ Warfarin (Sodium 5 mg) 7 mg PO DAILY@1800 [facility] Last Admin: 11/28/17 17:51 Dose: 7 mg - Objective Vital Signs: Vital Signs Temperature 98.4 F 11/29/17 14:00 Pulse Rate 82 11/29/17 14:00 Respiratory Rate 20 11/29/17 14:00 Blood Pressure 149/63 11/29/17 14:00 O2 Sat by Pulse Oximetry (%) 98 11/29/17 08:48 Constitutional: Yes: No Distress Eyes: Yes: Conjunctiva Clear, EOM Intact HENT: Yes: Atraumatic, Normocephalic Cardiovascular: Yes: Pulse Irregular, JVD Respiratory: Yes: Rales Edema: Yes Edema: LLE: 2+, RLE: 2+ Labs: CBC, BMP 11/29/17 07:50 11/29/17 07:50 INR, PTT INR 2.76 (0.82-1.09) H D 11/29/17 07:50 Problem List - Problems (1) Ascites Code(s): R18.8 - OTHER ASCITES Qualifiers: Ascites type: other type Qualified Code(s): R18.8 - Other ascites (2) Atrial fibrillation Code(s): I48.91 - UNSPECIFIED ATRIAL FIBRILLATION (3) CHF (congestive heart failure) Code(s): I50.9 - HEART FAILURE, UNSPECIFIED (4) Cor pulmonale (chronic) Code(s): I27.81 - COR PULMONALE (CHRONIC) (5) Diastolic heart failure Code(s): I50.30 - UNSPECIFIED DIASTOLIC (CONGESTIVE) HEART FAILURE (6) Heart failure, diastolic, with acute decompensation Code(s): I50.33 - ACUTE ON CHRONIC DIASTOLIC (CONGESTIVE) HEART FAILURE Assessment/Plan 81 F chronic Afib on AC, severe Right sided volume overload with ascities and severe pulmonary HTN with diastolic heart failure and severe OFELIA. Her weight has been decreasing with diuresis although I/O do not reflect net negative UO, she has noted significnat subjective diuresis. 1. Continue Metolazone now BID. To be given 30 min prior to lasix. Monitor UO closely. Goal UO of 3L daily. Check weight daily. * CKD improved with diuresis. 2. Using nocturnal CPAP is tan. 3. Rate controlled Afib. On AC. 4. Check TFT
[2017-11-29] MEDS ORDERED: WARFARIN NA 2 MG TABLET (UD) ONE (18:41)
[2017-11-29] MEDS ORDERED: WARFARIN NA 5 MG TABLET (UD) ONE (18:41)
[2017-11-29] MEDS: WARFARIN NA 2 MG, WARFARIN NA 5 MG PO SCH (18:41)
[2017-11-29] MEDS: ATORVASTATIN CA 20 MG TABLET (FP) PO SCH (21:22)
[2017-11-29] MEDS: METHIMAZOLE 5 MG TABLET (FP) PO SCH (21:22)
[2017-11-30] MEDS: METOLAZONE 5 MG TABLET PO SCH ×2 (05:26→13:40)
[2017-11-30] MEDS: POLYETHYLENE GLYCOL 3350 119 GM BTL PO SCH ×3 (06:08→22:06)
[2017-11-30] MEDS: FUROSEMIDE 40 MG/4 ML INJECTABLE VIAL IVPUSH SCH ×2 (06:08→14:07)
[2017-11-30 09:59] LABS: BASO % 1.2 % (0-2.0); HEMATOCRIT 36.2 % (32.4-45.2); HEMOGLOBIN 11.3 GM/dL (10.7-15.3); LYMPH % 11.8 % (8-40); MCH 25.7 pg (25.7-33.7); MCHC 31.2 g/dl (32.0-36.0); MEAN CELL VOLUME 82.4 fl (80-96); MONO % 8.6 % (3.8-10.2); NEUT % 74.4 % (42.8-82.8); PLATELET COUNT 175 K/MM3 (134-434); RBC 4.39 M/mm3 (3.60-5.2); RDW 17.7 % (11.6-15.6); WHITE BLOOD COUNT 5.4 K/mm3 (4.0-10.0)
[2017-11-30] MEDS: ALLOPURINOL 300 MG TABLET (FP) PO SCH (10:12)
[2017-11-30] MEDS: METHIMAZOLE 5 MG TABLET (FP) PO SCH ×2 (10:13→21:26)
[2017-11-30 10:18] LABS: CHLORIDE 97 mmol/L (98-107); SGOT/AST 23 U/L (15-37); SODIUM 144 mmol/L (136-145)
[2017-11-30 10:22] LABS: ALBUMIN 3.2 g/dl (3.4-5.0); ALK PHOS 132 U/L (45-117); ANION GAP 11 (8-16); BLOOD UREA NITROGEN 45 mg/dL (7-18); CALCIUM 8.7 mg/dL (8.5-10.1); CO2 36 mmol/L (21-32); CREATININE 1.5 mg/dL (0.55-1.02); GLUCOSE,RANDOM 178 mg/dL (74-106); SGPT/ALT 25 U/L (12-78); TOT PROT 6.3 g/dl (6.4-8.2)
--- NOTE | 2017-11-30 11:21 | PN ---
Progress Note (short form) - Note Progress Note: PULMONARY Breathing continues to improve. No cough or wheezing. No chest pain. Reports increased urination with BID zaroxolyn. Weight today down. CXR still with congestive changes. Last Vital Signs Temp Pulse Resp BP Pulse Ox 97.8 F 68 18 145/62 96 11/30/17 10:00 11/30/17 10:00 11/30/17 10:00 11/30/17 10:00 11/30/17 08:17 Intake & Output 11/27/17 11/28/17 11/29/17 11/30/17 23:59 23:59 23:59 23:59 Intake Total 620 1100 800 200 Output Total 0 600 1000 Balance 620 500 -200 200 Weight 96.615 kg 98.231 kg 98.656 kg 96.303 kg Gen: NAD in chair Heart: irregular Lung: left base rales Abd: softly distended, nontender Ext: + edema CBC, BMP 11/30/17 09:05 11/30/17 09:05 Active Medications Acetaminophen (Tylenol -) 650 mg PO Q4H PRN PRN Reason: PAIN LEVEL 1-5 Last Admin: 11/28/17 16:52 Dose: 650 mg Allopurinol (Zyloprim -) 300 mg PO DAILY [facility] Last Admin: 11/30/17 10:12 Dose: 300 mg Atorvastatin Calcium (Lipitor -) 20 mg PO HS [facility] Last Admin: 11/29/17 21:22 Dose: 20 mg Furosemide (Lasix Injection -) 80 mg IVPUSH BID@0600,1400 [facility] Last Admin: 11/30/17 06:08 Dose: 80 mg Methimazole (Tapazole -) 5 mg PO BID [facility] Last Admin: 11/30/17 10:13 Dose: 5 mg Metolazone (Zaroxolyn -) 5 mg PO BID@0530,1330 [facility] Last Admin: 11/30/17 05:26 Dose: 5 mg Metoprolol Succinate (Toprol Xl -) 100 mg PO BID [facility] Last Admin: 11/30/17 10:12 Dose: 100 mg Polyethylene Glycol (Miralax (For Daily Use) -) 17 gm PO TID [facility] Last Admin: 11/30/17 06:08 Dose: 17 grams Warfarin Sodium 2 mg/ Warfarin (Sodium 5 mg) 7 mg PO DAILY@1800 [facility] Last Admin: 11/29/17 18:41 Dose: 7 mg A/P Acute on Chronic Hypercapneic Respiratory Failure improving Acute on Chronic Diastolic Heart Failure Severe Pulmonary HTN Atrial Fibrillation Ascites Acute Kidney Injury improving HTN Hyperlipidemia OFELIA - continue lasix, zaroxolyn - monitor urine output, creatinine - daily weights - BiPAP at night and PRN during day - O2 to keep SpO2 >90% - rate controlled - continue anticoagulation - PT eval - outpt PFTs
[2017-11-30] MEDS: ACETAMINOPHEN 325 MG TABLET (FP) PO PRN (11:45)
--- NOTE | 2017-11-30 11:55 | PN ---
Progress Note, Physician Chief Complaint: siting in chair breathing is better dropped 5 pounds in weight from 11/29-11/30 on zarolyxn po and iv lasix - Current Medication List Current Medications: Active Medications Acetaminophen (Tylenol -) 650 mg PO Q4H PRN PRN Reason: PAIN LEVEL 1-5 Last Admin: 11/30/17 11:45 Dose: 650 mg Allopurinol (Zyloprim -) 300 mg PO DAILY [facility] Last Admin: 11/30/17 10:12 Dose: 300 mg Atorvastatin Calcium (Lipitor -) 20 mg PO HS [facility] Last Admin: 11/29/17 21:22 Dose: 20 mg Furosemide (Lasix Injection -) 80 mg IVPUSH BID@0600,1400 [facility] Last Admin: 11/30/17 06:08 Dose: 80 mg Methimazole (Tapazole -) 5 mg PO BID [facility] Last Admin: 11/30/17 10:13 Dose: 5 mg Metolazone (Zaroxolyn -) 5 mg PO BID@0530,1330 [facility] Last Admin: 11/30/17 05:26 Dose: 5 mg Metoprolol Succinate (Toprol Xl -) 100 mg PO BID [facility] Last Admin: 11/30/17 10:12 Dose: 100 mg Polyethylene Glycol (Miralax (For Daily Use) -) 17 gm PO TID [facility] Last Admin: 11/30/17 06:08 Dose: 17 grams Warfarin Sodium 2 mg/ Warfarin (Sodium 5 mg) 7 mg PO DAILY@1800 [facility] Last Admin: 11/29/17 18:41 Dose: 7 mg - Objective Vital Signs: Vital Signs Temperature 97.8 F 11/30/17 10:00 Pulse Rate 68 11/30/17 10:00 Respiratory Rate 18 11/30/17 10:00 Blood Pressure 145/62 11/30/17 10:00 O2 Sat by Pulse Oximetry (%) 96 11/30/17 08:17 Constitutional: Yes: Calm Cardiovascular: Yes: Regular Rate and Rhythm, S1, S2 Respiratory: Yes: Diminished Gastrointestinal: Yes: Normal Bowel Sounds, Soft, Distention Edema: Yes Neurological: Yes: Alert, Oriented Labs: CBC, BMP 11/30/17 09:05 11/30/17 09:05 INR, PTT INR 2.76 (0.82-1.09) H D 03/21/18 07:50 Problem List - Problems (1) CHF (congestive heart failure) Assessment/Plan: iv lasix and zarolxyn po bid weight dropping cxr still with congestive changes Code(s): I50.9 - HEART FAILURE, UNSPECIFIED (2) Abdominal distention Assessment/Plan: s/p paracentesis on 11/24 on zaroxlyn and iv lasix Code(s): R14.0 - ABDOMINAL DISTENSION (GASEOUS) (3) Ascites Assessment/Plan: s/p paracentesis 11/24 on duiretics Code(s): R18.8 - OTHER ASCITES Qualifiers: Ascites type: other type Qualified Code(s): R18.8 - Other ascites (4) Atrial fibrillation Assessment/Plan: restart coumadin daily INR-therapeutic metoprolol Code(s): I48.91 - UNSPECIFIED ATRIAL FIBRILLATION (5) Hyperthyroidism Assessment/Plan: tapazole Code(s): E05.90 - THYROTOXICOSIS, UNSP WITHOUT THYROTOXIC CRISIS OR STORM
--- NOTE | 2017-11-30 13:59 | PN ---
Progress Note, Physician Chief Complaint: Cardiology FU No events. Family at bedside. No dyspnea. History of Present Illness: 81 year-old woman with a PMHx of atrial fibrillation on Warfarin, HTN, HLD, venous stasis with ulcer and prior bleeding varicose vein (seen by Dr. Prabhjot Logn), chronic constipation, admitted 11/20/2017 with SOB, leg pain and abdominal distention. She was found to have diastolic CHF, severe pulmonary hypertension and cor pulmonale. She has been treated with IV Lasix. S/p paracentesis with 2100 ml serous fluid removal. Severe obstructive sleep apnea noted. ECG 11/20/2017 showed atrial fibrillation with controlled VR at 74 BPM with IVCD and inferior and lateral ST and T abnormalities. CT chest and abdomen 11/20/2017 revealed cardiomegaly, CHF, pleural effusion and free fluid in the abdomen. Echo 11/21/2017: LV is "D" shape with paradoxical septal motion and normal LV systolic function. RV is dilated and hypokinetic. Severe LA and RA dilatation. Severe pulmonary hypertension. PASP = 106 mmHg. - Current Medication List Current Medications: Active Medications Acetaminophen (Tylenol -) 650 mg PO Q4H PRN PRN Reason: PAIN LEVEL 1-5 Last Admin: 11/30/17 11:45 Dose: 650 mg Allopurinol (Zyloprim -) 300 mg PO DAILY [facility] Last Admin: 11/30/17 10:12 Dose: 300 mg Atorvastatin Calcium (Lipitor -) 20 mg PO HS [facility] Last Admin: 11/29/17 21:22 Dose: 20 mg Furosemide (Lasix Injection -) 80 mg IVPUSH BID@0600,1400 [facility] Last Admin: 11/30/17 06:08 Dose: 80 mg Methimazole (Tapazole -) 5 mg PO BID [facility] Last Admin: 11/30/17 10:13 Dose: 5 mg Metolazone (Zaroxolyn -) 5 mg PO BID@0530,1330 [facility] Last Admin: 11/30/17 13:40 Dose: 5 mg Metoprolol Succinate (Toprol Xl -) 100 mg PO BID [facility] Last Admin: 11/30/17 10:12 Dose: 100 mg Polyethylene Glycol (Miralax (For Daily Use) -) 17 gm PO TID [facility] Last Admin: 11/30/17 06:08 Dose: 17 grams Warfarin Sodium 2 mg/ Warfarin (Sodium 5 mg) 7 mg PO DAILY@1800 [facility] Last Admin: 11/29/17 18:41 Dose: 7 mg - Objective Vital Signs: Vital Signs Temperature 97.8 F 11/30/17 10:00 Pulse Rate 68 11/30/17 10:00 Respiratory Rate 18 11/30/17 10:00 Blood Pressure 145/62 11/30/17 10:00 O2 Sat by Pulse Oximetry (%) 95 11/30/17 09:00 Constitutional: Yes: No Distress, Calm Eyes: Yes: Conjunctiva Clear, EOM Intact HENT: Yes: Atraumatic, Normocephalic Neck: Yes: Supple, Trachea Midline Cardiovascular: Yes: Pulse Irregular, JVD, S1, S2 Respiratory: Yes: Regular, CTA Bilaterally Gastrointestinal: Yes: Normal Bowel Sounds, Soft, Distention Edema: Yes Edema: LLE: 1+, RLE: 1+ Labs: CBC, BMP 11/30/17 09:05 11/30/17 09:05 INR, PTT INR 2.76 (0.82-1.09) H D 11/29/17 07:50 Problem List - Problems (1) Ascites Code(s): R18.8 - OTHER ASCITES Qualifiers: Ascites type: other type Qualified Code(s): R18.8 - Other ascites (2) Atrial fibrillation Code(s): I48.91 - UNSPECIFIED ATRIAL FIBRILLATION (3) CHF (congestive heart failure) Code(s): I50.9 - HEART FAILURE, UNSPECIFIED (4) Cor pulmonale (chronic) Code(s): I27.81 - COR PULMONALE (CHRONIC) (5) Diastolic heart failure Code(s): I50.30 - UNSPECIFIED DIASTOLIC (CONGESTIVE) HEART FAILURE (6) Heart failure, diastolic, with acute decompensation Code(s): I50.33 - ACUTE ON CHRONIC DIASTOLIC (CONGESTIVE) HEART FAILURE Assessment/Plan 81 F chronic Afib on AC, severe Right sided volume overload with ascities and severe pulmonary HTN with diastolic heart failure and severe OFELIA. Her weight has been decreasing with diuresis although I/O do not reflect net negative UO, she has noted significnat subjective diuresis. 1. Continue Metolazone now BID. To be given 30 min prior to lasix. Monitor UO closely. Goal UO of 3L daily. Check weight daily. * Will likely switch to torsemide 40mg bid PO tomorrow. 2. CPAP for severe OFELIA. May consider eventual rt heart cath as an out patient. 3. Rate controlled Afib. On AC. 4. Check TFT
--- NOTE | 2017-11-30 17:09 | PN ---
Progress Note (short form) - Note Progress Note: Renal follow up for SLOANE Pt seen and examined at the bedside sitting in chair, on BIPAP, asleep daughter at the bedside reports that her mom was feeling better today Vital Signs Temperature 97.8 F 11/30/17 14:00 Pulse Rate 68 11/30/17 10:00 Respiratory Rate 18 11/30/17 10:00 Blood Pressure 145/62 11/30/17 10:00 O2 Sat by Pulse Oximetry (%) 95 11/30/17 09:00 Intake & Output 11/27/17 11/28/17 11/29/17 11/30/17 23:59 23:59 23:59 23:59 Intake Total 620 1100 800 600 Output Total 0 600 1000 800 Balance 620 500 -200 -200 Weight 96.615 kg 98.231 kg 98.656 kg 96.303 kg NAD + edema in LE CBC, BMP 11/30/17 09:05 11/30/17 09:05 Current Medications Acetaminophen (Tylenol -) 650 mg PO Q4H PRN PRN Reason: PAIN LEVEL 1-5 Last Admin: 11/30/17 11:45 Dose: 650 mg Allopurinol (Zyloprim -) 300 mg PO DAILY [facility] Last Admin: 11/30/17 10:12 Dose: 300 mg Atorvastatin Calcium (Lipitor -) 20 mg PO HS [facility] Last Admin: 11/29/17 21:22 Dose: 20 mg Furosemide (Lasix Injection -) 80 mg IVPUSH BID@0600,1400 [facility] Last Admin: 11/30/17 14:07 Dose: 80 mg Methimazole (Tapazole -) 5 mg PO BID [facility] Last Admin: 11/30/17 10:13 Dose: 5 mg Metolazone (Zaroxolyn -) 5 mg PO BID@0530,1330 [facility] Last Admin: 11/30/17 13:40 Dose: 5 mg Metoprolol Succinate (Toprol Xl -) 100 mg PO BID [facility] Last Admin: 11/30/17 10:12 Dose: 100 mg Polyethylene Glycol (Miralax (For Daily Use) -) 17 gm PO TID [facility] Last Admin: 11/30/17 15:26 Dose: Not Given Warfarin Sodium 2 mg/ Warfarin (Sodium 5 mg) 7 mg PO DAILY@1800 [facility] Last Admin: 11/29/17 18:41 Dose: 7 mg 81 year old woman with PMhx of Afib on Coumadin, HTN, Hyperlipidemia, Venous stasis, ? CKD who presented with complaints of worsening SOB, and Abd distension and admitted for Diastolic HF, Abd ascities and found to have Cr of 1.8. #Acute Renal Failure with possible history of CKD in setting of HF/Asciteis Renal function stable with IV lasix + Metolazone would continue present meds and trend renal function agree with transition to torsemide if weights improving and renal function stable tomorrow Denis Boogie DO
[2017-11-30] MEDS: WARFARIN NA 2 MG, WARFARIN NA 5 MG PO SCH (18:19)
[2017-11-30] MEDS ORDERED: WARFARIN NA 2 MG TABLET (UD) ONE (18:19)
[2017-11-30] MEDS ORDERED: WARFARIN NA 5 MG TABLET (UD) ONE (18:19)
[2017-11-30] MEDS: ATORVASTATIN CA 20 MG TABLET (FP) PO SCH (21:25)
[2017-12-01] MEDS: METOLAZONE 5 MG TABLET PO SCH ×2 (05:25→14:21)
[2017-12-01] MEDS: FUROSEMIDE 40 MG/4 ML INJECTABLE VIAL IVPUSH SCH ×2 (06:32→14:51)
[2017-12-01] MEDS: POLYETHYLENE GLYCOL 3350 119 GM BTL PO SCH ×3 (06:32→21:51)
[2017-12-01 08:24] LABS: INR 3.68 (0.82-1.09); PROTHROMBIN TIME (PATIENT) 41.6 SEC (9.98-11.88)
[2017-12-01 08:52] LABS: ALBUMIN 3.3 g/dl (3.4-5.0); ANION GAP 6 (8-16); BLOOD UREA NITROGEN 43 mg/dL (7-18); CALCIUM 8.7 mg/dL (8.5-10.1); CHLORIDE 96 mmol/L (98-107); CO2 39 mmol/L (21-32); GLUCOSE,RANDOM 105 mg/dL (74-106); MAGNESIUM 1.9 mg/dL (1.8-2.4); POTASSIUM 3.5 mmol/L (3.5-5.1); SODIUM 141 mmol/L (136-145)
[2017-12-01 09:06] LABS: ALK PHOS 128 U/L (45-117); BILIRUBIN,TOTAL 0.9 mg/dL (0.2-1.0); CREATININE 1.3 mg/dL (0.55-1.02); SGOT/AST 21 U/L (15-37); SGPT/ALT 22 U/L (12-78)
--- NOTE | 2017-12-01 09:36 | PN ---
Progress Note, Physician History of Present Illness: sleeping feels less swollen - Current Medication List Current Medications: Active Medications Acetaminophen (Tylenol -) 650 mg PO Q4H PRN PRN Reason: PAIN LEVEL 1-5 Last Admin: 11/30/17 11:45 Dose: 650 mg Allopurinol (Zyloprim -) 300 mg PO DAILY [facility] Last Admin: 11/30/17 10:12 Dose: 300 mg Atorvastatin Calcium (Lipitor -) 20 mg PO HS [facility] Last Admin: 11/30/17 21:25 Dose: 20 mg Furosemide (Lasix Injection -) 80 mg IVPUSH BID@0600,1400 [facility] Last Admin: 12/01/17 06:32 Dose: 80 mg Methimazole (Tapazole -) 5 mg PO Q12H [facility] Last Admin: 11/30/17 21:26 Dose: 5 mg Metolazone (Zaroxolyn -) 5 mg PO BID@0530,1330 [facility] Last Admin: 12/01/17 05:25 Dose: 5 mg Metoprolol Succinate (Toprol Xl -) 100 mg PO BID [facility] Last Admin: 11/30/17 21:25 Dose: 100 mg Polyethylene Glycol (Miralax (For Daily Use) -) 17 gm PO TID [facility] Last Admin: 12/01/17 06:32 Dose: 17 grams Warfarin Sodium 2 mg/ Warfarin (Sodium 5 mg) 7 mg PO DAILY@1800 [facility] Last Admin: 11/30/17 18:19 Dose: 7 mg - Objective Vital Signs: Vital Signs Temperature 97.9 F 12/01/17 06:00 Pulse Rate 64 12/01/17 06:00 Respiratory Rate 20 12/01/17 06:00 Blood Pressure 146/56 12/01/17 06:00 O2 Sat by Pulse Oximetry (%) 99 11/30/17 21:00 Respiratory: Yes: Regular, CTA Bilaterally Gastrointestinal: Yes: Normal Bowel Sounds, Soft, Ascites, Distention Labs: CBC, BMP 11/30/17 09:05 12/01/17 07:30 INR, PTT INR 3.68 (0.82-1.09) H D 12/01/17 07:30 Problem List - Problems (1) CHF (congestive heart failure) Assessment/Plan: -IV LASIX add zaroxyln bid--if no response consider drip--question if albumin of any benefit - s/p paracentesis for ascites 11/24 - Monitor I&O, weight (increased since yesterday) - Oxygen to maintain saturation>90% Code(s): I50.9 - HEART FAILURE, UNSPECIFIED (2) Ascites Code(s): R18.8 - OTHER ASCITES Qualifiers: Ascites type: other type Qualified Code(s): R18.8 - Other ascites (3) Abdominal distention Code(s): R14.0 - ABDOMINAL DISTENSION (GASEOUS) (4) Acute kidney injury Code(s): N17.9 - ACUTE KIDNEY FAILURE, UNSPECIFIED (5) Venous stasis ulcer Code(s): I83.009 - VARICOSE VEINS OF UNSP LOWER EXTREMITY W ULCER OF UNSP SITE; L97.909 - NON-PRS CHRONIC ULC UNSP PRT OF UNSP LOW LEG W UNSP SEVERITY (6) Anemia Code(s): D64.9 - ANEMIA, UNSPECIFIED (7) Atrial fibrillation Code(s): I48.91 - UNSPECIFIED ATRIAL FIBRILLATION (8) Cor pulmonale (chronic) Code(s): I27.81 - COR PULMONALE (CHRONIC) Assessment/Plan - Problems (1) CHF (congestive heart failure) Assessment/Plan: iv lasix and zarolxyn po bid weight dropping cxr still with congestive changes Code(s): I50.9 - HEART FAILURE, UNSPECIFIED (2) Abdominal distention Assessment/Plan: s/p paracentesis on 11/24 on zaroxlyn and iv lasix Code(s): R14.0 - ABDOMINAL DISTENSION (GASEOUS) (3) Ascites Assessment/Plan: s/p paracentesis 11/24 on duiretics Code(s): R18.8 - OTHER ASCITES Qualifiers: Ascites type: other type Qualified Code(s): R18.8 - Other ascites (4) Atrial fibrillation Assessment/Plan: restart coumadin daily INR-therapeutic metoprolol Code(s): I48.91 - UNSPECIFIED ATRIAL FIBRILLATION (5) Hyperthyroidism Assessment/Plan: tapazole to qd endo Code(s): E05.90 - THYROTOXICOSIS, UNSP WITHOUT THYROTOXIC CRISIS OR STORM
[2017-12-01] MEDS: ALLOPURINOL 300 MG TABLET (FP) PO SCH (10:38)
[2017-12-01] MEDS: METHIMAZOLE 5 MG TABLET (FP) PO SCH (10:38)
--- NOTE | 2017-12-01 12:06 | PN ---
Progress Note, Physician Chief Complaint: patient seen and examined sititing in chair and eating lunch feels better - Current Medication List Current Medications: Active Medications Acetaminophen (Tylenol -) 650 mg PO Q4H PRN PRN Reason: PAIN LEVEL 1-5 Last Admin: 11/30/17 11:45 Dose: 650 mg Allopurinol (Zyloprim -) 300 mg PO DAILY [facility] Last Admin: 12/01/17 10:38 Dose: 300 mg Atorvastatin Calcium (Lipitor -) 20 mg PO HS [facility] Last Admin: 11/30/17 21:25 Dose: 20 mg Furosemide (Lasix Injection -) 80 mg IVPUSH BID@0600,1400 [facility] Last Admin: 12/01/17 06:32 Dose: 80 mg Methimazole (Tapazole -) 5 mg PO Q12H [facility] Last Admin: 12/01/17 10:38 Dose: 5 mg Metolazone (Zaroxolyn -) 5 mg PO BID@0530,1330 [facility] Last Admin: 12/01/17 05:25 Dose: 5 mg Metoprolol Succinate (Toprol Xl -) 100 mg PO BID [facility] Last Admin: 12/01/17 10:38 Dose: 100 mg Polyethylene Glycol (Miralax (For Daily Use) -) 17 gm PO TID [facility] Last Admin: 12/01/17 06:32 Dose: 17 grams Warfarin Sodium 2 mg/ Warfarin (Sodium 5 mg) 7 mg PO DAILY@1800 [facility] Last Admin: 11/30/17 18:19 Dose: 7 mg - Objective Vital Signs: Vital Signs Temperature 98 F 12/01/17 10:00 Pulse Rate 74 12/01/17 10:00 Respiratory Rate 20 12/01/17 10:00 Blood Pressure 148/68 12/01/17 10:00 O2 Sat by Pulse Oximetry (%) 99 11/30/17 21:00 Constitutional: Yes: Calm Cardiovascular: Yes: Regular Rate and Rhythm, S1, S2 Respiratory: Yes: On Nasal O2, Rales (on exam) Gastrointestinal: Yes: Normal Bowel Sounds, Soft Edema: Yes (less than before) Neurological: Yes: Alert, Oriented Labs: CBC, BMP 11/30/17 09:05 12/01/17 07:30 INR, PTT INR 3.68 (0.82-1.09) H D 12/01/17 07:30 Problem List - Problems (1) CHF (congestive heart failure) Assessment/Plan: iv lasix and zarolxyn po bid weight dropping from 212 to 206 potassium repleted Code(s): I50.9 - HEART FAILURE, UNSPECIFIED (2) Abdominal distention Assessment/Plan: s/p paracentesis on 11/24 on zaroxlyn and iv lasix- abdominal distension is less Code(s): R14.0 - ABDOMINAL DISTENSION (GASEOUS) (3) Ascites Assessment/Plan: s/p paracentesis 11/24 on duiretics weight is dropping Code(s): R18.8 - OTHER ASCITES Qualifiers: Ascites type: other type Qualified Code(s): R18.8 - Other ascites (4) Atrial fibrillation Assessment/Plan: hold couamdin elevated INR metoprolol Code(s): I48.91 - UNSPECIFIED ATRIAL FIBRILLATION (5) Hyperthyroidism Assessment/Plan: tapazole Code(s): E05.90 - THYROTOXICOSIS, UNSP WITHOUT THYROTOXIC CRISIS OR STORM
[2017-12-01] MEDS ORDERED: POTASSIUM CHLORIDE TABS 20 MEQ TABLET.ER (FP) PO ONE (13:00)
--- NOTE | 2017-12-01 13:27 | PN ---
Progress Note, Physician Chief Complaint: Cardiology FU No events. No dyspnea. History of Present Illness: 81 year-old woman with a PMHx of atrial fibrillation on Warfarin, HTN, HLD, venous stasis with ulcer and prior bleeding varicose vein (seen by Dr. Prabhjot Long), chronic constipation, admitted 11/20/2017 with SOB, leg pain and abdominal distention. She was found to have diastolic CHF, severe pulmonary hypertension and cor pulmonale. She has been treated with IV Lasix. S/p paracentesis with 2100 ml serous fluid removal. Severe obstructive sleep apnea noted. ECG 11/20/2017 showed atrial fibrillation with controlled VR at 74 BPM with IVCD and inferior and lateral ST and T abnormalities. CT chest and abdomen 11/20/2017 revealed cardiomegaly, CHF, pleural effusion and free fluid in the abdomen. Echo 11/21/2017: LV is "D" shape with paradoxical septal motion and normal LV systolic function. RV is dilated and hypokinetic. Severe LA and RA dilatation. Severe pulmonary hypertension. PASP = 106 mmHg. - Current Medication List Current Medications: Active Medications Acetaminophen (Tylenol -) 650 mg PO Q4H PRN PRN Reason: PAIN LEVEL 1-5 Last Admin: 11/30/17 11:45 Dose: 650 mg Allopurinol (Zyloprim -) 300 mg PO DAILY [facility] Last Admin: 12/01/17 10:38 Dose: 300 mg Atorvastatin Calcium (Lipitor -) 20 mg PO HS [facility] Last Admin: 11/30/17 21:25 Dose: 20 mg Furosemide (Lasix Injection -) 80 mg IVPUSH BID@0600,1400 [facility] Last Admin: 12/01/17 06:32 Dose: 80 mg Methimazole (Tapazole -) 5 mg PO Q12H [facility] Last Admin: 12/01/17 10:38 Dose: 5 mg Metolazone (Zaroxolyn -) 5 mg PO BID@0530,1330 [facility] Last Admin: 12/01/17 05:25 Dose: 5 mg Metoprolol Succinate (Toprol Xl -) 100 mg PO BID [facility] Last Admin: 12/01/17 10:38 Dose: 100 mg Polyethylene Glycol (Miralax (For Daily Use) -) 17 gm PO TID [facility] Last Admin: 12/01/17 06:32 Dose: 17 grams Warfarin Sodium 2 mg/ Warfarin (Sodium 5 mg) 7 mg PO DAILY@1800 [facility] Last Admin: 11/30/17 18:19 Dose: 7 mg - Objective Vital Signs: Vital Signs Temperature 98 F 12/01/17 10:00 Pulse Rate 74 12/01/17 10:00 Respiratory Rate 20 12/01/17 10:00 Blood Pressure 148/68 12/01/17 10:00 O2 Sat by Pulse Oximetry (%) 99 11/30/17 21:00 Constitutional: Yes: Well Nourished, No Distress Eyes: Yes: Conjunctiva Clear, EOM Intact HENT: Yes: Atraumatic, Normocephalic Neck: Yes: Trachea Midline Cardiovascular: Yes: Pulse Irregular, JVD Respiratory: Yes: CTA Bilaterally Edema: Yes Edema: LLE: 2+, RLE: 2+ Labs: CBC, BMP 11/30/17 09:05 12/01/17 07:30 INR, PTT INR 3.68 (0.82-1.09) H D 12/01/17 07:30 Problem List - Problems (1) Ascites Code(s): R18.8 - OTHER ASCITES Qualifiers: Ascites type: other type Qualified Code(s): R18.8 - Other ascites (2) Atrial fibrillation Code(s): I48.91 - UNSPECIFIED ATRIAL FIBRILLATION (3) CHF (congestive heart failure) Code(s): I50.9 - HEART FAILURE, UNSPECIFIED (4) Cor pulmonale (chronic) Code(s): I27.81 - COR PULMONALE (CHRONIC) (5) Diastolic heart failure Code(s): I50.30 - UNSPECIFIED DIASTOLIC (CONGESTIVE) HEART FAILURE (6) Heart failure, diastolic, with acute decompensation Code(s): I50.33 - ACUTE ON CHRONIC DIASTOLIC (CONGESTIVE) HEART FAILURE Assessment/Plan 81 F chronic Afib on AC, severe Right sided volume overload with ascities and severe pulmonary HTN with diastolic heart failure and severe OFELIA. Her weight has been decreasing with diuresis , she has noted significnat subjective diuresis. 1. Continue Metolazone now BID. To be given 30 min prior to lasix. Monitor UO closely. Goal UO of 3L daily. Check weight daily. * Switch to torsemide 40mg BID. Continue Metolazone 30 min prior to Torsemide. 2. CPAP for severe OFELIA. May consider eventual rt heart cath as an out patient. 3. Consider Discharge with close out patient followup. 4. K supplementation. Will see as needed.
--- NOTE | 2017-12-01 15:12 | CONSULT ---
Consult Consult Specialty:: endocrine Referred by:: dr.iyad zaldivar Reason for Consultation:: hyperthyroidism - History of Present Illness Chief Complaint: weak and tired History of Present Illness: 81 YOF with h/o chronic constipation, A-fib on coumadin, HTN, HLD, and RLE venous stasis ulcer with prior bleeding varicose vein (seen by Dr. Prabhjot Long) , who was seen in office a few days ago with progressive swelling and refused admission and was started on diuretics for wt and was advised to go to the ED to be seen for SOB, leg pain, and abdominal distention. The patient and her family state that she has been increasingly weak and confused since gained weight - Past Medical History Cardio/Vascular: Yes: AFIB, CHF (LV diastolic dyspfunction and cor pulmonale), HTN, Hyperlipdemia, Pulmonary Hypertension, Other (venous insufficiency) Pulmonary: Yes: COPD Gastrointestinal: Yes: Ascites, Constipation, Hemorrhoids, Other (Constipation) ...: No Endocrine: Yes: Hyperthyroidism - Past Surgical History Past Surgical History: Yes: None - Alcohol/Substance Use Hx Alcohol Use: No History of Substance Use: reports: None - Smoking History Smoking history: Never smoked Have you smoked in the past 12 months: No - Social History Usual Living Arrangement: With Spouse ADL: Independent 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 History of Recent Travel: Yes ([place]) Home Medications - Allergies Allergies/Adverse Reactions: Allergies Allergy/AdvReac Type Severity Reaction Status Date / Time No Known Allergies Allergy Verified 03/12/17 15:34 - Home Medications Home Medications: Ambulatory Orders Allopurinol 300 mg PO DAILY 03/12/17 Amlodipine Besylate [Norvasc -] 5 mg PO DAILY 03/12/17 Aspirin [Ecotrin] 81 mg PO DAILY 03/12/17 Cholecalciferol (Vitamin D3) [Vitamin D3] 2,000 unit PO DAILY 03/12/17 Furosemide [Lasix] 40 mg PO BID 03/12/17 Losartan Potassium 100 mg PO DAILY 03/12/17 Methimazole 5 mg PO DAILY 03/12/17 Metoprolol Succinate [Toprol Xl] 100 mg PO BID 03/12/17 Pravastatin Sodium [Pravachol (Nf)] 80 mg PO HS 03/12/17 Warfarin Sodium [Coumadin] 6 mg PO HS 03/12/17 hydrALAZINE HCL [Apresoline -] 100 mg PO BID 03/12/17 Acetaminophen 325 mg PO Q4H PRN 11/20/17 Polyethylene Glycol 3350 [Miralax (For Daily Use) -] 17 gm PO DAILY PRN Family Disease History - Family Disease History Family Disease History: Diabetes: Brother ( [place]), Heart Disease: Brother, Other: Father (lived into 80s), Mother (lived into 80s) Review of Systems - Review of Systems Constitutional: reports: Lethargy, Weakness Eyes: reports: No Symptoms HENT: reports: No Symptoms Neck: reports: No Symptoms Cardiovascular: reports: Shortness of Breath Respiratory: reports: Exercise Intolerance, SOB on Exertion Gastrointestinal: reports: Bloating Genitourinary: reports: No Symptoms Breasts: reports: No Symptoms Reported Musculoskeletal: reports: Joint Swelling, Muscle Weakness Integumentary: reports: No Symptoms Neurological: reports: Weakness Endocrine: reports: Intolerance to Cold Physical Exam Vital Signs: Vital Signs Temperature 98 F 12/01/17 10:00 Pulse Rate 74 12/01/17 10:00 Respiratory Rate 20 12/01/17 10:00 Blood Pressure 148/68 12/01/17 10:00 O2 Sat by Pulse Oximetry (%) 99 11/30/17 21:00 Constitutional: Yes: Anxious Eyes: Yes: EOM Intact HENT: Yes: Normocephalic Neck: Yes: Thyromegaly Cardiovascular: Yes: Pulse Irregular Respiratory: Yes: CTA Bilaterally Gastrointestinal: Yes: Normal Bowel Sounds ...Rectal Exam: Yes: Deferred Renal/: Yes: WNL Breast(s): Yes: WNL Musculoskeletal: Yes: WNL Extremities: Yes: WNL Neurological: Yes: Alert, Oriented Labs: CBC, BMP 11/30/17 09:05 12/01/17 07:30 Problem List - Problems (1) Hypothyroidism Code(s): E03.9 - HYPOTHYROIDISM, UNSPECIFIED (2) Atrial fibrillation Code(s): I48.91 - UNSPECIFIED ATRIAL FIBRILLATION (3) CHF (congestive heart failure) Code(s): I50.9 - HEART FAILURE, UNSPECIFIED Assessment/Plan Current Active Problems Abdominal distention (Acute) Acute kidney injury (Acute) Anemia (Acute) Ascites (Acute) Atrial fibrillation (Acute) Atrial fibrillation (Acute) CHF (congestive heart failure) (Acute) Chronic venous stasis dermatitis (Acute) Constipation (Acute) Cor pulmonale (chronic) (Acute) Diastolic heart failure (Acute) Heart failure, diastolic, with acute decompensation (Acute) Hyperthyroidism (Acute) Lactic acidosis (Acute) Permanent atrial fibrillation (Acute) Pulmonary hypertension (Acute) Right ankle pain (Acute) Shortness of breath (Acute) hypothyroidism sp methimazole therapy Abnormal Lab Results 12/01/17 12/01/17 07:30 07:30 PT with INR 41.60 H INR 3.68 H D Chloride 96 L Carbon Dioxide 39 H Anion Gap 6 L BUN 43 H Creatinine 1.3 H Alkaline Phosphatase 128 H Total Protein 6.0 L Albumin 3.3 L TSH 4.50 H Laboratory Results - last 24 hr 12/01/17 12/01/17 07:30 07:30 PT with INR 41.60 H INR 3.68 H D Sodium 141 Potassium 3.5 Chloride 96 L Carbon Dioxide 39 H Anion Gap 6 L BUN 43 H Creatinine 1.3 H Creat Clearance w eGFR 39.51 Random Glucose 105 Calcium 8.7 Magnesium 1.9 Total Bilirubin 0.9 AST 21 ALT 22 Alkaline Phosphatase 128 H Total Protein 6.0 L Albumin 3.3 L TSH 4.50 H Free T4 0.82 plan: dc methimazole bid use methimazole 5 mg qod and repeat tsh free t4 in 3-4 weeks may need lower dose titration or dc if tsh remains high
--- NOTE | 2017-12-01 15:14 | PN ---
Progress Note (short form) - Note Progress Note: PULMONARY CHART REVIEWED SPOKE AT LENGTH WITH DAUGHTER VSS/AFEBRILE ANICTERIC DIMINISHED BREATH SIUNDS S1S2 OBESE LESS EDEMA LOWER EXT LABS/MEDS/NOTES/IMAGES REVIEWED Acute on Chronic Hypercapneic Respiratory Failure improving Acute on Chronic Diastolic Heart Failure Severe Pulmonary HTN Atrial Fibrillation Ascites Acute Kidney Injury improving HTN Hyperlipidemia OFELIA - continue lasix, zaroxolyn - monitor urine output, creatinine - daily weights - BiPAP at night and PRN during day - O2 to keep SpO2 >90% - rate controlled - continue anticoagulation - PT eval - outpt PFTs/psg - will likely need NIPPV Monika HOWARD MD
--- NOTE | 2017-12-01 18:12 | PN ---
Progress Note (short form) - Note Progress Note: Renal follow up for SLOANE Pt seen and examined at the bedside no acute complaints no sob making urine legs feel better no cp, abd pain, N/V/D Vital Signs Temperature 97.9 F 12/01/17 13:45 Pulse Rate 70 12/01/17 13:45 Respiratory Rate 18 12/01/17 13:45 Blood Pressure 150/70 12/01/17 13:45 O2 Sat by Pulse Oximetry (%) 98 12/01/17 09:00 Intake & Output 11/28/17 11/29/17 11/30/17 12/01/17 23:59 23:59 23:59 23:59 Intake Total 1100 800 700 200 Output Total 600 1000 1400 1800 Balance 500 -200 -700 -1600 Weight 98.231 kg 98.656 kg 96.303 kg 93.44 kg NAD + edema in LE CBC, BMP 11/30/17 09:05 12/01/17 07:30 Current Medications Acetaminophen (Tylenol -) 650 mg PO Q4H PRN PRN Reason: PAIN LEVEL 1-5 Last Admin: 11/30/17 11:45 Dose: 650 mg Allopurinol (Zyloprim -) 300 mg PO DAILY [facility] Last Admin: 12/01/17 10:38 Dose: 300 mg Atorvastatin Calcium (Lipitor -) 20 mg PO HS [facility] Last Admin: 11/30/17 21:25 Dose: 20 mg Furosemide (Lasix Injection -) 80 mg IVPUSH BID@0600,1400 [facility] Last Admin: 12/01/17 14:51 Dose: 80 mg Methimazole (Tapazole -) 5 mg PO Q2D [facility] Metolazone (Zaroxolyn -) 5 mg PO BID@0530,1330 [facility] Last Admin: 12/01/17 14:21 Dose: 5 mg Metoprolol Succinate (Toprol Xl -) 100 mg PO BID [facility] Last Admin: 12/01/17 10:38 Dose: 100 mg Polyethylene Glycol (Miralax (For Daily Use) -) 17 gm PO TID [facility] Last Admin: 12/01/17 14:51 Dose: 17 grams Warfarin Sodium 2 mg/ Warfarin (Sodium 5 mg) 7 mg PO DAILY@1800 [facility] Last Admin: 11/30/17 18:19 Dose: 7 mg 81 year old woman with PMhx of Afib on Coumadin, HTN, Hyperlipidemia, Venous stasis, ? CKD who presented with complaints of worsening SOB, and Abd distension and admitted for Diastolic HF, Abd ascities and found to have Cr of 1.8. #Acute Renal Failure with possible history of CKD in setting of HF/Asciteis Renal function improved and stable achieving diuresis with Lasix and Metolazone plan to change to PO toresmide in the AM continue Metolazone once daily will need outpatient renal follow up on discharge Denis Boogie DO
[2017-12-01] MEDS: ATORVASTATIN CA 20 MG TABLET (FP) PO SCH (21:51)
[2017-12-02] MEDS: METOLAZONE 5 MG TABLET PO SCH ×2 (05:46→09:10)
[2017-12-02] MEDS: POLYETHYLENE GLYCOL 3350 119 GM BTL PO SCH ×3 (06:40→22:16)
[2017-12-02 08:22] LABS: INR 3.36 (0.82-1.09)
[2017-12-02 08:43] LABS: ALBUMIN 2.9 g/dl (3.4-5.0); ANION GAP 4 (8-16); BLOOD UREA NITROGEN 42 mg/dL (7-18); CALCIUM 8.5 mg/dL (8.5-10.1); CHLORIDE 94 mmol/L (98-107); CO2 44 mmol/L (21-32); CREATININE 1.4 mg/dL (0.55-1.02); GLUCOSE,RANDOM 102 mg/dL (74-106); POTASSIUM 3.4 mmol/L (3.5-5.1); SGOT/AST 21 U/L (15-37); SGPT/ALT 18 U/L (12-78); SODIUM 142 mmol/L (136-145)
[2017-12-02 08:46] LABS: ALK PHOS 119 U/L (45-117); BILIRUBIN,TOTAL 0.9 mg/dL (0.2-1.0); TOT PROT 5.6 g/dl (6.4-8.2)
[2017-12-02] MEDS ORDERED: PT OWN MED DRAWER 7, Y5N ONE (09:42)
[2017-12-02] MEDS: TORSEMIDE 20 MG TABLET (FP) PO SCH (09:46)
[2017-12-02] MEDS: POTASSIUM CHLORIDE TABS 20 MEQ TABLET.ER (FP) PO SCH (09:46)
[2017-12-02] MEDS: ALLOPURINOL 300 MG TABLET (FP) PO SCH (09:46)
--- NOTE | 2017-12-02 12:25 | PN ---
Progress Note (short form) - Note Progress Note: Renal follow up for SLOANE Pt seen and examined at the bedside no acute complaints Vital Signs Temperature 98.3 F 12/02/17 06:00 Pulse Rate 65 12/02/17 06:00 Respiratory Rate 20 12/02/17 06:00 Blood Pressure 143/82 12/02/17 06:00 O2 Sat by Pulse Oximetry (%) 96 12/01/17 22:00 Intake & Output 11/29/17 11/30/17 12/01/17 12/02/17 23:59 23:59 23:59 23:59 Intake Total 800 700 200 Output Total 1000 1400 1800 Balance -200 -700 -1600 Weight 98.656 kg 96.303 kg 93.44 kg 95.311 kg NAD + edema in LE CBC, BMP 11/30/17 09:05 12/02/17 07:00 Current Medications Acetaminophen (Tylenol -) 650 mg PO Q4H PRN PRN Reason: PAIN LEVEL 1-5 Last Admin: 11/30/17 11:45 Dose: 650 mg Allopurinol (Zyloprim -) 300 mg PO DAILY [facility] Last Admin: 12/02/17 09:46 Dose: 300 mg Atorvastatin Calcium (Lipitor -) 20 mg PO HS [facility] Last Admin: 12/01/17 21:51 Dose: 20 mg Methimazole (Tapazole -) 5 mg PO Q2D [facility] Metolazone (Zaroxolyn -) 5 mg PO DAILY@0930 [facility] Last Admin: 12/02/17 09:10 Dose: 5 mg Metoprolol Succinate (Toprol Xl -) 100 mg PO BID [facility] Last Admin: 12/02/17 09:46 Dose: 100 mg Polyethylene Glycol (Miralax (For Daily Use) -) 17 gm PO TID [facility] Last Admin: 12/02/17 06:40 Dose: 17 grams Potassium Chloride (K-Dur -) 40 meq PO DAILY [facility] Last Admin: 12/02/17 09:46 Dose: 40 meq Torsemide (Demadex -) 40 mg PO DAILY [facility] Last Admin: 12/02/17 09:46 Dose: 40 mg Warfarin Sodium 2 mg/ Warfarin (Sodium 5 mg) 7 mg PO DAILY@1800 [facility] Last Admin: 11/30/17 18:19 Dose: 7 mg 81 year old woman with PMhx of Afib on Coumadin, HTN, Hyperlipidemia, Venous stasis, ? CKD who presented with complaints of worsening SOB, and Abd distension and admitted for Diastolic HF, Abd ascities and found to have Cr of 1.8. #Acute Renal Failure with possible history of CKD in setting of HF/Asciteis Renal function improved and stable weights overall improved stable for discharge on Torsemide 40mg daily and Metolazone 5mg 30 minutes before torsemide daily Please also continue Potassium 40meq daily will need renal follow and repeat labs next week Thank you pt is stable for discharge Denis Boogie DO
--- NOTE | 2017-12-02 12:41 | PN ---
Progress Note (short form) - Note Progress Note: PULMONARY OOB TO CHAIR VSS/AFEBRILE ANICTERIC DIMINISHED BREATH SOUNDS BASES S1S2 OBESE LESS EDEMA LOWER EXT LABS/MEDS/NOTES/IMAGES REVIEWED Acute on Chronic Hypercapneic Respiratory Failure improving Acute on Chronic Diastolic Heart Failure Severe Pulmonary HTN Atrial Fibrillation Ascites Acute Kidney Injury improving HTN Hyperlipidemia OFELIA - diuretics as outlined by Salvage Machine Operator - monitor urine output, creatinine - daily weights - outpatient PSG to be arranged - BiPAP will likely be required - O2 to keep SpO2 >90% - rate controlled - continue anticoagulation - PT jonathon HOWADR MD
[2017-12-02] MEDS ORDERED: WARFARIN NA 5 MG TABLET (UD) ONE (18:15)
[2017-12-02] MEDS ORDERED: WARFARIN NA 2 MG TABLET (UD) ONE (18:15)
--- NOTE | 2017-12-02 18:28 | PN ---
Progress Note, Physician Chief Complaint: SOB History of Present Illness: NAD in chair, wants to go home family at bedside - Current Medication List Current Medications: Active Medications Acetaminophen (Tylenol -) 650 mg PO Q4H PRN PRN Reason: PAIN LEVEL 1-5 Last Admin: 11/30/17 11:45 Dose: 650 mg Allopurinol (Zyloprim -) 300 mg PO DAILY [facility] Last Admin: 12/02/17 09:46 Dose: 300 mg Atorvastatin Calcium (Lipitor -) 20 mg PO HS [facility] Last Admin: 12/01/17 21:51 Dose: 20 mg Methimazole (Tapazole -) 5 mg PO Q2D [facility] Metolazone (Zaroxolyn -) 5 mg PO DAILY@0930 [facility] Last Admin: 12/02/17 09:10 Dose: 5 mg Metoprolol Succinate (Toprol Xl -) 100 mg PO BID [facility] Last Admin: 12/02/17 09:46 Dose: 100 mg Polyethylene Glycol (Miralax (For Daily Use) -) 17 gm PO TID [facility] Last Admin: 12/02/17 14:23 Dose: 17 grams Potassium Chloride (K-Dur -) 40 meq PO DAILY [facility] Last Admin: 12/02/17 09:46 Dose: 40 meq Torsemide (Demadex -) 40 mg PO DAILY [facility] Last Admin: 12/02/17 09:46 Dose: 40 mg Warfarin Sodium 2 mg/ Warfarin (Sodium 5 mg) 7 mg PO DAILY@1800 [facility] Last Admin: 11/30/17 18:19 Dose: 7 mg - Objective Vital Signs: Vital Signs Temperature 98.1 F 12/02/17 14:00 Pulse Rate 72 12/02/17 09:00 Respiratory Rate 19 12/02/17 09:00 Blood Pressure 130/65 12/02/17 09:00 O2 Sat by Pulse Oximetry (%) 99 12/02/17 16:25 Constitutional: Yes: Well Nourished, No Distress, Calm Cardiovascular: Yes: Pulse Irregular Respiratory: Yes: Regular, Diminished (BLL) Gastrointestinal: Yes: Normal Bowel Sounds, Soft, Abdomen, Obese Musculoskeletal: Yes: WNL Extremities: Yes: WNL Edema: No Peripheral Pulses WNL: Yes Neurological: Yes: Alert, Oriented Psychiatric: Yes: Alert, Oriented Labs: CBC, BMP 11/30/17 09:05 12/02/17 07:00 INR, PTT INR 3.36 (0.82-1.09) H 12/02/17 07:00 Problem List - Problems (1) Shortness of breath Assessment/Plan: -Improved -Nasal O2, keep SpO2> 90% -SpO2 on RA was 79%, would need home oxygen -BIPAP as needed Code(s): R06.02 - SHORTNESS OF BREATH (2) CHF (congestive heart failure) Assessment/Plan: -Diuretics-torsemide and metalozone -seen by cardiology -daily weights -low sodium diet Code(s): I50.9 - HEART FAILURE, UNSPECIFIED (3) Ascites Assessment/Plan: -s/p paracentesis on 11/24 -Zaroxlyn and torsemide PO and on discharge Code(s): R18.8 - OTHER ASCITES Qualifiers: Ascites type: other type Qualified Code(s): R18.8 - Other ascites (4) Atrial fibrillation Assessment/Plan: -Warfarin on hold for elevated INR -recheck INR in AM Code(s): I48.91 - UNSPECIFIED ATRIAL FIBRILLATION Assessment/Plan see problem list
[2017-12-02] MEDS: WARFARIN NA 2 MG, WARFARIN NA 5 MG PO SCH (19:07)
[2017-12-02] MEDS: ACETAMINOPHEN 325 MG TABLET (FP) PO PRN (22:16)
[2017-12-02] MEDS: ATORVASTATIN CA 20 MG TABLET (FP) PO SCH (22:16)
[2017-12-03] MEDS: POLYETHYLENE GLYCOL 3350 119 GM BTL PO SCH ×3 (05:35→21:51)
[2017-12-03 07:25] LABS: INR 2.65 (0.82-1.09)
[2017-12-03] MEDS: METOLAZONE 5 MG TABLET PO SCH (09:18)
[2017-12-03] MEDS ORDERED: METHIMAZOLE 5 MG TABLET (FP) PO SCH (10:00)
[2017-12-03] MEDS ORDERED: PT OWN MED DRAWER 7, Y5N ONE (10:29)
[2017-12-03] MEDS: ALLOPURINOL 300 MG TABLET (FP) PO SCH (10:34)
[2017-12-03] MEDS: POTASSIUM CHLORIDE TABS 20 MEQ TABLET.ER (FP) PO SCH (10:34)
[2017-12-03] MEDS: TORSEMIDE 20 MG TABLET (FP) PO SCH (10:35)
[2017-12-03 11:04] LABS: CHLORIDE 95 mmol/L (98-107); POTASSIUM 3.6 mmol/L (3.5-5.1); SODIUM 142 mmol/L (136-145)
--- NOTE | 2017-12-03 11:13 | PN ---
Progress Note (short form) - Note Progress Note: PULMONARY OOB TO CHAIR WANTS TO GO HOME VSS/AFEBRILE ANICTERIC DIMINISHED BREATH SOUNDS BASES S1S2 OBESE LESS EDEMA LOWER EXT LABS/MEDS/NOTES/IMAGES REVIEWED Acute on Chronic Hypercapneic Respiratory Failure improving Acute on Chronic Diastolic Heart Failure Severe Pulmonary HTN Atrial Fibrillation Ascites Acute Kidney Injury improving HTN Hyperlipidemia OFELIA - diuretics as outlined by Associate Principal - monitor urine output, creatinine - daily weights - outpatient PSG to be arranged - BiPAP will likely be required - O2 to keep SpO2 >90%/needs home O2 - rate controlled - continue anticoagulation - PT eval - Have repeated CXR Monika HOWARD MD
[2017-12-03 11:14] LABS: ALK PHOS 124 U/L (45-117); ANION GAP 3 (8-16); BLOOD UREA NITROGEN 43 mg/dL (7-18); CALCIUM 8.6 mg/dL (8.5-10.1); CO2 44 mmol/L (21-32); CREATININE 1.4 mg/dL (0.55-1.02); GLUCOSE,RANDOM 101 mg/dL (74-106); SGOT/AST 23 U/L (15-37); SGPT/ALT 18 U/L (12-78); TOT PROT 5.5 g/dl (6.4-8.2)
--- NOTE | 2017-12-03 12:48 | PN ---
Progress Note, Physician Chief Complaint: SOB History of Present Illness: NAD in chair, wants to go home family at bedside needs home O2 - Current Medication List Current Medications: Active Medications Acetaminophen (Tylenol -) 650 mg PO Q4H PRN PRN Reason: PAIN LEVEL 1-5 Last Admin: 12/02/17 22:16 Dose: 650 mg Allopurinol (Zyloprim -) 300 mg PO DAILY [facility] Last Admin: 12/03/17 10:34 Dose: 300 mg Atorvastatin Calcium (Lipitor -) 20 mg PO HS [facility] Last Admin: 12/02/17 22:16 Dose: 20 mg Methimazole (Tapazole -) 5 mg PO Q2D [facility] Last Admin: 12/03/17 10:34 Dose: 5 mg Metolazone (Zaroxolyn -) 5 mg PO DAILY@0930 [facility] Last Admin: 12/03/17 09:18 Dose: 5 mg Metoprolol Succinate (Toprol Xl -) 100 mg PO BID [facility] Last Admin: 12/03/17 10:34 Dose: 100 mg Polyethylene Glycol (Miralax (For Daily Use) -) 17 gm PO TID [facility] Last Admin: 12/03/17 05:35 Dose: 17 grams Potassium Chloride (K-Dur -) 40 meq PO DAILY [facility] Last Admin: 12/03/17 10:34 Dose: 40 meq Torsemide (Demadex -) 40 mg PO DAILY [facility] Last Admin: 12/03/17 10:35 Dose: 40 mg Warfarin Sodium 2 mg/ Warfarin (Sodium 5 mg) 7 mg PO DAILY@1800 [facility] Last Admin: 12/02/17 19:07 Dose: Not Given - Objective Vital Signs: Vital Signs Temperature 98.2 F 12/03/17 06:00 Pulse Rate 70 12/03/17 06:00 Respiratory Rate 20 12/03/17 06:00 Blood Pressure 130/69 12/03/17 06:00 O2 Sat by Pulse Oximetry (%) 99 12/03/17 09:23 Constitutional: Yes: Well Nourished, No Distress, Calm Cardiovascular: Yes: Regular Rate and Rhythm Respiratory: Yes: Regular, Diminished (BLL) Gastrointestinal: Yes: Normal Bowel Sounds, Soft, Abdomen, Obese Musculoskeletal: Yes: WNL Extremities: Yes: WNL Edema: No Peripheral Pulses WNL: Yes Neurological: Yes: Alert, Oriented Psychiatric: Yes: Alert, Oriented Labs: CBC, BMP 11/30/17 09:05 12/03/17 06:45 INR, PTT INR 2.65 (0.82-1.09) H 12/03/17 06:45 Problem List - Problems (1) Shortness of breath Assessment/Plan: -Improved -Nasal O2, keep SpO2> 90% -SpO2 on RA was 79%, would need home oxygen -BIPAP eval PSG outpatient with Pulmonary Code(s): R06.02 - SHORTNESS OF BREATH (2) CHF (congestive heart failure) Assessment/Plan: -Diuretics-torsemide and metalozone -seen by cardiology -daily weights -low sodium diet Code(s): I50.9 - HEART FAILURE, UNSPECIFIED (3) Ascites Assessment/Plan: -s/p paracentesis on 11/24 -Zaroxlyn and torsemide PO and on discharge Code(s): R18.8 - OTHER ASCITES Qualifiers: Ascites type: other type Qualified Code(s): R18.8 - Other ascites (4) Atrial fibrillation Assessment/Plan: -Warfarin on hold for elevated INR -Last echo shows normal mitral valve -d/c warfarin -start Eliquis 5 mg po BID on 12/06/17- cleared by cardiology Code(s): I48.91 - UNSPECIFIED ATRIAL FIBRILLATION Assessment/Plan see problem list d/c home on Nasal O2 2lpm, with portable O2 tank as well.
--- NOTE | 2017-12-03 13:00 | DS ---
Physical Examination Vital Signs: Vital Signs Temperature 98.2 F 12/03/17 06:00 Pulse Rate 70 12/03/17 06:00 Respiratory Rate 20 12/03/17 06:00 Blood Pressure 130/69 12/03/17 06:00 O2 Sat by Pulse Oximetry (%) 99 12/03/17 09:23 Constitutional: Yes: Well Nourished, No Distress, Calm Cardiovascular: Yes: Regular Rate and Rhythm Respiratory: Yes: Regular, Diminished (BLL) Gastrointestinal: Yes: Normal Bowel Sounds, Soft, Abdomen, Obese Musculoskeletal: Yes: WNL Extremities: Yes: WNL Edema: No Peripheral Pulses WNL: Yes Neurological: Yes: Alert, Oriented Psychiatric: Yes: Alert, Oriented Labs: CBC, BMP 11/30/17 09:05 12/03/17 06:45 Discharge Summary Reason For Visit: ACUTE KIDNEY INJURY,SHORTNESS OF BREATH,ABD DISTEN Current Active Problems Abdominal distention (Acute) Acute kidney injury (Acute) Anemia (Acute) Ascites (Acute) Atrial fibrillation (Acute) Atrial fibrillation (Acute) CHF (congestive heart failure) (Acute) Chronic venous stasis dermatitis (Acute) Constipation (Acute) Cor pulmonale (chronic) (Acute) Diastolic heart failure (Acute) Heart failure, diastolic, with acute decompensation (Acute) Hyperthyroidism (Acute) Hypothyroidism (Acute) Lactic acidosis (Acute) Permanent atrial fibrillation (Acute) Pulmonary hypertension (Acute) Right ankle pain (Acute) Shortness of breath (Acute) Hospital Course: 81 YOF with h/o chronic constipation, A-fib on coumadin, HTN, HLD, and RLE venous stasis ulcer with prior bleeding varicose vein (seen by Dr. Prabhjot Long) , who was seen in office a few days ago with progressive swelling and refused admission and was started on diuretics and was seen in office yesterday and gained more wt and was advised to go to the ED to be seen for SOB, leg pain, and abdominal distention. The patient and her family state that for the past few weeks, she has been having worsening abdominal distention and leg swelling/ pain. She additionally has had worsening shortness of breath for the past several days, which she describes as becoming winded quickly when exerting herself. She has been taking MiraLax as always for her chronic constipation, her last bowel movement was this morning and was small, and there has been no change in her baseline constipation. She has had no night sweats, fever, chills , nausea, vomiting, diarrhea, chest pain, abdominal pain, back pain, black/ bloody stool, cough, or other symptoms. The family estimates she has gained at least 10 lbs in the past week. Condition: Stable - Instructions Diet, Activity, Other Instructions: -Low sodium diet -Nasal O2 2 lpm at all times -D/C Warfarin -Start Eliquis 5 mg 2 x day on 12/06/17- Cleared by Cardiology -Follow up with PCP and Pulmonary within 1 week. You need repeat labs- CBC/CMP within 1 week to recheck potassium levels -Follow up with Cardiology and Nephrology within 2 weeks -Start Torsemide 40 mg daily -Take Metalozone 5 mg daily 30 minutes prior to Torsemide to potentiate the effects of Torsemide Referrals: Bg Kilgore MD [Primary Care Provider] - Steven Yip MD [Staff Physician] - Eric Vincent MD [Staff Physician] - Denis Boogie MD [Staff Physician] - Disposition: VNS/HOME HEALTH CARE - Home Medications Comprehensive Discharge Medication List: Ambulatory Orders Allopurinol 300 mg PO DAILY 03/12/17 Amlodipine Besylate [Norvasc -] 5 mg PO DAILY 03/12/17 Aspirin [Ecotrin] 81 mg PO DAILY 03/12/17 Cholecalciferol (Vitamin D3) [Vitamin D3] 2,000 unit PO DAILY 03/12/17 Furosemide [Lasix] 40 mg PO BID 03/12/17 Losartan Potassium 100 mg PO DAILY 03/12/17 Methimazole 5 mg PO DAILY 03/12/17 Metoprolol Succinate [Toprol Xl] 100 mg PO BID 03/12/17 Pravastatin Sodium [Pravachol -] 80 mg PO HS 03/12/17 hydrALAZINE HCL [Apresoline -] 100 mg PO BID 03/12/17 Acetaminophen 325 mg PO Q4H PRN 11/20/17 Polyethylene Glycol 3350 [Miralax 119 gm Btl -] 17 gm PO DAILY PRN 11/20/17 Metolazone [Zaroxolyn -] 5 mg PO DAILY@0930 #30 tablet 12/02/17 Potassium Chloride [K-Dur -] 40 meq PO DAILY #30 tablet.er 12/02/17 Torsemide [Demadex -] 40 mg PO DAILY #60 tablet 12/02/17 Apixaban [Eliquis] 5 mg PO BID #60 tablet 12/03/17
[2017-12-03] MEDS: ATORVASTATIN CA 20 MG TABLET (FP) PO SCH (21:50)
[2017-12-04] MEDS: POLYETHYLENE GLYCOL 3350 119 GM BTL PO SCH ×2 (05:58→15:00)
--- NOTE | 2017-12-04 07:39 | DS ---
Physical Examination Vital Signs: Vital Signs Temperature 98.0 F 12/04/17 05:36 Pulse Rate 66 12/04/17 05:36 Respiratory Rate 18 12/04/17 05:36 Blood Pressure 145/66 12/04/17 05:36 O2 Sat by Pulse Oximetry (%) 97 12/03/17 21:00 Findings/Remarks: feels better' sitting up Cardiovascular: Yes: Regular Rate and Rhythm Respiratory: Yes: Regular, CTA Bilaterally Gastrointestinal: Yes: Normal Bowel Sounds, Soft, Ascites (less) Edema: Yes Labs: CBC, BMP 11/30/17 09:05 12/03/17 06:45 Discharge Summary Reason For Visit: ACUTE KIDNEY INJURY,SHORTNESS OF BREATH,ABD DISTEN Current Active Problems Abdominal distention (Acute) Acute kidney injury (Acute) Anemia (Acute) Ascites (Acute) Atrial fibrillation (Acute) Atrial fibrillation (Acute) CHF (congestive heart failure) (Acute) Chronic venous stasis dermatitis (Acute) Constipation (Acute) Cor pulmonale (chronic) (Acute) Diastolic heart failure (Acute) Heart failure, diastolic, with acute decompensation (Acute) Hyperthyroidism (Acute) Hypothyroidism (Acute) Lactic acidosis (Acute) Permanent atrial fibrillation (Acute) Pulmonary hypertension (Acute) Right ankle pain (Acute) Shortness of breath (Acute) Hospital Course: 81 YOF with h/o chronic constipation, A-fib on coumadin, HTN, HLD, and RLE venous stasis ulcer with prior bleeding varicose vein (seen by Dr. Prabhjot Long) , who was seen in office a few days ago with progressive swelling and refused admission and was started on diuretics and was seen in office yesterday and gained more wt and was advised to go to the ED to be seen for SOB, leg pain, and abdominal distention. The patient and her family state that for the past few weeks, she has been having worsening abdominal distention and leg swelling/ pain. She additionally has had worsening shortness of breath for the past several days, which she describes as becoming winded quickly when exerting herself. She has been taking MiraLax as always for her chronic constipation, her last bowel movement was this morning and was small, and there has been no change in her baseline constipation. She has had no night sweats, fever, chills , nausea, vomiting, diarrhea, chest pain, abdominal pain, back pain, black/ bloody stool, cough, or other symptoms. The family estimates she has gained at least 10 lbs in the past week. Condition: Stable - Instructions Diet, Activity, Other Instructions: -Low sodium diet -Nasal O2 2 lpm at all times -D/C Warfarin -Start Eliquis 5 mg 2 x day on 12/06/17- Cleared by Cardiology -Follow up with PCP and Pulmonary within 1 week. You need repeat labs- CBC/CMP within 1 week to recheck potassium levels -Follow up with Cardiology and Nephrology within 2 weeks -Start Torsemide 40 mg daily -Take Metalozone 5 mg daily 30 minutes prior to Torsemide to potentiate the effects of Torsemide Referrals: Bg Kilgore MD [Primary Care Provider] - Steven Yip MD [Staff Physician] - Eric Vincent MD [Staff Physician] - Denis Boogie MD [Staff Physician] - Disposition: VNS/HOME HEALTH CARE - Problems (1) Shortness of breath Assessment/Plan: -Improved -Nasal O2, keep SpO2> 90% -SpO2 on RA was 79%, would need home oxygen -BIPAP eval PSG outpatient with Pulmonary Code(s): R06.02 - SHORTNESS OF BREATH (2) CHF (congestive heart failure) Assessment/Plan: -Diuretics-torsemide and metalozone -seen by cardiology -daily weights -low sodium diet Code(s): I50.9 - HEART FAILURE, UNSPECIFIED (3) Ascites Assessment/Plan: -s/p paracentesis on 11/24 -Zaroxlyn and torsemide PO and on discharge Code(s): R18.8 - OTHER ASCITES Qualifiers: Ascites type: other type Qualified Code(s): R18.8 - Other ascites (4) Atrial fibrillation Assessment/Plan: -Warfarin on hold for elevated INR -Last echo shows normal mitral valve -d/c warfarin -start Eliquis 5 mg po BID on 12/06/17- cleared by cardiology Code(s): I48.91 - UNSPECIFIED ATRIAL FIBRILLATION Assessment/Plan see problem list d/c home on Nasal O2 2lpm, with portable O2 tank as well. Condition: Stable - Instructions Diet, Activity, Other Instructions: -Low sodium diet -Nasal O2 2 lpm at all times -D/C Warfarin -Start Eliquis 5 mg 2 x day on 12/06/17- Cleared by Cardiology -Follow up with PCP and Pulmonary within 1 week. You need repeat labs- CBC/CMP within 1 week to recheck potassium levels -Follow up with Cardiology and Nephrology within 2 weeks -Start Torsemide 40 mg daily in AM -Take Metalozone 5 mg daily in AM 30 minutes prior to Torsemide to potentiate the effects of Torsemide -Start Potassium Chloride 40 meq daily in AM -Take Methimazole 5 mg every 2 days -Take Miralax 17g 3 x day -Take Atorvastatin 20 mg daily at Bedtime -D/C Losartan, Amlodipine(Norvasc) and pravastatin Referrals: Bg Kilgore MD [Primary Care Provider] - Steven Yip MD [Staff Physician] - Eric Vincent MD [Staff Physician] - Denis Boogie MD [Staff Physician] - Disposition: VNS/HOME HEALTH CARE - Home Medications Comprehensive Discharge Medication List: Ambulatory Orders Allopurinol 300 mg PO DAILY 03/12/17 Aspirin [Ecotrin] 81 mg PO DAILY 03/12/17 Cholecalciferol (Vitamin D3) [Vitamin D3] 2,000 unit PO DAILY 03/12/17 Metoprolol Succinate [Toprol Xl] 100 mg PO BID 03/12/17 Acetaminophen 325 mg PO Q4H PRN 11/20/17 Metolazone [Zaroxolyn -] 5 mg PO DAILY@0930 #30 tablet 12/02/17 Potassium Chloride [K-Dur -] 40 meq PO DAILY #30 tablet.er 12/02/17 Torsemide [Demadex -] 40 mg PO DAILY #60 tablet 12/02/17 Apixaban [Eliquis] 5 mg PO BID #60 tablet 12/03/17 Atorvastatin Ca [Lipitor] 20 mg PO HS #30 tablet 12/03/17 Methimazole [Tapazole -] 5 mg PO Q2D tablet 12/03/17 Polyethylene Glycol 3350 [Miralax 119 gm Btl -] 17 gm PO TID #3 bottle 12/03/17
[2017-12-04] MEDS: METOLAZONE 5 MG TABLET PO SCH (08:34)
[2017-12-04 08:49] VITALS: BP 149/66; PULSE 75; TEMP 97.7
[2017-12-04] MEDS ORDERED: PT OWN MED DRAWER 7, Y5N ONE (09:37)
[2017-12-04] MEDS: POTASSIUM CHLORIDE TABS 20 MEQ TABLET.ER (FP) PO SCH (09:39)
[2017-12-04] MEDS: TORSEMIDE 20 MG TABLET (FP) PO SCH (09:41)
[2017-12-04] MEDS: ALLOPURINOL 300 MG TABLET (FP) PO SCH (09:42)
== END 2017-12-04 14:33 | disposition home health service (06) | DRG 291 ==
LOC: JER 11:47 → JERBED 15:25 → J4W 19:24 → J6S 11-27 12:35
PROVIDERS: ADMIT Family Medicine; ATTEND Family Medicine
PROC: 5A09557 Assistance with Respiratory Ventilation, Greater than 96 Consecutive Hours, Continuous Positive Airway Pressure (ICD-10-PCS; 2017-11-20)
PROC: 0W9G3ZX Drainage of Peritoneal Cavity, Percutaneous Approach, Diagnostic (ICD-10-PCS; principal; 2017-11-24)
DX: I13.0 Hypertensive heart and chronic kidney disease with heart failure and stage 1 through stage 4 chronic kidney disease, or unspecified chronic kidney disease (principal); I50.33 Acute on chronic diastolic (congestive) heart failure; J96.22 Acute and chronic respiratory failure with hypercapnia; G93.41 Metabolic encephalopathy; N17.9 Acute kidney failure, unspecified; R18.8 Other ascites; E87.2 Acidosis; D64.9 Anemia, unspecified; K59.00 Constipation, unspecified; E03.9 Hypothyroidism, unspecified; I48.2 Chronic atrial fibrillation; I27.20 Pulmonary hypertension, unspecified; E78.5 Hyperlipidemia, unspecified; G47.33 Obstructive sleep apnea (adult) (pediatric); E87.70 Fluid overload, unspecified; E05.90 Thyrotoxicosis, unspecified without thyrotoxic crisis or storm; R14.0 Abdominal distension (gaseous); E66.9 Obesity, unspecified; Z68.35 Body mass index [BMI] 35.0-35.9, adult; I27.21 Secondary pulmonary arterial hypertension; N18.3 Chronic kidney disease, stage 3 (moderate); I87.2 Venous insufficiency (chronic) (peripheral)
CPT/HCPCS: 36415; 36600; 71045-TC-FY; 71250-TC; 73610-TC-RT-FY; 73630-TC-RT-FY; 74176-TC; 76942-TC; 80048; 80053; 81003; 81015; 82042; 82150; 82172; 82247; 82465; 82550; 82570; 82728; 82803; 82945; 82947; 82977; 83010; 83540; 83550; 83605; 83615; 83690; 83735; 83883; 84100; 84156; 84157; 84300; 84439; 84443; 84450; 84460; 84478; 84484; 84540; 85025; 85610; 85730; 86038; 86140; 86304; 86704; 86706; 86708; 86850; 86900; 86901; 87040; 87070; 87075; 87086; 87102; 87116; 87205; 87206; 87210; 87340; 88108; 88305-TC; 89051; 93005; 93010; 93306-TC; 93970-TC; 94660; 94761; 97116-GP; 97161-GP; 99284-25

== ENCOUNTER 2019-01-09 13:05 | Emergency (ER) | payer OTHER ==
[2019-01-09 13:28] VITALS: BP 165/83; PULSE 74; TEMP 97.5; BMI 25.0
--- NOTE | 2019-01-09 14:10 | PDOC ---
History of Present Illness - General Chief Complaint: Laceration Stated Complaint: BLEEDING BLOOD VESSEL Time Seen by Provider: 01/09/19 13:24 History Source: Patient Exam Limitations: No Limitations - History of Present Illness Initial Comments: Pt is an 83 yo F, with PMH of CHF, HTN, HLD, AFib (on Eliquis 5 mg BID), and chronic PVD in b/l LE, who is presenting with complaints of acute bleeding from the top of her R foot which started shortly prior to presentation. Pt took a hot shower, and then she was walking around the house when she noticed spontaneous bleeding from the top of the R foot. She applied pressure with a towel but soaked through the small towel and called EMS. She denies any abrasions or trauma to the foot. Pt states she has had "5 or 6 grafts done" by Dr. Long on the R leg, and was following him in wound clinic until last year. Pt states the color of her legs and varicose veins have seemed at her baseline. Pt denies any fevers/chills, headache, light-headedness, vision changes, syncope , chest pain, palpitations, SOB, nausea/vomiting, abdominal pain, urinary symptoms, diarrhea/constipation, or leg swelling. Social: Pt denies any cigarette, alcohol, or drug use. Pt denies any recent travel or sick contacts. Surgical: "venous grafts" of b/l LE per pt Family: no relevant history. 01/09/19 14:48 Past History - Travel Traveled outside of the country in the last 30 days: No Close contact w/someone who was outside of country & ill: No - Past Medical History Allergies/Adverse Reactions: Allergies Allergy/AdvReac Type Severity Reaction Status Date / Time No Known Allergies Allergy Verified 01/09/19 13:17 Home Medications: Ambulatory Orders Allopurinol 300 mg PO DAILY 03/12/17 Aspirin [Ecotrin] 81 mg PO DAILY 03/12/17 Cholecalciferol (Vitamin D3) [Vitamin D3] 2,000 unit PO DAILY 03/12/17 Metoprolol Succinate [Toprol Xl] 100 mg PO BID 03/12/17 Potassium Chloride [K-Dur -] 40 meq PO DAILY #30 tablet.er 12/02/17 Apixaban [Eliquis] 5 mg PO BID #60 tablet 12/03/17 Cardiac Disorders: Yes (A-Fib) COPD: No CHF: Yes HTN: Yes Hypercholesterolemia: Yes Thyroid Disease: Yes (hypothyroid) - Suicide/Smoking/Psychosocial Hx Smoking History: Never smoked Have you smoked in the past 12 months: No Hx Alcohol Use: No Drug/Substance Use Hx: No Substance Use Type: None Review of Systems - Review of Systems Able to Perform ROS?: Yes Is the patient limited Bhutanese proficient: No Constitutional: Yes: Weight Stable. No: Chills, Diaphoresis, Fever, Loss of Appetite, Malaise, Weakness HEENTM: No: Recent change in vision, Nose Congestion, Throat Pain Respiratory: No: Cough, Orthopnea, Shortness of Breath Cardiac (ROS): No: Chest Pain, Edema, Irregular Heart Rate, Lightheadedness, Palpitations, Syncope, Chest Tightness ABD/GI: No: Constipated, Diarrhea, Nausea, Poor Appetite, Poor Fluid Intake, Vomiting : No: Burning, Dysuria, Pain Musculoskeletal: No: Back Pain, Joint Pain, Muscle Weakness Integumentary: Yes: See HPI, Other (varicose veins, chronic venous stasis (sees Dr. Long), burst vessel today). No: Bruising, Change in Color, Rash Neurological: No: Numbness, Paresthesia, Unsteady Gait, Dizziness Psychiatric: No: Sleep Pattern Change, Change in Appetite Endocrine: No: Increased Urine, Change in Weight Hematologic/Lymphatic: Yes: Blood Clots (chronic varicose (on eliquis)), Easy Bleeding. No: Anemia, Easy Bruising All Other Systems: Reviewed and Negative *Physical Exam - Vital Signs Last Vital Signs Temp Pulse Resp BP Pulse Ox 97.5 F L 74 16 165/83 100 01/09/19 13:25 01/09/19 13:25 01/09/19 13:25 01/09/19 13:25 01/09/19 13:25 - Physical Exam Comments: Mild HTN 165/83, pt afebrile. Pt in NAD, normal body habitus. Pt alert and oriented x3. 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 No midline spinal tenderness, step-offs, or crepitus. Head normocephalic, atraumatic. Eyes PERRLA, EOMI. Oropharynx without erythema or exudates, no LAD b/l. No nasal congestion, hearing intact. Clear heart sounds, S1/S2, no JVD, b/l pedal edema, or heart murmur. Clear lung sounds, no respiratory distress, wheezes, crackles, or accessory muscle use. No abdominal or CVA tenderness to palpation, no rebound, no guarding. Abdomen soft, non-distended, and with normoactive bowel sounds. Varicose veins on b/l LE with hyperpigmentation that appears as chronic venous stasis. Small area of active bleeding (<.5 cm) from burst varicose on dorsal aspect of R foot. Bleeding through pressure bandage with oozing. Skin otherwise without jaundice or rash. Intact DP pulses b/l. 01/09/19 14:07 Repeat exam showed no continued bleeding through surgicell. Surrounding area was wiped clean with sterile saline. 01/09/19 14:49 ED Treatment Course - LABORATORY CBC & Chemistry Diagram: 01/09/19 14:20 Medical Decision Making - Medical Decision Making Pt was seen at bedside, also will be seen by attending Dr. Dick. Pt presenting with complaints of acute bleeding from the top of her R foot which started shortly prior to presentation. Pt took a hot shower, and then she was walking around the house when she noticed spontaneous bleeding from the top of the R foot. She applied pressure with a towel but soaked through the small towel and called EMS. She denies any abrasions or trauma to the foot. Pt states she has had "5 or 6 grafts done" by Dr. Long on the R leg, and was following him in wound clinic until last year. Pt states the color of her legs and varicose veins have seemed at her baseline. Pt denies any fevers/chills, headache, light- headedness, vision changes, syncope, chest pain, palpitations, SOB, nausea/ vomiting, abdominal pain, urinary symptoms, diarrhea/constipation, or leg swelling. Ordered CBC to assess for acute blood loss and to have a baseline in case pt has subsequent bleeding at home and needs to return. Appears to be burst varicose vein, as pt appears to have multiple varicosities/ aneurysms across b/l ricardo surfaces. Attempting to stop bleeding with multiple layers of surgicell and krelex wrap. Will place figure 8 suture if bleeding is not controlled. 01/09/19 14:11 01/09/19 14:30 H/H stable. Bleeding has stopped with krelex and fresh jv bandage was applied. Pt has not continued to bleed through surgicell. Pt safe for discharge home. Advised pt to keep leg elevated and to keep the dressing applied until tomorrow. Strict return precautions provided with pt understanding. Provided referrals to Dr. Kilgore (PCP) and Dr. Long (vascular). 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 The results of your labs today showed no anemia. Please follow-up with your primary care doctor and Dr. Long (vascular) within 1-2 days to discuss your visit and make sure your symptoms have improved. Please return to the ER if you have any worsening pain or continued bleeding, numbness or tingling in your foot, development of fevers or chills, loss of consciousness, inability to tolerate food or fluids, or any other concerns. - Post Discharge Activity
[2019-01-09 14:36] LABS: BASO % 0.7 % (0-2.0); EOS % 1.3 % (0-4.5); HEMATOCRIT 40.1 % (32.4-45.2); HEMOGLOBIN 13.4 GM/dL (10.7-15.3); LYMPH % 7.7 % (8-40); MCH 29.7 pg (25.7-33.7); MCHC 33.4 g/dl (32.0-36.0); MEAN CELL VOLUME 89.1 fl (80-96); MEAN PLT VOLUME 9.1 fl (7.5-11.1); MONO % 7.2 % (3.8-10.2); NEUT % 83.1 % (42.8-82.8); PLATELET COUNT 189 K/MM3 (134-434); RBC 4.51 M/mm3 (3.60-5.2); RDW 16.2 % (11.6-15.6); WHITE BLOOD COUNT 11.5 K/mm3 (4.0-10.0)
--- NOTE | 2019-01-11 18:58 | PDOC ---
Documentation entered by Daphney Crocker SCRIBE, acting as scribe for Yary Dick MD. Yary Dick MD: This documentation has been prepared by the Obi greenwood Sammi, SCRIBE, under my direction and personally reviewed by me in its entirety. I confirm that the documentation accurately reflects all work, treatment, procedures, and medical decision making performed by me. Attending Attestation - Resident Resident Name: Lani Coles - ED Attending Attestation I have performed the following: I have examined & evaluated the patient, The case was reviewed & discussed with the resident, I agree w/resident's findings & plan, Exceptions are as noted - HPI HPI: 01/09/19 14:45 The patient is an 83 year old female, with a significant PMH of CHF, HTN, HLD, A -fib on eliquis, HTN, HLD, and RLE venous stasis ulcer with prior bleeding varicose vein, who presents today for evaluation of a burst vessel. The patient states she was getting out of a hot shower when she started to bleed profusely which hasnt subsided. She denies trauma to the area. Patient notes a similar experience to her leg. - Physicial Exam PE: 01/09/19 14:25 GENERAL: The patient is in no acute distress. ENT: Ears normal, nares patent, oropharynx clear without exudates. Moist mucous membranes. No tonsillar enlargement, no exudates NECK: Normal range of motion, supple LUNGS: Breath sounds equal, clear to auscultation bilaterally. No wheezes, and no crackles. HEART:Regular rate and rhythm, normal S1 and S2 without murmur, rub or gallop. ABDOMEN: Soft, nontender, normoactive bowel sounds. EXTREMITIES: Normal range of motion, no edema. NEUROLOGICAL: Cranial nerves II through XII grossly intact. Normal speech. No focal neurological deficits. SKIN: right foot pin point area of bleeding, multiple varicosities noted 01/09/19 14:43 - Medical Decision Making 01/09/19 14:44 Clinical Impression: bleeding varicosity Applied Surgicel Wound wrapped pt observed with no repeat bleeding Pt asked to follow up with PMD and Dr Long for definitive care Pt encouraged NOT to hit her foot Return to the ER IMMEDIATELY for any other concerns or complaints
== END 2019-01-09 14:47 | disposition home or self-care (01) ==
LOC: JER 13:05
DX: I77.0 Arteriovenous fistula, acquired (principal); I83.91 Asymptomatic varicose veins of right lower extremity; R58 Hemorrhage, not elsewhere classified; I50.9 Heart failure, unspecified; E03.9 Hypothyroidism, unspecified; E78.00 Pure hypercholesterolemia, unspecified; I10 Essential (primary) hypertension; I48.91 Unspecified atrial fibrillation
CPT/HCPCS: 36415; 85025; 99282-25